=== PATIENT | male | born 1955 | race Caucasian/White ===

== ENCOUNTER 2017-04-12 14:59 | Emergency (ER) | payer OTHER ==
[~2017-04-12] VITALS: Ht 177.8 cm; Wt 54.4 kg
[2017-04-12 16:20] LABS: BASOPHILS % (AUTO) 1.2 % (0.0-2.0); MEAN CORPUSCULAR HEMOGLOBIN 29.1 PG (27.0-31.0); MEAN CORPUSCULAR HGB CONC 32.8 G/DL (32.0-36.0); MEAN CORPUSCULAR VOLUME 89 FL (80-99); MEAN PLATELET VOLUME 5.5 FL (6.5-10.1); MONOCYTES % (AUTO) 7.9 % (1.0-10.0); NEUTROPHILS % (AUTO) 63.8 % (45.0-75.0); PLATELET COUNT 273 K/UL (150-450); RED BLOOD COUNT 3.98 M/UL (4.70-6.10); RED CELL DISTRIBUTION WIDTH 11.2 % (11.6-14.8); WHITE BLOOD COUNT 12.5 K/UL (4.8-10.8)
[2017-04-12 16:54] LABS: ALANINE AMINOTRANSFERASE 9 U/L (3-41); ALBUMIN/GLOBULIN RATIO 1.3 (1.0-2.7); ANION GAP 11 (5-15); ASPARTATE AMINO TRANSFERASE 13 U/L (5-40); CALCIUM 9.5 mg/dL (8.6-10.2); CARBON DIOXIDE 27 mEQ/L (20-30); CHLORIDE 93 mEQ/L (98-107); CREATININE 0.8 mg/dL (0.7-1.2); GLOMERULAR FILTRATION RATE > 60 mL/min (>60); HEMOLYSIS 44; POTASSIUM 4.7 mEQ/L (3.4-4.9); SODIUM 131 mEQ/L (135-145); TOTAL PROTEIN 6.5 g/dL (6.6-8.7)
[2017-04-12 16:55] LABS: TROPONIN I 0.003 ng/mL (0.000-0.056)
[2017-04-12 17:05] LABS: CKMB 1.7 ng/mL (< 6.7)
[2017-04-12] MEDS ORDERED: Enoxaparin 60mg Inj SUBQ ONE (18:30)
--- NOTE | 2017-04-12 18:38 | Emergency Room Report ---
History of Present Illness General Chief Complaint: Generalized Weakness Source: Patient, EMS Present Illness HPI 61YOM came in with 1 month of 15lb unintentional weight loss, loss of appetite, ?doesnt like food at SNF. Not getting out of bed much lately. Bedsores on right hip, top of head History of DM Denies history of TB, HIV, CHF, CAD Allergies: Coded Allergies: No Known Allergies (Unverified , 04/12/17) Patient History Past Medical History: DM Past Surgical History: none Pertinent Family History: none Social History: Denies: smoking, alcohol use, drug use Immunizations: UTD Reviewed Nursing Documentation: PMH: Agreed, PSxH: Agreed Nursing Documentation-PMH Hx Hypertension: Yes Hx Diabetes: Yes History Of Psychiatric Problem: Yes - anxiety Review of Systems All Other Systems: negative except mentioned in HPI Physical Exam Vital Signs Date Time Temp Pulse Resp B/P (MAP) Pulse Ox O2 Delivery O2 Flow Rate FiO2 04/12/17 15:04 98.2 88 16 92/68 98 Room Air Sp02 EP Interpretation: reviewed, normal General Appearance: normal inspection, well appearing, no apparent distress, alert, GCS 15, non-toxic Head: normocephalic, atraumatic Eyes: bilateral eye PERRL, bilateral eye EOMI ENT: normal ENT inspection, hearing grossly normal, normal voice Neck: normal inspection, full range of motion, supple, no bony tend Respiratory: normal inspection, lungs clear, normal breath sounds, no respiratory distress, no retraction, no wheezing Cardiovascular #1: regular rate, rhythm, no edema Gastrointestinal: normal inspection, normal bowel sounds, non tender, soft, no guarding, no hernia Genitourinary: no CVA tenderness Musculoskeletal: normal inspection, back normal, normal range of motion, Francy' s Sign negative Neurologic: normal inspection, alert, oriented x3, responsive, living specialist III-XII nml as tested, motor strength/tone normal, speech normal Psychiatric: normal inspection, judgement/insight normal, mood/affect normal Skin: no rash, other - Stage 1 decub right hip. Also stage 1 decub to top of head Medical Decision Making Diagnostic Impression: Primary Impression: Unintentional weight loss Additional Impression: Troponin level elevated ER Course VSS. Afebrile. Patient ate 3 sandwiches in ED, 3 juices Mildly elevated troponin but denies chest pain, SOB, abd pain ECG is NSR, no ischemia Serial troponin increase from 0.003 to 0.006 after 3 hours Was given ASA, lovenox. Still asymptomatic at 812pm Walking around ED Endorsed to Dr Brandt at 712pm for transfer EKG Diagnostic Results Rate: normal Rhythm: NSR ST Segments: no acute changes ASA given to the pt in ED: No Rhythm Strip Diag. Results EP Interpretation: yes Rate: 63 Rhythm: NSR, no PVC's, no ectopy Chest X-Ray Diagnostic Results Chest X-Ray Diagnostic Results : Chest X-Ray Ordered: Yes # of Views/Limited/Complete: 1 View Indication: Other - Weakness EP Interpretation: Yes Interpretation: no consolidation, no effusion, no pneumothorax, no acute cardiopulmonary disease Impression: No acute disease Electronically Signed by: Dr Megha Logan MD Last Vital Signs Date Time Temp Pulse Resp B/P (MAP) Pulse Ox O2 Delivery O2 Flow Rate FiO2 04/12/17 15:04 98.2 88 16 92/68 98 Room Air Status: improved Disposition: ADMITTED INPATIENT Condition: Serious Referrals: ROMINA SIMMS (PCP) MEGHA LOGAN M.D. Apr 12, 2017 18:38
[2017-04-12 20:06] VITALS: BP 112/66
[2017-04-12 20:31] VITALS: BP 112/66
[2017-04-12 21:29] LABS: INR 1.1 (0.9-1.1); PROTHROMBIN TIME 11.5 SEC (9.30-11.50)
--- NOTE | 2017-04-13 11:08 | Diagnostic Imaging Report ---
Indication: Shortness of breath Technique: XRAY CHEST 1 V Comparison: None Findings: Cardiomediastinal silhouette is within normal limits. There is no gross consolidation, pneumothorax or pleural effusion. Atherosclerotic changes are present. Osseous structures demonstrate no acute abnormality. Lungs are mildly hyperinflated. Impression: No acute cardiopulmonary disease.
--- NOTE | 2017-04-18 23:11 | Cardiology Report ---
APPROVED REPORT EKG Measurement Heart [id number] Normal sinus rhythm Nonspecific ST abnormality Abnormal ECG
== END 2017-04-12 20:33 | disposition other institution (70) ==
LOC: EDBD 14:59 → EMR 15:40 → EDBEDREQSVC 18:03 → EDBEDREQ 18:04 → EMR 20:33
DX: R63.4 Abnormal weight loss (principal); R79.89 Other specified abnormal findings of blood chemistry; E11.9 Type 2 diabetes mellitus without complications; I10 Essential (primary) hypertension; F41.9 Anxiety disorder, unspecified
CPT/HCPCS: 36415; 71010; 80053; 82550; 82553; 84484; 85025; 85610; 85730; 93005; 99285; J1650

== ENCOUNTER 2017-12-15 19:07 | Emergency (ER) | payer OTHER ==
[~2017-12-15] VITALS: Ht 180.3 cm; Wt 59.0 kg
[2017-12-15] MEDS ORDERED: Bacitracin Oint UD TOPIC ONE (20:15)
--- NOTE | 2017-12-15 23:05 | Emergency Room Report ---
History of Present Illness General Chief Complaint: Multiple Trauma/Fall Source: Patient, EMS Present Illness HPI Patient was sent from [facility] for evaluation after a fall and head injury. Uncertain whether he passed out but he denies this. Scraped eyebrow area. Denies pain there to me. The patient's complaining about to mouth/gum pain after having recent gum surgery several days ago. On antibiotics for this. He states his tetanus is up-to-date. The patient is a diabetic on insulin and metformin. H/O muscle weakness/neuropathy No chest pain, palpitations, constipation, dysuria, new rashes, neck tenderness , cough, NVD Depressed - on psych meds. H/O DVT, no calf tenderness/swelling Allergies: Coded Allergies: No Known Allergies (Unverified , 04/12/17) Patient History Past Medical History: see triage record Social History Narrative SNF Reviewed Nursing Documentation: PMH: Agreed; PSxH: Agreed Nursing Documentation-PMH Past Medical History: No History, Except For Hx Cardiac Problems: No - neuropathy, hyperlipidemia Hx Hypertension: Yes Hx Diabetes: Yes - Type 2 Hx Dialysis: No - Deep Vein Thrombosis History Of Psychiatric Problem: Yes - Anxiety, Psychosis Hx Neurological Problems: Yes - Neuralgia, Neuritis Review of Systems All Other Systems: negative except mentioned in HPI Physical Exam Vital Signs Date Time Temp Pulse Resp B/P (MAP) Pulse Ox O2 Delivery O2 Flow Rate FiO2 12/15/17 18:58 98.1 82 16 84/61 98 Room Air 98.1 Sp02 EP Interpretation: reviewed, normal General Appearance: no apparent distress, alert, GCS 15, non-toxic, Chronically Ill Head: normocephalic Eyes: bilateral eye normal inspection, bilateral eye PERRL ENT: moist mucus membranes - gum pain and mouth pain Neck: supple, no bony tend Respiratory: chest non-tender, lungs clear, normal breath sounds Cardiovascular #1: regular rate, rhythm Cardiovascular #2: 2+ radial (R) Gastrointestinal: normal inspection, normal bowel sounds, non tender, no mass, non-distended Musculoskeletal: back normal, normal range of motion Neurologic: alert, DTRs symmetric, sensory intact, motor weakness - generalized weakness, oriented - X2 Psychiatric: depressed affect Skin: warm/dry, abrasions - L eyebrow Medical Decision Making Diagnostic Impression: Primary Impression: Head injury Qualified Codes: S09.90XA - Unspecified injury of head, initial encounter Additional Impression: Diabetes Qualified Codes: E11.42 - Type 2 diabetes mellitus with diabetic polyneuropathy; Z79.4 - [facility] (current) use of insulin ER Course Patient presents after fall and head injury. Differential includes bleed, contusion, abrasion. The patient remembers falling. He has no neck pain. CT is indicated. He's not on Coumadin at this time even though he has a history of DVTs in the past. The patient declines Tylenol. He's also refusing to have bacitracin applied. CT with chronic changes, no bleed. Accucheck 121. Patient stable for outpatient observation and treatment. CT/MRI/US Diagnostic Results CT/MRI/US Diagnostic Results : Imaging Test Ordered: head Impression no bleed Last Vital Signs Date Time Temp Pulse Resp B/P (MAP) Pulse Ox O2 Delivery O2 Flow Rate FiO2 12/16/17 01:13 98.1 69 16 108/69 97 Room Air 98.1 Status: improved Disposition: [facility] SN[facility] Condition: Improved Scripts Bacitracin (Bacitracin) 28.4 Gm Oint...g. 1 APPLIC TOPIC BID, #20 GM Prov: Davy Cowart M.D. 12/15/17 Referrals: [facility],REFERRING (PCP) Davy Cowart M.D. Dec 15, 2017 23:05
[2017-12-15] MEDS ORDERED: BACITRACIN15 GM TOPIC (23:08)
[2017-12-15] MEDS ORDERED: ACETAMINOP160 MG/55 ORAL (23:11)
[2017-12-15] MEDS ORDERED: AMOXICILLI400 MG/5 M ORAL (23:12)
[2017-12-15] MEDS ORDERED: LANTUS SOL100 UNIT/1 SUBQ ×2 (23:13→23:14)
[2017-12-15] MEDS ORDERED: GABAPENTIN100 MG ORAL (23:14)
[2017-12-15] MEDS ORDERED: BENADRYL25 MG ORAL (23:14)
[2017-12-15] MEDS ORDERED: GLUCAGEN1 M1 IJ (23:15)
[2017-12-15] MEDS ORDERED: IBUPROFEN600 MG ORAL (23:16)
[2017-12-15] MEDS ORDERED: MULTIVITAMINS1 EAC2 ORAL (23:17)
[2017-12-15] MEDS ORDERED: METFORMIN HCL500 M1 ORAL (23:17)
[2017-12-15] MEDS ORDERED: MILK OF MA400 MG/51 ORAL (23:17)
[2017-12-15] MEDS ORDERED: NORCO 5-325 TA1 EACH ORAL (23:18)
[2017-12-15] MEDS ORDERED: ZYPREXA5 MG ORAL (23:19)
[2017-12-15] MEDS ORDERED: MIRTAZAPINE15 MG ORAL (23:19)
[2017-12-15] MEDS ORDERED: TRAMADOL HCL50 MG ORAL (23:20)
[2017-12-15 23:34] VITALS: BP 113/73
[2017-12-16 01:11] VITALS: BP 108/69
[2017-12-16 01:13] VITALS: BP 108/69
--- NOTE | 2017-12-16 09:07 | Diagnostic Imaging Report ---
Indication: Trauma, pain, status post fall, fell and hit head with abrasion on forehead Technique: spiral acquisitions obtained through the brain. Angled axial and coronal 5 x 5 mm slices were reconstructed. No IV contrast utilized. Radiation dose was minimized using automated exposure control Total dose length product 1492.21 mGycm. CTDIvol(s) 70.38 mGy Comparison: none FINDINGS: No acute hemorrhage or edema. No mass effect or midline shift. There is age-related enlargement of the ventricles and extra axial CSF spaces. There is periventricular deep white matter ischemic change. Normal kilpatrick-white differentiation. Visualized orbits are unremarkable. Visualized sinuses are unremarkable. Intact calvarium. There is minimal supraorbital scalp soft tissue swelling IMPRESSION: Chronic and age-related changes. Negative for acute intracranial bleed or mass effect Evidence of minimal supraorbital scalp soft tissue trauma This agrees with the preliminary interpretation provided overnight by [facility] teleradiology service. The CT scanner at [facility] is accredited by the [employer] and the scans are performed using protocols designed to limit radiation exposure to as low as reasonably achievable to attain images of sufficient resolution adequate for diagnostic evaluation
== END 2017-12-16 01:13 ==
LOC: EDBD 19:07 → EMR 20:05
DX: S00.212A Abrasion of left eyelid and periocular area, initial encounter (principal); W19.XXXA Unspecified fall, initial encounter; Y92.199 Unspecified place in other specified residential institution as the place of occurrence of the external cause; E11.9 Type 2 diabetes mellitus without complications; Z79.4 Long term (current) use of insulin; I10 Essential (primary) hypertension
CPT/HCPCS: 70450; 82962; 99284

== ENCOUNTER 2018-01-28 16:26 | Inpatient (IN) | payer OTHER ==
[~2018-01-28] VITALS: Ht 177.8 cm; Wt 71.7 kg
[~2018-01-28 16:26] MED LIST: ACETAMINOP160 MG/55 ORAL; AMOXICILLI400 MG/5 M ORAL; BACITRACIN15 GM TOPIC; BENADRYL25 MG ORAL; GABAPENTIN100 MG ORAL; GLUCAGEN1 M1 IJ; IBUPROFEN600 MG ORAL; LANTUS SOL100 UNIT/1 SUBQ; METFORMIN HCL500 M1 ORAL; MILK OF MA400 MG/51 ORAL; MIRTAZAPINE15 MG ORAL; MULTIVITAMINS1 EAC2 ORAL; NORCO 5-325 TA1 EACH ORAL; TRAMADOL HCL50 MG ORAL; ZYPREXA5 MG ORAL
[2018-01-28 16:34] VITALS: BP 96/59
[2018-01-28 17:27] LABS: BASOPHILS % (AUTO) 1.3 % (0.0-2.0); EOSINOPHILS % (AUTO) 7.1 % (0.0-3.0); HEMATOCRIT 38.3 % (42.0-52.0); HEMOGLOBIN 13.1 G/DL (14.2-18.0); LYMPHOCYTES % (AUTO) 23.8 % (20.0-45.0); MEAN CORPUSCULAR VOLUME 87 FL (80-99); MONOCYTES % (AUTO) 6.1 % (1.0-10.0); NEUTROPHILS % (AUTO) 61.7 % (45.0-75.0); PLATELET COUNT 244 K/UL (150-450); RED BLOOD COUNT 4.42 M/UL (4.70-6.10); WHITE BLOOD COUNT 11.1 K/UL (4.8-10.8)
[2018-01-28 17:32] LABS: INR 1.1 (0.9-1.1)
[2018-01-28 17:39] LABS: ANION GAP 9 mmol/L (5-15); BLOOD UREA NITROGEN 13 mg/dL (7-18); CALCIUM 9.8 MG/DL (8.5-10.1); CARBON DIOXIDE 28 MMOL/L (21-32); CHLORIDE 100 MMOL/L (98-107); CREATININE 0.8 MG/DL (0.55-1.30); POTASSIUM 4.3 MMOL/L (3.5-5.1); SODIUM 137 MMOL/L (136-145)
[2018-01-28 18:00] LABS: ALANINE AMINOTRANSFERASE 42 U/L (12-78); ALBUMIN 3.8 G/DL (3.4-5.0); ALKALINE PHOSPHATASE 98 U/L (46-116); ASPARTATE AMINO TRANSFERASE 16 U/L (15-37); BILIRUBIN,TOTAL 0.4 MG/DL (0.2-1.0); CKMB 1.3 NG/ML (0.0-3.6); CREATINE KINASE 62 U/L (26-308)
[2018-01-28 18:15] VITALS: BP 98/81
[2018-01-28 19:56] VITALS: BP 102/59
[2018-01-28] MEDS ORDERED: MULTIVITAMINS1 EAC8 ORAL (20:12)
[2018-01-28] MEDS ORDERED: ZYPREXA2.5 MG ORAL (20:12)
[2018-01-28] MEDS ORDERED: ACETAMINOPHEN325 M1 ORAL (20:12)
[2018-01-28 21:15] VITALS: BP 132/82
--- NOTE | 2018-01-28 21:24 | Emergency Room Report ---
History of Present Illness General Chief Complaint: Syncope Present Illness Allergies: Coded Allergies: No Known Allergies (Unverified , 04/12/17) Nursing Documentation-PMH Hx Hypertension: Yes Hx Diabetes: Yes - DM II Hx Dialysis: No - Deep Vein Thrombosis Hx Neurological Problems: Yes - Neuralgia, Neuritis Physical Exam Vital Signs Date Time Temp Pulse Resp B/P (MAP) Pulse Ox O2 Delivery O2 Flow Rate FiO2 01/28/18 16:20 98.1 86 16 91/59 96 Room Air 98.1 Medical Decision Making Diagnostic Impression: Primary Impression: Syncope Additional Impression: Hyperglycemia ER Course This patient presents with multiple episodes of syncope. He also has uncontrolled diabetes with a blood sugar of 298. I'm unsure of the etiology of this patient's syncope. Otherwise, laboratory workup is unremarkable and noncontributory. EKG is within normal limits. The patient will be admitted for further workup for syncope to include a cardiac workup. He will also need better control of his diabetes. Possibly he could have the orthostatic from poorly controlled diabetes and dehydration. The patient is admitted for further evaluation and treatment. Laboratory Tests Test 01/28/18 16:35 White Blood Count 11.1 K/UL (4.8-10.8) H Red Blood Count 4.42 M/UL (4.70-6.10) L Hemoglobin 13.1 G/DL (14.2-18.0) L Hematocrit 38.3 % (42.0-52.0) L Mean Corpuscular Volume 87 FL (80-99) Mean Corpuscular Hemoglobin 29.7 PG (27.0-31.0) Mean Corpuscular Hemoglobin Concent 34.3 G/DL (32.0-36.0) Red Cell Distribution Width 12.0 % (11.6-14.8) Platelet Count 244 K/UL (150-450) Mean Platelet Volume 7.8 FL (6.5-10.1) Neutrophils (%) (Auto) 61.7 % (45.0-75.0) Lymphocytes (%) (Auto) 23.8 % (20.0-45.0) Monocytes (%) (Auto) 6.1 % (1.0-10.0) Eosinophils (%) (Auto) 7.1 % (0.0-3.0) H Basophils (%) (Auto) 1.3 % (0.0-2.0) Prothrombin Time 11.7 SEC (9.30-11.50) H Prothrombin Time INR 1.1 (0.9-1.1) PTT 27 SEC (23-33) Sodium Level 137 MMOL/L (136-145) Potassium Level 4.3 MMOL/L (3.5-5.1) Chloride Level 100 MMOL/L (98-107) Carbon Dioxide Level 28 MMOL/L (21-32) Anion Gap 9 mmol/L (5-15) Blood Urea Nitrogen 13 mg/dL (7-18) Creatinine 0.8 MG/DL (0.55-1.30) Estimate Glomerular Filtration Rate > 60 mL/min (>60) Glucose Level 298 MG/DL (74-106) H Calcium Level 9.8 MG/DL (8.5-10.1) Total Bilirubin 0.4 MG/DL (0.2-1.0) Aspartate Amino Transferase (AST) 16 U/L (15-37) Alanine Aminotransferase (ALT) 42 U/L (12-78) Alkaline Phosphatase 98 U/L (46-116) Total Creatine Kinase 62 U/L (26-308) Creatine Kinase MB 1.3 NG/ML (0.0-3.6) Creatine Kinase MB Relative Index 2.0 Troponin I 0.000 ng/mL (0.000-0.056) Total Protein 7.6 G/DL (6.4-8.2) Albumin 3.8 G/DL (3.4-5.0) Globulin 3.8 g/dL Albumin/Globulin Ratio 1.0 (1.0-2.7) EKG Diagnostic Results Rate: normal Rhythm: NSR ST Segments: no acute changes Rhythm Strip Diag. Results EP Interpretation: yes Rate: 70's Rhythm: NSR, no PVC's, no ectopy Chest X-Ray Diagnostic Results Chest X-Ray Diagnostic Results : Chest X-Ray Ordered: Yes # of Views/Limited/Complete: 1 View Indication: Other - syncope EP Interpretation: Yes Interpretation: no consolidation, no effusion, no pneumothorax, no acute cardiopulmonary disease Impression: No acute disease Electronically Signed by: Van CT/MRI/US Diagnostic Results CT/MRI/US Diagnostic Results : Imaging Test Ordered: CT head Impression No acute findings. See official report. Last Vital Signs Date Time Temp Pulse Resp B/P (MAP) Pulse Ox O2 Delivery O2 Flow Rate FiO2 01/28/18 19:56 98.1 73 16 102/59 93 Room Air 98.1 Disposition: ADMITTED INPATIENT Condition: Stable Referrals: Jose Michele MD (PCP) Delia Joe DO Jan 28, 2018 21:24
--- NOTE | 2018-01-28 21:30 | Emergency Room Report ---
History of Present Illness General Chief Complaint: Syncope Source: Patient Present Illness HPI [facility] episodes of syncope. Patient states that he will suddenly collapse. He denies associated symptoms. He denies recent illness. He denies chest pain or shortness of breath. He denies abdominal pain. He has no other complaints. Allergies: Coded Allergies: No Known Allergies (Unverified , 04/12/17) Patient History Past Medical History: see triage record, DM, HTN, other - DVT Social History: Denies: smoking, alcohol use, drug use Reviewed Nursing Documentation: PMH: Agreed; PSxH: Agreed Nursing Documentation-PMH Hx Hypertension: Yes Hx Diabetes: Yes - DM II Hx Dialysis: No - Deep Vein Thrombosis Hx Neurological Problems: Yes - Neuralgia, Neuritis Review of Systems All Other Systems: negative except mentioned in HPI Physical Exam Vital Signs Date Time Temp Pulse Resp B/P (MAP) Pulse Ox O2 Delivery O2 Flow Rate FiO2 01/28/18 16:20 98.1 86 16 91/59 96 Room Air 98.1 General Appearance: well appearing, no apparent distress Head: normocephalic, atraumatic ENT: hearing grossly normal, normal voice Neck: full range of motion, supple Respiratory: normal inspection, chest non-tender, lungs clear, normal breath sounds, no respiratory distress, no retraction, no accessory muscle use, speaking full sentences Cardiovascular #1: regular rate, rhythm, no edema Gastrointestinal: normal inspection, non tender, no mass, no guarding, no rebound Musculoskeletal: normal inspection, digits/nails normal, normal range of motion , non-tender Neurologic: alert, oriented x3, 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 EKG Diagnostic Results Rate: normal Rhythm: NSR ST Segments: no acute changes Rhythm Strip Diag. Results EP Interpretation: yes Rate: 70's Rhythm: NSR, no PVC's, no ectopy Last Vital Signs Date Time Temp Pulse Resp B/P (MAP) Pulse Ox O2 Delivery O2 Flow Rate FiO2 01/28/18 19:56 98.1 73 16 102/59 93 Room Air 98.1 Disposition: ADMITTED INPATIENT Condition: Stable Referrals: Jose Michele MD (PCP) Delia Joe DO Jan 28, 2018 21:30
[2018-01-28] MEDS ORDERED: Mylanta II UD 30ml ORAL PRN (22:15)
[2018-01-28] MEDS ORDERED: Nitroglycerin Subl 0.4mg tab SL PRN (22:15)
[2018-01-28] MEDS ORDERED: LORazepam Inj 2mg/ml 1ml IV PRN (22:15)
[2018-01-28] MEDS ORDERED: Morphine Sulfate 2mg/ml Inj(IV/IM USE ONLY) IVP PRN (22:15)
[2018-01-28] MEDS ORDERED: Miralax 17gm pkt ORAL PRN (22:15)
[2018-01-28] MEDS ORDERED: Albuterol/Ipratropium 3ml neb HHN PRN (22:15)
[2018-01-28] MEDS: OLANZapine 2.5mg tab ORAL SCH (22:45)
[2018-01-28] MEDS: Heparin 5000 units/ml inj SUBQ SCH (22:48)
[2018-01-29] VITALS: BP 128/81
[2018-01-29 04:00] VITALS: BP 135/86
[2018-01-29] MEDS: NovoLOG Insulin Flexpen SUBQ SCH ×5 (06:07→20:46)
[2018-01-29 07:36] LABS: BASOPHILS % (AUTO) 1.2 % (0.0-2.0); EOSINOPHILS % (AUTO) 9.8 % (0.0-3.0); HEMATOCRIT 37.1 % (42.0-52.0); HEMOGLOBIN 12.7 G/DL (14.2-18.0); LYMPHOCYTES % (AUTO) 29.6 % (20.0-45.0); MEAN CORPUSCULAR VOLUME 87 FL (80-99); MONOCYTES % (AUTO) 8.4 % (1.0-10.0); NEUTROPHILS % (AUTO) 50.9 % (45.0-75.0); PLATELET COUNT 200 K/UL (150-450); RED BLOOD COUNT 4.27 M/UL (4.70-6.10); RED CELL DISTRIBUTION WIDTH 11.6 % (11.6-14.8); WHITE BLOOD COUNT 9.1 K/UL (4.8-10.8)
[2018-01-29 08:00] VITALS: BP 94/59
[2018-01-29 08:11] LABS: INR 1.1 (0.9-1.1)
[2018-01-29 08:13] LABS: ALANINE AMINOTRANSFERASE 36 U/L (12-78); ALBUMIN 3.2 G/DL (3.4-5.0); ALBUMIN/GLOBULIN RATIO 0.9 (1.0-2.7); ALKALINE PHOSPHATASE 90 U/L (46-116); ANION GAP 9 mmol/L (5-15); ASPARTATE AMINO TRANSFERASE 15 U/L (15-37); BILIRUBIN,TOTAL 0.2 MG/DL (0.2-1.0); BLOOD UREA NITROGEN 14 mg/dL (7-18); CALCIUM 9.2 MG/DL (8.5-10.1); CARBON DIOXIDE 26 MMOL/L (21-32); CHLORIDE 103 MMOL/L (98-107); CHOLESTEROL 142 MG/DL (< 200); CREATININE 0.5 MG/DL (0.55-1.30); HDL CHOLESTEROL 33 MG/DL (40-60); POTASSIUM 4.1 MMOL/L (3.5-5.1); SODIUM 137 MMOL/L (136-145); TRIGLYCERIDES 101 MG/DL (30-150)
--- NOTE | 2018-01-29 08:26 | Diagnostic Imaging Report ---
Indications: Syncope Technique: Spiral acquisitions obtained through the brain. Angled axial and coronal 5 x 5 mm slices were reconstructed. Total dose length product 1552.03 mGycm. CTDI vol(s) 70.38 mGy. Dose reduction achieved using automated exposure control Comparison: 12/15/2017 Findings: Again demonstrated is mild age-related enlargement of the ventricles and extra axial CSF spaces. Mild periventricular deep white matter low-attenuation is again demonstrated. No acute intracranial hemorrhage or edema. No mass effect nor midline shift. Normal kilpatrick-white differentiation. The calvarium is intact. The orbits and sinuses are unremarkable. Previously demonstrated left supraorbital scalp soft tissue swelling is no longer evident. Findings are otherwise unchanged Impression: Mild age-related changes. Negative for acute intracranial bleed or mass effect This agrees with the preliminary interpretation provided overnight by [employer] [facility]erad[facility] service. The CT scanner at [facility] is accredited by the [employer] and the scans are performed using protocols designed to limit radiation exposure to as low as reasonably achievable to attain images of sufficient resolution adequate for diagnostic evaluation.
[2018-01-29] MEDS: Heparin 5000 units/ml inj SUBQ SCH ×2 (09:46→20:47)
--- NOTE | 2018-01-29 11:18 | Diagnostic Imaging Report ---
Indication: Syncope Technique: One view of the chest Comparison: 04/12/2017 Findings: Lungs and pleural spaces are clear. Heart size is normal. No significant change Impression: No acute process
--- NOTE | 2018-01-29 11:21 | History & Physical ---
History and Physical History & Physicial Dictated for Int Med-Dr Michele no. [id number]. Magdy Church MD Jan 29, 2018 11:21
[2018-01-29 12:00] VITALS: BP 97/61
--- NOTE | 2018-01-29 12:04 | Consultation ---
History of Present Illness General Date patient seen: Jan 29, 2018 Chief Complaint: Syncope Present Illness HPI 62 year male with hx of psychosis, DM, depression, DVT,residential facility resident brought in by paramedics with cc of multiple episodes of syncope. Patient states that he will suddenly collapse. He denies associated symptoms. He denies recent illness. He denies chest pain or shortness of breath. Pt is not very talkative and keep stating the he doesn't feel good. Allergies: Coded Allergies: No Known Allergies (Unverified , 04/12/17) Medication History Scheduled Gabapentin* (Gabapentin*), 100 MG ORAL THREE TIMES A DAY, (Reported) Insulin Glargine (Lantus), 20 SUBQ BEDTIME, (Reported) Insulin Glargine (Lantus), 30 SUBQ DAILY, (Reported) Metformin Hcl* (Metformin Hcl*), 500 MG ORAL TWICE A DAY, (Reported) Mirtazapine* (Remeron*), 7.5 MG ORAL BEDTIME, (Reported) Multivitamin With Minerals (Multivitamins With Minerals*), 1 TAB ORAL DAILY, ( Reported) Olanzapine* (Zyprexa*), 2.5 MG ORAL QHS, (Reported) Scheduled PRN Acetaminophen* (Acetaminophen 325MG Tablet*), 325 MG ORAL Q6H PRN for Fever/ Headache/Mild Pain, (Reported) Diphenhydramine Hcl* (Benadryl*), 25 MG ORAL Q4HR PRN for Itching, (Reported) Glucagon,Human Recombinant (Glucagen), 1 MG IJ DAILY PRN for Hypoglycemia, ( Reported) Hydrocodone Bit/Acetaminophen 5-325* ([place] 5-325*), 1 TAB ORAL Q12HR PRN for Severe Pain (Pain Scale 7-10), (Reported) Ibuprofen* (Motrin*), 400 MG ORAL Q6HR PRN for Mild Pain (Pain Scale 1-3), ( Reported) Magnesium Hydroxide* (Milk Of Magnesia*), 30 ML ORAL DAILY PRN for Constipation, (Reported) Tramadol Hcl* (Ultram*), 50 MG ORAL Q12 PRN for Moderate Pain (Pain Scale 4-6), (Reported) Discontinued Medications Acetaminophen* (Acetaminophen*), 325 MG ORAL Q6H PRN for Mild Pain/Temp > 100.5, (Reported) Discontinued Reason: Prescription changed Amoxicillin (Amoxicillin), 500 MG ORAL TID, (Reported) Discontinued Reason: Therapy completed Bacitracin (Bacitracin), 1 APPLIC TOPIC BID Discontinued Reason: Therapy completed Multivitamins* (Multivitamins*), 1 TAB ORAL DAILY, (Reported) Discontinued Reason: Prescription changed Olanzapine* (Zyprexa*), 5 MG ORAL DAILY, (Reported) Discontinued Reason: Prescription changed Patient History Healthcare decision maker Resuscitation status Full Code Advanced Directive on File Past Medical/Surgical History Past Medical/Surgical History: (1) Depression (2) Psychosis (3) Diabetes Review of Systems All Other Systems: negative except mentioned in HPI Physical Exam General Appearance: WD/WN Lines, tubes and drains: peripheral HEENT: normocephalic, atraumatic Neck: non-tender, normal alignment Respiratory/Chest: chest wall non-tender, lungs clear Breasts: no masses Cardiovascular/Chest: normal peripheral pulses Abdomen: normal bowel sounds, non tender Genitourinary/Rectal: normal genital exam Extremities: normal range of motion Skin Exam: normal pigmentation 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 Lymphatic: anterior cervical Last 24 Hour Vital Signs Date Time Temp Pulse Resp B/P (MAP) Pulse Ox O2 Delivery O2 Flow Rate FiO2 01/29/18 07:21 72 16 Room Air 21 01/29/18 04:00 69 01/29/18 04:00 98.4 71 20 135/86 (102) 100 98.4 01/29/18 00:00 72 01/29/18 00:00 97.3 72 20 128/81 (97) 97 97.3 01/28/18 21:15 Room Air 01/28/18 21:15 97.6 73 20 132/82 (99) 99 97.6 01/28/18 21:06 138/89 01/28/18 19:56 98.1 73 16 102/59 93 Room Air 98.1 01/28/18 18:15 73 16 98/81 93 Room Air 01/28/18 16:34 98.1 83 15 96/59 99 Room Air 98.1 01/28/18 16:20 98.1 86 16 91/59 96 Room Air 98.1 Intake and Output 01/28/18 01/29/18 19:00 07:00 Intake Total 1000 ml Balance 1000 ml Intake Oral 0 ml IV Total 1000 ml Laboratory Tests Test 01/28/18 16:35 01/29/18 06:29 White Blood Count 11.1 K/UL (4.8-10.8) H 9.1 K/UL (4.8-10.8) Red Blood Count 4.42 M/UL (4.70-6.10) L 4.27 M/UL (4.70-6.10) L Hemoglobin 13.1 G/DL (14.2-18.0) L 12.7 G/DL (14.2-18.0) L Hematocrit 38.3 % (42.0-52.0) L 37.1 % (42.0-52.0) L Mean Corpuscular Volume 87 FL (80-99) 87 FL (80-99) Mean Corpuscular Hemoglobin 29.7 PG (27.0-31.0) 29.8 PG (27.0-31.0) Mean Corpuscular Hemoglobin Concent 34.3 G/DL (32.0-36.0) 34.3 G/DL (32.0-36.0) Red Cell Distribution Width 12.0 % (11.6-14.8) 11.6 % (11.6-14.8) Platelet Count 244 K/UL (150-450) 200 K/UL (150-450) Mean Platelet Volume 7.8 FL (6.5-10.1) 7.9 FL (6.5-10.1) Neutrophils (%) (Auto) 61.7 % (45.0-75.0) 50.9 % (45.0-75.0) Lymphocytes (%) (Auto) 23.8 % (20.0-45.0) 29.6 % (20.0-45.0) Monocytes (%) (Auto) 6.1 % (1.0-10.0) 8.4 % (1.0-10.0) Eosinophils (%) (Auto) 7.1 % (0.0-3.0) H 9.8 % (0.0-3.0) H Basophils (%) (Auto) 1.3 % (0.0-2.0) 1.2 % (0.0-2.0) Prothrombin Time 11.7 SEC (9.30-11.50) H 11.4 SEC (9.30-11.50) Prothromb Time International Ratio 1.1 (0.9-1.1) 1.1 (0.9-1.1) Activated Partial Thromboplast Time 27 SEC (23-33) 26 SEC (23-33) Sodium Level 137 MMOL/L (136-145) 137 MMOL/L (136-145) Potassium Level 4.3 MMOL/L (3.5-5.1) 4.1 MMOL/L (3.5-5.1) Chloride Level 100 MMOL/L (98-107) 103 MMOL/L (98-107) Carbon Dioxide Level 28 MMOL/L (21-32) 26 MMOL/L (21-32) Anion Gap 9 mmol/L (5-15) 9 mmol/L (5-15) Blood Urea Nitrogen 13 mg/dL (7-18) 14 mg/dL (7-18) Creatinine 0.8 MG/DL (0.55-1.30) 0.5 MG/DL (0.55-1.30) L Estimat Glomerular Filtration Rate > 60 mL/min (>60) > 60 mL/min (>60) Glucose Level 298 MG/DL (74-106) H 231 MG/DL (74-106) H Calcium Level 9.8 MG/DL (8.5-10.1) 9.2 MG/DL (8.5-10.1) Total Bilirubin 0.4 MG/DL (0.2-1.0) 0.2 MG/DL (0.2-1.0) Aspartate Amino Transf (AST/SGOT) 16 U/L (15-37) 15 U/L (15-37) Alanine Aminotransferase (ALT/SGPT) 42 U/L (12-78) 36 U/L (12-78) Alkaline Phosphatase 98 U/L (46-116) 90 U/L (46-116) Total Creatine Kinase 62 U/L (26-308) Creatine Kinase MB 1.3 NG/ML (0.0-3.6) Creatine Kinase MB Relative Index 2.0 Troponin I 0.000 ng/mL (0.000-0.056) Total Protein 7.6 G/DL (6.4-8.2) 6.6 G/DL (6.4-8.2) Albumin 3.8 G/DL (3.4-5.0) 3.2 G/DL (3.4-5.0) L Globulin 3.8 g/dL 3.4 g/dL Albumin/Globulin Ratio 1.0 (1.0-2.7) 0.9 (1.0-2.7) L Triglycerides Level 101 MG/DL (30-150) Cholesterol Level 142 MG/DL (< 200) LDL Cholesterol 97 mg/dL (<100) HDL Cholesterol 33 MG/DL (40-60) L Cholesterol/HDL Ratio 4.3 (3.3-4.4) Thyroid Stimulating Hormone (TSH) 3.256 uiU/mL (0.358-3.740) Height (Feet): 5 Height (Inches): 10.00 Weight (Pounds): 138 Medications Current Medications Medications (Trade) Dose Ordered Sig/Elyssa Route PRN Reason Start Time Stop Time Status Last Admin Dose Admin Acetaminophen (Tylenol) 650 mg Q4H PRN ORAL fever 01/28/18 22:15 02/27/18 22:14 01/28/18 22:46 Al Hydroxide/Mg Hydroxide (Mylanta II) 30 ml Q6H PRN ORAL dyspepsia 01/28/18 22:15 02/27/18 22:14 Albuterol/ Ipratropium (Albuterol/ Ipratropium) 3 ml Q4H PRN HHN Shortness of Breath 01/28/18 22:15 02/02/18 22:14 Clonidine HCl (Catapres Tab) 0.1 mg Q4H PRN ORAL For High Blood Pressure 01/28/18 22:15 02/27/18 22:14 Dextrose (Dextrose 50%) STAT PRN IV Hypoglycemia 01/28/18 22:15 02/27/18 22:14 Dextrose (Dextrose 50%) 25 ml STAT PRN IV Hypoglycemia 01/28/18 22:15 02/27/18 22:14 Dextrose (Dextrose 50%) 50 ml STAT PRN IV Hypoglycemia 01/28/18 22:15 02/27/18 22:14 Gabapentin (Neurontin) 100 mg THREE TIMES A DAY ORAL 01/29/18 09:00 02/28/18 08:59 01/29/18 09:45 Heparin Sodium (Porcine) (Heparin 5000 units/ml) 5,000 units EVERY 12 HOURS SUBQ 01/28/18 22:30 02/27/18 22:29 01/29/18 09:46 Insulin Aspart (NovoLOG) BEFORE MEALS AND HS SUBQ 01/29/18 06:30 02/28/18 06:29 01/29/18 06:07 Lorazepam (Ativan 2mg/ml 1ml) 0.5 mg Q4H PRN IV For Anxiety 01/28/18 22:15 02/04/18 22:14 Mirtazapine (Remeron) 7.5 mg BEDTIME ORAL 01/28/18 22:30 02/27/18 22:29 01/28/18 22:46 Morphine Sulfate (Morphine Sulfate) 1 mg Q4H PRN IVP For Pain 01-1401/28/18 22:15 02/04/18 22:14 Nitroglycerin (Ntg) 0.4 mg Q5M X 3 DOSES PRN SL Prn Chest Pain 01/28/18 22:15 02/27/18 22:14 Olanzapine (ZyPREXA) 2.5 mg QHS ORAL 01/28/18 22:30 02/27/18 22:29 01/28/18 22:45 Ondansetron HCl (Zofran) 4 mg Q6H PRN IVP Nausea & Vomiting 01/28/18 22:15 02/27/18 22:14 Polyethylene Glycol (Miralax) 17 gm HSPRN PRN ORAL Constipation 01/28/18 22:15 02/27/18 22:14 Temazepam (Restoril) 15 mg HSPRN PRN ORAL Insomnia 01/28/18 22:15 02/04/18 22:14 Assessment/Plan Problem List: (1) Acute encephalopathy ICD Codes: G93.40 - Encephalopathy, unspecified SNOMED: 11714309, 370232699 (2) Depression ICD Codes: F32.9 - Major depressive disorder, single episode, unspecified SNOMED: 87983639 (3) Psychosis ICD Codes: F29 - Unspecified psychosis not due to a substance or known physiological condition SNOMED: 33002704 (4) Diabetes ICD Codes: E11.9 - Type 2 diabetes mellitus without complications SNOMED: 32785412 Assessment/Plan telemetry monitoring psych and neuro evaluation sliding scale venous doppler of legs Hematology to see. Dontae Joshua MD Jan 29, 2018 12:04
--- NOTE | 2018-01-29 14:18 | Consultation ---
History of Present Illness General Date patient seen: Jan 29, 2018 Chief Complaint: Syncope Present Illness HPI 62 year male with hx of psychosis, DM, depression, DVT,[facility] facility resident brought in by paramedics with cc of multiple episodes of syncope. the pt is stable on current meds. Allergies: Coded Allergies: No Known Allergies (Unverified , 04/12/17) Medication History Scheduled Gabapentin* (Gabapentin*), 100 MG ORAL THREE TIMES A DAY, (Reported) Insulin Glargine (Lantus), 20 SUBQ BEDTIME, (Reported) Insulin Glargine (Lantus), 30 SUBQ DAILY, (Reported) Metformin Hcl* (Metformin Hcl*), 500 MG ORAL TWICE A DAY, (Reported) Mirtazapine* (Remeron*), 7.5 MG ORAL BEDTIME, (Reported) Multivitamin With Minerals (Multivitamins With Minerals*), 1 TAB ORAL DAILY, ( Reported) Olanzapine* (Zyprexa*), 2.5 MG ORAL QHS, (Reported) Scheduled PRN Acetaminophen* (Acetaminophen 325MG Tablet*), 325 MG ORAL Q6H PRN for Fever/ Headache/Mild Pain, (Reported) Diphenhydramine Hcl* (Benadryl*), 25 MG ORAL Q4HR PRN for Itching, (Reported) Glucagon,Human Recombinant (Glucagen), 1 MG IJ DAILY PRN for Hypoglycemia, ( Reported) Hydrocodone Bit/Acetaminophen 5-325* ([place] 5-325*), 1 TAB ORAL Q12HR PRN for Severe Pain (Pain Scale 7-10), (Reported) Ibuprofen* (Motrin*), 400 MG ORAL Q6HR PRN for Mild Pain (Pain Scale 1-3), ( Reported) Magnesium Hydroxide* (Milk Of Magnesia*), 30 ML ORAL DAILY PRN for Constipation, (Reported) Tramadol Hcl* (Ultram*), 50 MG ORAL Q12 PRN for Moderate Pain (Pain Scale 4-6), (Reported) Discontinued Medications Acetaminophen* (Acetaminophen*), 325 MG ORAL Q6H PRN for Mild Pain/Temp > 100.5, (Reported) Discontinued Reason: Prescription changed Amoxicillin (Amoxicillin), 500 MG ORAL TID, (Reported) Discontinued Reason: Therapy completed Bacitracin (Bacitracin), 1 APPLIC TOPIC BID Discontinued Reason: Therapy completed Multivitamins* (Multivitamins*), 1 TAB ORAL DAILY, (Reported) Discontinued Reason: Prescription changed Olanzapine* (Zyprexa*), 5 MG ORAL DAILY, (Reported) Discontinued Reason: Prescription changed Patient History Limited by: medical condition History Provided By: Patient, Medical Record, PMD Healthcare decision maker Resuscitation status Full Code Advanced Directive on File Past Medical/Surgical History Past Medical/Surgical History: (1) Head injury (2) Hyperglycemia (3) Syncope (4) Depression (5) Psychosis (6) Diabetes (7) Acute encephalopathy Review of Systems Psychiatric: Reports: prior hx, anxiety, depressed feelings, emotional problems Physical Exam General Appearance: no apparent distress, alert Last 24 Hour Vital Signs Date Time Temp Pulse Resp B/P (MAP) Pulse Ox O2 Delivery O2 Flow Rate FiO2 01/29/18 12:00 69 01/29/18 12:00 97.8 73 16 97/61 (73) 97 97.8 01/29/18 09:00 Room Air 01/29/18 08:00 74 01/29/18 08:00 97.9 74 17 94/59 (71) 97 97.9 01/29/18 07:21 72 16 Room Air 21 01/29/18 04:00 69 01/29/18 04:00 98.4 71 20 135/86 (102) 100 98.4 01/29/18 00:00 72 01/29/18 00:00 97.3 72 20 128/81 (97) 97 97.3 01/28/18 21:15 Room Air 01/28/18 21:15 97.6 73 20 132/82 (99) 99 97.6 01/28/18 21:06 138/89 01/28/18 19:56 98.1 73 16 102/59 93 Room Air 98.1 01/28/18 18:15 73 16 98/81 93 Room Air 01/28/18 16:34 98.1 83 15 96/59 99 Room Air 98.1 01/28/18 16:20 98.1 86 16 91/59 96 Room Air 98.1 Intake and Output 01/28/18 01/29/18 19:00 07:00 Intake Total 1000 ml Balance 1000 ml Intake Oral 0 ml IV Total 1000 ml Laboratory Tests Test 01/28/18 16:35 01/29/18 06:29 White Blood Count 11.1 K/UL (4.8-10.8) H 9.1 K/UL (4.8-10.8) Red Blood Count 4.42 M/UL (4.70-6.10) L 4.27 M/UL (4.70-6.10) L Hemoglobin 13.1 G/DL (14.2-18.0) L 12.7 G/DL (14.2-18.0) L Hematocrit 38.3 % (42.0-52.0) L 37.1 % (42.0-52.0) L Mean Corpuscular Volume 87 FL (80-99) 87 FL (80-99) Mean Corpuscular Hemoglobin 29.7 PG (27.0-31.0) 29.8 PG (27.0-31.0) Mean Corpuscular Hemoglobin Concent 34.3 G/DL (32.0-36.0) 34.3 G/DL (32.0-36.0) Red Cell Distribution Width 12.0 % (11.6-14.8) 11.6 % (11.6-14.8) Platelet Count 244 K/UL (150-450) 200 K/UL (150-450) Mean Platelet Volume 7.8 FL (6.5-10.1) 7.9 FL (6.5-10.1) Neutrophils (%) (Auto) 61.7 % (45.0-75.0) 50.9 % (45.0-75.0) Lymphocytes (%) (Auto) 23.8 % (20.0-45.0) 29.6 % (20.0-45.0) Monocytes (%) (Auto) 6.1 % (1.0-10.0) 8.4 % (1.0-10.0) Eosinophils (%) (Auto) 7.1 % (0.0-3.0) H 9.8 % (0.0-3.0) H Basophils (%) (Auto) 1.3 % (0.0-2.0) 1.2 % (0.0-2.0) Prothrombin Time 11.7 SEC (9.30-11.50) H 11.4 SEC (9.30-11.50) Prothromb Time International Ratio 1.1 (0.9-1.1) 1.1 (0.9-1.1) Activated Partial Thromboplast Time 27 SEC (23-33) 26 SEC (23-33) Sodium Level 137 MMOL/L (136-145) 137 MMOL/L (136-145) Potassium Level 4.3 MMOL/L (3.5-5.1) 4.1 MMOL/L (3.5-5.1) Chloride Level 100 MMOL/L (98-107) 103 MMOL/L (98-107) Carbon Dioxide Level 28 MMOL/L (21-32) 26 MMOL/L (21-32) Anion Gap 9 mmol/L (5-15) 9 mmol/L (5-15) Blood Urea Nitrogen 13 mg/dL (7-18) 14 mg/dL (7-18) Creatinine 0.8 MG/DL (0.55-1.30) 0.5 MG/DL (0.55-1.30) L Estimat Glomerular Filtration Rate > 60 mL/min (>60) > 60 mL/min (>60) Glucose Level 298 MG/DL (74-106) H 231 MG/DL (74-106) H Calcium Level 9.8 MG/DL (8.5-10.1) 9.2 MG/DL (8.5-10.1) Total Bilirubin 0.4 MG/DL (0.2-1.0) 0.2 MG/DL (0.2-1.0) Aspartate Amino Transf (AST/SGOT) 16 U/L (15-37) 15 U/L (15-37) Alanine Aminotransferase (ALT/SGPT) 42 U/L (12-78) 36 U/L (12-78) Alkaline Phosphatase 98 U/L (46-116) 90 U/L (46-116) Total Creatine Kinase 62 U/L (26-308) Creatine Kinase MB 1.3 NG/ML (0.0-3.6) Creatine Kinase MB Relative Index 2.0 Troponin I 0.000 ng/mL (0.000-0.056) Total Protein 7.6 G/DL (6.4-8.2) 6.6 G/DL (6.4-8.2) Albumin 3.8 G/DL (3.4-5.0) 3.2 G/DL (3.4-5.0) L Globulin 3.8 g/dL 3.4 g/dL Albumin/Globulin Ratio 1.0 (1.0-2.7) 0.9 (1.0-2.7) L Triglycerides Level 101 MG/DL (30-150) Cholesterol Level 142 MG/DL (< 200) LDL Cholesterol 97 mg/dL (<100) HDL Cholesterol 33 MG/DL (40-60) L Cholesterol/HDL Ratio 4.3 (3.3-4.4) Thyroid Stimulating Hormone (TSH) 3.256 uiU/mL (0.358-3.740) Height (Feet): 5 Height (Inches): 10.00 Weight (Pounds): 138 Medications Current Medications Medications (Trade) Dose Ordered Sig/Elyssa Route PRN Reason Start Time Stop Time Status Last Admin Dose Admin Acetaminophen (Tylenol) 650 mg Q4H PRN ORAL fever 01/28/18 22:15 02/27/18 22:14 01/28/18 22:46 Al Hydroxide/Mg Hydroxide (Mylanta II) 30 ml Q6H PRN ORAL dyspepsia 01/28/18 22:15 02/27/18 22:14 Albuterol/ Ipratropium (Albuterol/ Ipratropium) 3 ml Q4H PRN HHN Shortness of Breath 01/28/18 22:15 02/02/18 22:14 Clonidine HCl (Catapres Tab) 0.1 mg Q4H PRN ORAL For High Blood Pressure 01/28/18 22:15 02/27/18 22:14 Dextrose (Dextrose 50%) STAT PRN IV Hypoglycemia 01/28/18 22:15 02/27/18 22:14 Dextrose (Dextrose 50%) 25 ml STAT PRN IV Hypoglycemia 01/28/18 22:15 02/27/18 22:14 Dextrose (Dextrose 50%) 50 ml STAT PRN IV Hypoglycemia 01/28/18 22:15 02/27/18 22:14 Gabapentin (Neurontin) 100 mg THREE TIMES A DAY ORAL 01/29/18 09:00 02/28/18 08:59 01/29/18 09:45 Heparin Sodium (Porcine) (Heparin 5000 units/ml) 5,000 units EVERY 12 HOURS SUBQ 01/28/18 22:30 02/27/18 22:29 01/29/18 09:46 Insulin Aspart (NovoLOG) BEFORE MEALS AND HS SUBQ 01/29/18 06:30 02/28/18 06:29 01/29/18 06:07 Lorazepam (Ativan 2mg/ml 1ml) 0.5 mg Q4H PRN IV For Anxiety 01/28/18 22:15 02/04/18 22:14 Mirtazapine (Remeron) 7.5 mg BEDTIME ORAL 01/28/18 22:30 02/27/18 22:29 01/28/18 22:46 Morphine Sulfate (Morphine Sulfate) 1 mg Q4H PRN IVP For Pain 7-01/28/18 22:15 02/04/18 22:14 Nitroglycerin (Ntg) 0.4 mg Q5M X 3 DOSES PRN SL Prn Chest Pain 01/28/18 22:15 02/27/18 22:14 Olanzapine (ZyPREXA) 2.5 mg QHS ORAL 01/28/18 22:30 02/27/18 22:29 01/28/18 22:45 Ondansetron HCl (Zofran) 4 mg Q6H PRN IVP Nausea & Vomiting 01/28/18 22:15 02/27/18 22:14 Polyethylene Glycol (Miralax) 17 gm HSPRN PRN ORAL Constipation 01/28/18 22:15 02/27/18 22:14 Temazepam (Restoril) 15 mg HSPRN PRN ORAL Insomnia 01/28/18 22:15 02/04/18 22:14 Assessment/Plan Assessment/Plan Schizophrenia zyprexa provided ro/Britney Broussard MD Jan 29, 2018 14:18
--- NOTE | 2018-01-29 14:41 | Cardiology Report ---
APPROVED REPORT EXAM: Two-dimensional and M-mode echocardiogram with Doppler and color Doppler. INDICATION LV function M-Mode DIMENSIONS IVSd1.5 (0.7-1.1cm)Left Atrium (MM)2.9 (1.6-4.0cm) LVDd4.2 (3.5-5.6cm)Aortic Root4.0 (2.0-3.7cm) PWd1.0 (0.7-1.1cm)Aortic Cusp Exc.1.5 (1.5-2.0cm) LVDs2.5 (2.5-4.0cm) PWs1.6 cm Other Information Technically limited study due to pts request to terminate test early. Normal left ventricular chamber size. Basal septal and anterior mild hypokinesis. All other remaining segments seem to have normal wall motion to extent visualized. Left ventricular ejection fraction estimated to be 45-50 %. Study quality precludes accurate assessment of regional wall motion. No evidence of left ventricular hypertrophy. No evidence of pericardial effusion. All other cardiac chamber sizes are within normal limits. Focal aortic valve sclerosis with adequate cusp excursion. Thickened mitral valve leaflets with normal excursion. Mitral annulus and aortic root calcification. Pulmonic valve not well visualized. Normal tricuspid valve structure. Subcostal views not obtained. A color flow and spectral Doppler study was performed and revealed: Trace aortic regurgitation. Trace mitral regurgitation. Trace tricuspid regurgitation. Tricuspid systolic velocities suggests peak right ventricular systolic pressure of 22 mmHg.
[2018-01-29] MEDS ORDERED: LORazepam Inj 2mg/ml 1ml IV SCH (15:00)
--- NOTE | 2018-01-29 15:36 | Cardiology Report ---
APPROVED REPORT EKG Measurement Heart [id number] ID [id number] Normal sinus rhythm Normal ECG
--- NOTE | 2018-01-29 15:41 | Consultation ---
History of Present Illness General Date patient seen: Jan 29, 2018 Time patient seen: 15:35 Chief Complaint: Syncope Present Illness HPI 62 year old male with DM, depression, DVT presents from rehab with syncope, and confusion and the patient with multiple syncopal episodes. He was found to have elevated sugar. Vitals stable, Ct head negative, CXR clear, Echo with mild systolic dysfunction. Allergies: Coded Allergies: No Known Allergies (Unverified , 04/12/17) Medication History Scheduled Gabapentin* (Gabapentin*), 100 MG ORAL THREE TIMES A DAY, (Reported) Insulin Glargine (Lantus), 20 SUBQ BEDTIME, (Reported) Insulin Glargine (Lantus), 30 SUBQ DAILY, (Reported) Metformin Hcl* (Metformin Hcl*), 500 MG ORAL TWICE A DAY, (Reported) Mirtazapine* (Remeron*), 7.5 MG ORAL BEDTIME, (Reported) Multivitamin With Minerals (Multivitamins With Minerals*), 1 TAB ORAL DAILY, ( Reported) Olanzapine* (Zyprexa*), 2.5 MG ORAL QHS, (Reported) Scheduled PRN Acetaminophen* (Acetaminophen 325MG Tablet*), 325 MG ORAL Q6H PRN for Fever/ Headache/Mild Pain, (Reported) Diphenhydramine Hcl* (Benadryl*), 25 MG ORAL Q4HR PRN for Itching, (Reported) Glucagon,Human Recombinant (Glucagen), 1 MG IJ DAILY PRN for Hypoglycemia, ( Reported) Hydrocodone Bit/Acetaminophen 5-325* ([place] 5-325*), 1 TAB ORAL Q12HR PRN for Severe Pain (Pain Scale 7-10), (Reported) Ibuprofen* (Motrin*), 400 MG ORAL Q6HR PRN for Mild Pain (Pain Scale 1-3), ( Reported) Magnesium Hydroxide* (Milk Of Magnesia*), 30 ML ORAL DAILY PRN for Constipation, (Reported) Tramadol Hcl* (Ultram*), 50 MG ORAL Q12 PRN for Moderate Pain (Pain Scale 4-6), (Reported) Discontinued Medications Acetaminophen* (Acetaminophen*), 325 MG ORAL Q6H PRN for Mild Pain/Temp > 100.5, (Reported) Discontinued Reason: Prescription changed Amoxicillin (Amoxicillin), 500 MG ORAL TID, (Reported) Discontinued Reason: Therapy completed Bacitracin (Bacitracin), 1 APPLIC TOPIC BID Discontinued Reason: Therapy completed Multivitamins* (Multivitamins*), 1 TAB ORAL DAILY, (Reported) Discontinued Reason: Prescription changed Olanzapine* (Zyprexa*), 5 MG ORAL DAILY, (Reported) Discontinued Reason: Prescription changed Patient History Healthcare decision maker Resuscitation status Full Code Advanced Directive on File Review of Systems Constitutional: Reports: no symptoms Eye: Reports: no symptoms ENT: Reports: no symptoms Respiratory: Reports: no symptoms Cardiovascular: Reports: no symptoms Gastrointestinal: Reports: no symptoms Genitourinary: Reports: no symptoms Musculoskeletal: Reports: no symptoms Skin: Reports: no symptoms Psychiatric: Reports: no symptoms Neurological: Reports: syncope Endocrine: Reports: no symptoms Hematologic/Lymphatic: Reports: no symptoms Physical Exam General Appearance: no apparent distress, alert Lines, tubes and drains: peripheral HEENT: normocephalic Neck: normal alignment Respiratory/Chest: chest wall non-tender Cardiovascular/Chest: normal peripheral pulses Abdomen: normal bowel sounds, non tender Extremities: normal range of motion Skin Exam: normal pigmentation 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 Last 24 Hour Vital Signs Date Time Temp Pulse Resp B/P (MAP) Pulse Ox O2 Delivery O2 Flow Rate FiO2 01/29/18 12:00 69 01/29/18 12:00 97.8 73 16 97/61 (73) 97 97.8 01/29/18 09:00 Room Air 01/29/18 08:00 74 01/29/18 08:00 97.9 74 17 94/59 (71) 97 97.9 01/29/18 07:21 72 16 Room Air 21 01/29/18 04:00 69 01/29/18 04:00 98.4 71 20 135/86 (102) 100 98.4 01/29/18 00:00 72 01/29/18 00:00 97.3 72 20 128/81 (97) 97 97.3 01/28/18 21:15 Room Air 01/28/18 21:15 97.6 73 20 132/82 (99) 99 97.6 01/28/18 21:06 138/89 01/28/18 19:56 98.1 73 16 102/59 93 Room Air 98.1 01/28/18 18:15 73 16 98/81 93 Room Air 01/28/18 16:34 98.1 83 15 96/59 99 Room Air 98.1 01/28/18 16:20 98.1 86 16 91/59 96 Room Air 98.1 Intake and Output 01/28/18 01/29/18 19:00 07:00 Intake Total 1000 ml Balance 1000 ml Intake Oral 0 ml IV Total 1000 ml Laboratory Tests Test 01/28/18 16:35 01/29/18 06:29 White Blood Count 11.1 K/UL (4.8-10.8) H 9.1 K/UL (4.8-10.8) Red Blood Count 4.42 M/UL (4.70-6.10) L 4.27 M/UL (4.70-6.10) L Hemoglobin 13.1 G/DL (14.2-18.0) L 12.7 G/DL (14.2-18.0) L Hematocrit 38.3 % (42.0-52.0) L 37.1 % (42.0-52.0) L Mean Corpuscular Volume 87 FL (80-99) 87 FL (80-99) Mean Corpuscular Hemoglobin 29.7 PG (27.0-31.0) 29.8 PG (27.0-31.0) Mean Corpuscular Hemoglobin Concent 34.3 G/DL (32.0-36.0) 34.3 G/DL (32.0-36.0) Red Cell Distribution Width 12.0 % (11.6-14.8) 11.6 % (11.6-14.8) Platelet Count 244 K/UL (150-450) 200 K/UL (150-450) Mean Platelet Volume 7.8 FL (6.5-10.1) 7.9 FL (6.5-10.1) Neutrophils (%) (Auto) 61.7 % (45.0-75.0) 50.9 % (45.0-75.0) Lymphocytes (%) (Auto) 23.8 % (20.0-45.0) 29.6 % (20.0-45.0) Monocytes (%) (Auto) 6.1 % (1.0-10.0) 8.4 % (1.0-10.0) Eosinophils (%) (Auto) 7.1 % (0.0-3.0) H 9.8 % (0.0-3.0) H Basophils (%) (Auto) 1.3 % (0.0-2.0) 1.2 % (0.0-2.0) Prothrombin Time 11.7 SEC (9.30-11.50) H 11.4 SEC (9.30-11.50) Prothromb Time International Ratio 1.1 (0.9-1.1) 1.1 (0.9-1.1) Activated Partial Thromboplast Time 27 SEC (23-33) 26 SEC (23-33) Sodium Level 137 MMOL/L (136-145) 137 MMOL/L (136-145) Potassium Level 4.3 MMOL/L (3.5-5.1) 4.1 MMOL/L (3.5-5.1) Chloride Level 100 MMOL/L (98-107) 103 MMOL/L (98-107) Carbon Dioxide Level 28 MMOL/L (21-32) 26 MMOL/L (21-32) Anion Gap 9 mmol/L (5-15) 9 mmol/L (5-15) Blood Urea Nitrogen 13 mg/dL (7-18) 14 mg/dL (7-18) Creatinine 0.8 MG/DL (0.55-1.30) 0.5 MG/DL (0.55-1.30) L Estimat Glomerular Filtration Rate > 60 mL/min (>60) > 60 mL/min (>60) Glucose Level 298 MG/DL (74-106) H 231 MG/DL (74-106) H Calcium Level 9.8 MG/DL (8.5-10.1) 9.2 MG/DL (8.5-10.1) Total Bilirubin 0.4 MG/DL (0.2-1.0) 0.2 MG/DL (0.2-1.0) Aspartate Amino Transf (AST/SGOT) 16 U/L (15-37) 15 U/L (15-37) Alanine Aminotransferase (ALT/SGPT) 42 U/L (12-78) 36 U/L (12-78) Alkaline Phosphatase 98 U/L (46-116) 90 U/L (46-116) Total Creatine Kinase 62 U/L (26-308) Creatine Kinase MB 1.3 NG/ML (0.0-3.6) Creatine Kinase MB Relative Index 2.0 Troponin I 0.000 ng/mL (0.000-0.056) Total Protein 7.6 G/DL (6.4-8.2) 6.6 G/DL (6.4-8.2) Albumin 3.8 G/DL (3.4-5.0) 3.2 G/DL (3.4-5.0) L Globulin 3.8 g/dL 3.4 g/dL Albumin/Globulin Ratio 1.0 (1.0-2.7) 0.9 (1.0-2.7) L Triglycerides Level 101 MG/DL (30-150) Cholesterol Level 142 MG/DL (< 200) LDL Cholesterol 97 mg/dL (<100) HDL Cholesterol 33 MG/DL (40-60) L Cholesterol/HDL Ratio 4.3 (3.3-4.4) Thyroid Stimulating Hormone (TSH) 3.256 uiU/mL (0.358-3.740) Height (Feet): 5 Height (Inches): 10.00 Weight (Pounds): 138 Medications Current Medications Medications (Trade) Dose Ordered Sig/Elyssa Route PRN Reason Start Time Stop Time Status Last Admin Dose Admin Acetaminophen (Tylenol) 650 mg Q4H PRN ORAL fever 01/28/18 22:15 02/27/18 22:14 01/28/18 22:46 Al Hydroxide/Mg Hydroxide (Mylanta II) 30 ml Q6H PRN ORAL dyspepsia 01/28/18 22:15 02/27/18 22:14 Albuterol/ Ipratropium (Albuterol/ Ipratropium) 3 ml Q4H PRN HHN Shortness of Breath 01/28/18 22:15 02/02/18 22:14 Clonidine HCl (Catapres Tab) 0.1 mg Q4H PRN ORAL For High Blood Pressure 01/28/18 22:15 02/27/18 22:14 Dextrose (Dextrose 50%) STAT PRN IV Hypoglycemia 01/28/18 22:15 02/27/18 22:14 Dextrose (Dextrose 50%) 25 ml STAT PRN IV Hypoglycemia 01/28/18 22:15 02/27/18 22:14 Dextrose (Dextrose 50%) 50 ml STAT PRN IV Hypoglycemia 01/28/18 22:15 02/27/18 22:14 Gabapentin (Neurontin) 100 mg THREE TIMES A DAY ORAL 01/29/18 09:00 02/28/18 08:59 01/29/18 09:45 Heparin Sodium (Porcine) (Heparin 5000 units/ml) 5,000 units EVERY 12 HOURS SUBQ 01/28/18 22:30 02/27/18 22:29 01/29/18 09:46 Insulin Aspart (NovoLOG) BEFORE MEALS AND HS SUBQ 01/29/18 06:30 02/28/18 06:29 01/29/18 06:07 Lorazepam (Ativan 2mg/ml 1ml) 0.5 mg Q4H PRN IV For Anxiety 01/28/18 22:15 02/04/18 22:14 Lorazepam (Ativan 2mg/ml 1ml) 2 mg ONCE IV 01/29/18 15:00 01/29/18 16:00 01/29/18 15:01 Mirtazapine (Remeron) 7.5 mg BEDTIME ORAL 01/28/18 22:30 02/27/18 22:29 01/28/18 22:46 Morphine Sulfate (Morphine Sulfate) 1 mg Q4H PRN IVP For Pain 701/28/18 22:15 02/04/18 22:14 Nitroglycerin (Ntg) 0.4 mg Q5M X 3 DOSES PRN SL Prn Chest Pain 01/28/18 22:15 02/27/18 22:14 Olanzapine (ZyPREXA) 2.5 mg QHS ORAL 01/28/18 22:30 02/27/18 22:29 01/28/18 22:45 Ondansetron HCl (Zofran) 4 mg Q6H PRN IVP Nausea & Vomiting 01/28/18 22:15 02/27/18 22:14 Polyethylene Glycol (Miralax) 17 gm HSPRN PRN ORAL Constipation 01/28/18 22:15 02/27/18 22:14 Temazepam (Restoril) 15 mg HSPRN PRN ORAL Insomnia 01/28/18 22:15 02/04/18 22:14 Assessment/Plan Status: stable Assessment/Plan Assessment Diabetes DVT Depression Hyperglycemia Syncope Confusion Plan Echo reviewed - no findings to suggest cardiac syncope -Check carotid US -Orthostatics -Cultures -IV fluids -Glucose control -Etiology may be from autonomic dysfunction from longstanding poorly controlled diabetes -May benefit from compression stockings and isometric exercises. -Syncope does not appear to be from an aural/balance etiology, CT head negative. -Telemetry to monitor for arrhythmias Davy Smyth M.D. Jan 29, 2018 15:40
[2018-01-29 16:00] VITALS: BP 93/60
--- NOTE | 2018-01-29 16:14 | Diagnostic Imaging Report ---
Indication: Syncope Technique: sagittal T1 fast spin echo, axial T1 FLAIR, axial T2 FLAIR, axial T2 FS PROPELLER, axial T2* GRE, axial diffusion weighted images. ADC and exponential ADC maps generated Comparison: CT brain 01/28/2018 Findings: Equivocal tiny focus of high diffusion signal is seen on the lateral aspect of the left thalamus. No associated T2 abnormality. No other foci of restricted diffusion to suggest acute infarct demonstrated. No acute hemorrhage or edema. No mass effect nor midline shift. There is age-related enlargement of the ventricles and extra-axial CSF spaces. Old lacunar infarct is seen in the right noble radiata, in retrospect also evident on the earlier CT scan. The vascular flow voids are preserved.. Visualized orbits and sinuses are unremarkable. Impression: Very questionable focus of increased diffusion signal in the left thalamus; suspect artifactual but could represent a tiny acute lacunar infarct. Dr. Church notified at the time of interpretation No other evidence of acute infarct. Negative for acute intracranial bleed or mass effect Age-related volume loss Tiny old right noble radiata lacunar infarct.
--- NOTE | 2018-01-29 17:00 | History and Physical Report ---
DATE OF ADMISSION: 01/28/2018 CHIEF COMPLAINT: The patient is a 62-year-old white male, who presents with a chief complaint of syncopal episode. HISTORY OF PRESENT ILLNESS: The patient is a resident of [facility]. According to staff at [facility], the patient experienced several episodes of syncope episode yesterday, 01/28/2018. The patient was transferred to [facility]. The patient is admitted for syncopal episode to rule out acute coronary syndrome versus acute cerebrovascular accident. PAST MEDICAL HISTORY: Significant for, 1. Type 2 diabetes. 2. Hypertension. 3. Major depression. 4. History of deep venous thrombosis of the lower extremity. PAST SURGICAL HISTORY: Unknown. CURRENT MEDICATIONS: From [facility] on [facility], 1. Tylenol 650 mg p.o. q.4 hours p.r.n. 2. Lispro sliding scale. 3. Glargine insulin 20 units subcutaneously at bedtime and 30 units subcutaneously every morning. 4. Gabapentin 100 mg p.o. 3 times daily. 5. Ibuprofen 400 mg p.o. q.6 hours. 6. Metformin 500 mg p.o. twice daily. 7. Multivitamin p.o. daily. 8. Zachary 5/325 mg one tablet p.o. q.12 hours p.r.n. 9. Remeron 7.5 mg p.o. at bedtime. 10. Tramadol 50 mg p.o. twice daily. 11. Zyprexa 2.5 mg p.o. at bedtime. ALLERGIES: No known drug allergies. SOCIAL HISTORY: The patient denies tobacco or alcohol use. REVIEW OF SYSTEMS: Unable to assess secondary to the patient's mental status. PHYSICAL EXAMINATION: VITAL SIGNS: Temperature 98.1, respirations 16, pulse 73, blood pressure 102/59. GENERAL: The patient is a well-developed and well-nourished white male, who is drowsy, however, arousable. HEENT: Eyes, pupils equal and responsive to light and accommodation. Extraocular movements are intact. NECK: Supple without lymphadenopathy. CHEST: Lungs are clear to auscultation bilaterally without wheezes or rales. CARDIOVASCULAR: Regular rhythm and rate. S1, S2 are normal without murmurs, rubs, or gallops. ABDOMEN: Soft, nontender, and nondistended. Positive bowel sounds. No hepatosplenomegaly. Currently, no rebound or guarding noted. EXTREMITIES: Negative for clubbing, cyanosis, or edema. RECTAL/GENITAL: Refused. NEUROLOGIC: Cranial nerves II through XII are grossly intact without focal deficits. Motor strength is 5/5 bilaterally. Deep tendon reflexes are 2+ plantar. LABORATORY STUDIES: WBC 11.1 hemoglobin 13.1, hematocrit 38.3, and platelets 244,000. Sodium 137, potassium 4.3, chloride 100, CO2 28, BUN 13, creatinine 0.8, and glucose 298. Troponin 0.0. A CT scan of the brain was reported as no acute intracranial bleed or mass effect. ASSESSMENT: This is a 62-year-old white male. 1. Syncopal episode. 2. Diabetes type 2. 3. Hypertension. 4. Major depression. TREATMENT: 1. Syncopal episode. A Cardiology consultation has been obtained with Dr. Leslie. Serial troponin levels will be performed. An echocardiogram is pending. A Neurology consultation has been obtained with Dr. Alen Wolf. An MRI of the brain is pending. Carotid duplex and Dopplers are pending. 2. Diabetes type 2. Continue Lantus insulin and NovoLog sliding scale as above. 3. Hypertension. the above medication. 4. Major depression. Continue Zyprexa and Remeron as above. Magdy Church M.D. DR: TIFFANY JOB#: [id number] CC:
[2018-01-29 20:00] VITALS: BP 126/76
[2018-01-29] MEDS: OLANZapine 2.5mg tab ORAL SCH (20:44)
[2018-01-30] VITALS: BP 117/73
[2018-01-30 04:00] VITALS: BP 130/72
[2018-01-30] MEDS: NovoLOG Insulin Flexpen SUBQ SCH ×4 (05:55→21:19)
[2018-01-30 06:37] LABS: EOSINOPHILS % (AUTO) 8.3 % (0.0-3.0); HEMATOCRIT 38.5 % (42.0-52.0); HEMOGLOBIN 13.1 G/DL (14.2-18.0); LYMPHOCYTES % (AUTO) 26.5 % (20.0-45.0); MEAN CORPUSCULAR VOLUME 86 FL (80-99); MONOCYTES % (AUTO) 6.2 % (1.0-10.0); PLATELET COUNT 208 K/UL (150-450); RED BLOOD COUNT 4.45 M/UL (4.70-6.10); RED CELL DISTRIBUTION WIDTH 11.3 % (11.6-14.8); WHITE BLOOD COUNT 10.2 K/UL (4.8-10.8)
[2018-01-30 06:54] LABS: ANION GAP 7 mmol/L (5-15); BLOOD UREA NITROGEN 14 mg/dL (7-18); CARBON DIOXIDE 28 MMOL/L (21-32); CHLORIDE 101 MMOL/L (98-107); CREATININE 0.6 MG/DL (0.55-1.30); SODIUM 136 MMOL/L (136-145)
[2018-01-30 08:00] VITALS: BP 98/64
[2018-01-30] MEDS: Heparin 5000 units/ml inj SUBQ SCH ×2 (08:58→21:00)
[2018-01-30] MEDS: Promethazine/Codeine 5ml UD ORAL PRN ×2 (11:51→19:31)
[2018-01-30 12:00] VITALS: BP 98/59
--- NOTE | 2018-01-30 12:41 | Diagnostic Imaging Report ---
APPROVED REPORT CPT Code: 33148 Vascular Symptoms CVA/TIA: Doppler Spectral Velocity Analysis RightLeft RIGHT SIDE: CCA - Imaging reveals no significant plaque in the common carotid artery. ICA The Doppler signal indicates the degree of stenosis is minimal (30%) in the internal carotid artery, and (20%) in the external carotid artery. VERTEBRAL - The vertebral artery is patent, without evidence of stenosis or steal. arteries. The Doppler spectral flow analysis indicates the degree of stenosis is minimal (10%) in the common carotid artery, mild (30%) in the internal carotid artery, and (30%) in the external carotid artery. VERTEBRAL- The vertebral artery is patent, without evidence of stenosis or steals.
--- NOTE | 2018-01-30 13:08 | General Progress Note ---
Assessment/Plan Assessment/Plan Schizophrenia zyprexa provided ro/st Subjective Date patient seen: Jan 30, 2018 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: Reports: anxiety, depressed, emotional problems Allergies: Coded Allergies: No Known Allergies (Unverified , 04/12/17) Objective Last 24 Hour Vital Signs Date Time Temp Pulse Resp B/P (MAP) Pulse Ox O2 Delivery O2 Flow Rate FiO2 01/30/18 12:00 72 01/30/18 12:00 97.0 78 18 98/59 (72) 95 97.0 01/30/18 09:00 Room Air 01/30/18 08:00 75 01/30/18 08:00 96.9 73 17 98/64 (75) 95 96.9 01/30/18 04:00 97.7 73 18 130/72 (91) 95 97.7 01/30/18 03:54 72 01/30/18 00:00 97.9 74 18 117/73 (88) 98 97.9 01/29/18 21:00 Room Air 01/29/18 20:01 80 01/29/18 20:00 97.0 79 18 126/76 (93) 98 97.0 01/29/18 18:45 77 16 Room Air 21 01/29/18 16:00 98.2 92 18 93/60 (71) 98 98.2 01/29/18 16:00 73 Intake and Output 01/29/18 01/30/18 19:00 07:00 Intake Total 350 ml 250 ml Output Total 602 ml 850 ml Balance -252 ml -600 ml Intake Oral 350 ml 250 ml Output Urine Total 602 ml 850 ml Stool Total 0 ml Laboratory Tests 01/30/18 05:30: White Blood Count 10.2, Red Blood Count 4.45L, Hemoglobin 13.1L, Hematocrit 38.5L, Mean Corpuscular Volume 86, Mean Corpuscular Hemoglobin 29.4, Mean Corpuscular Hemoglobin Concent 34.1, Red Cell Distribution Width 11.3L, Platelet Count 208, Mean Platelet Volume 7.9, Neutrophils (%) (Auto) 58.0, Lymphocytes (%) (Auto) 26.5, Monocytes (%) (Auto) 6.2, Eosinophils (%) (Auto) 8.3H, Basophils (%) (Auto) 1.0, Sodium Level 136, Potassium Level 4.0, Chloride Level 101, Carbon Dioxide Level 28, Anion Gap 7, Blood Urea Nitrogen 14, Creatinine 0.6, Estimat Glomerular Filtration Rate > 60, Glucose Level 238H, Hemoglobin A1c 8.8H, Calcium Level 9.0, Troponin I 0.013 Height (Feet): 5 Height (Inches): 10.00 Weight (Pounds): 138 General Appearance: no apparent distress, alert Neurologic: oriented x 3, depressed affect Britney Chaudhary MD Jan 30, 2018 13:08
--- NOTE | 2018-01-30 13:18 | Pulmonology Progress Note ---
Assessment/Plan Problems: (1) Acute encephalopathy (2) Depression (3) Psychosis (4) Diabetes Assessment/Plan all reviewed d/w psychiatry f/u neuro recommendation echo noted, EF of 45% sliding scale diabetic diet Subjective ROS Limited/Unobtainable: No Constitutional: Reports: no symptoms HEENT: Repors: no symptoms Respiratory: Reports: no symptoms Allergies: Coded Allergies: No Known Allergies (Unverified , 04/12/17) Objective Last 24 Hour Vital Signs Date Time Temp Pulse Resp B/P (MAP) Pulse Ox O2 Delivery O2 Flow Rate FiO2 01/30/18 12:00 72 01/30/18 12:00 97.0 78 18 98/59 (72) 95 97.0 01/30/18 09:00 Room Air 01/30/18 08:00 75 01/30/18 08:00 96.9 73 17 98/64 (75) 95 96.9 01/30/18 04:00 97.7 73 18 130/72 (91) 95 97.7 01/30/18 03:54 72 01/30/18 00:00 97.9 74 18 117/73 (88) 98 97.9 01/29/18 21:00 Room Air 01/29/18 20:01 80 01/29/18 20:00 97.0 79 18 126/76 (93) 98 97.0 01/29/18 18:45 77 16 Room Air 21 01/29/18 16:00 98.2 92 18 93/60 (71) 98 98.2 01/29/18 16:00 73 Intake and Output 01/29/18 01/30/18 19:00 07:00 Intake Total 350 ml 250 ml Output Total 602 ml 850 ml Balance -252 ml -600 ml Intake Oral 350 ml 250 ml Output Urine Total 602 ml 850 ml Stool Total 0 ml General Appearance: WD/WN HEENT: normocephalic, atraumatic, anicteric Respiratory/Chest: chest wall non-tender, lungs clear Abdomen: normal bowel sounds, soft, non tender Extremities: no cyanosis Skin: no rash 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 Lymphatic: no neck adenopathy Laboratory Tests 01/30/18 05:30: White Blood Count 10.2, Red Blood Count 4.45L, Hemoglobin 13.1L, Hematocrit 38.5L, Mean Corpuscular Volume 86, Mean Corpuscular Hemoglobin 29.4, Mean Corpuscular Hemoglobin Concent 34.1, Red Cell Distribution Width 11.3L, Platelet Count 208, Mean Platelet Volume 7.9, Neutrophils (%) (Auto) 58.0, Lymphocytes (%) (Auto) 26.5, Monocytes (%) (Auto) 6.2, Eosinophils (%) (Auto) 8.3H, Basophils (%) (Auto) 1.0, Sodium Level 136, Potassium Level 4.0, Chloride Level 101, Carbon Dioxide Level 28, Anion Gap 7, Blood Urea Nitrogen 14, Creatinine 0.6, Estimat Glomerular Filtration Rate > 60, Glucose Level 238H, Hemoglobin A1c 8.8H, Calcium Level 9.0, Troponin I 0.013 Current Medications Medications (Trade) Dose Ordered Sig/Elyssa Route PRN Reason Start Time Stop Time Status Last Admin Dose Admin Acetaminophen (Tylenol) 650 mg Q4H PRN ORAL fever 01/28/18 22:15 02/27/18 22:14 01/28/18 22:46 Al Hydroxide/Mg Hydroxide (Mylanta II) 30 ml Q6H PRN ORAL dyspepsia 01/28/18 22:15 02/27/18 22:14 Albuterol/ Ipratropium (Albuterol/ Ipratropium) 3 ml Q4H PRN HHN Shortness of Breath 01/28/18 22:15 02/02/18 22:14 Clonidine HCl (Catapres Tab) 0.1 mg Q4H PRN ORAL For High Blood Pressure 01/28/18 22:15 02/27/18 22:14 Dextrose (Dextrose 50%) STAT PRN IV Hypoglycemia 01/28/18 22:15 02/27/18 22:14 Dextrose (Dextrose 50%) 25 ml STAT PRN IV Hypoglycemia 01/28/18 22:15 02/27/18 22:14 Dextrose (Dextrose 50%) 50 ml STAT PRN IV Hypoglycemia 01/28/18 22:15 02/27/18 22:14 Gabapentin (Neurontin) 100 mg THREE TIMES A DAY ORAL 01/29/18 09:00 02/28/18 08:59 01/30/18 12:53 Heparin Sodium (Porcine) (Heparin 5000 units/ml) 5,000 units EVERY 12 HOURS SUBQ 01/28/18 22:30 02/27/18 22:29 01/30/18 08:58 Insulin Aspart (NovoLOG) BEFORE MEALS AND HS SUBQ 01/29/18 06:30 02/28/18 06:29 01/30/18 11:52 Lorazepam (Ativan 2mg/ml 1ml) 0.5 mg Q4H PRN IV For Anxiety 01/28/18 22:15 02/04/18 22:14 01/29/18 19:59 Mirtazapine (Remeron) 7.5 mg BEDTIME ORAL 01/28/18 22:30 02/27/18 22:29 01/29/18 20:44 Morphine Sulfate (Morphine Sulfate) 1 mg Q4H PRN IVP For Pain 01-1401/28/18 22:15 02/04/18 22:14 Nitroglycerin (Ntg) 0.4 mg Q5M X 3 DOSES PRN SL Prn Chest Pain 01/28/18 22:15 02/27/18 22:14 Olanzapine (ZyPREXA) 2.5 mg QHS ORAL 01/28/18 22:30 02/27/18 22:29 01/29/18 20:44 Ondansetron HCl (Zofran) 4 mg Q6H PRN IVP Nausea & Vomiting 01/28/18 22:15 02/27/18 22:14 Polyethylene Glycol (Miralax) 17 gm HSPRN PRN ORAL Constipation 01/28/18 22:15 02/27/18 22:14 Promethazine HCl/ Codeine (Phenergan with Codeine) 5 ml Q6H PRN ORAL For Cough 01/29/18 21:30 02/28/18 21:29 01/30/18 11:51 Temazepam (Restoril) 15 mg HSPRN PRN ORAL Insomnia 01/28/18 22:15 02/04/18 22:14 Dontae Joshua MD Jan 30, 2018 13:18
--- NOTE | 2018-01-30 15:59 | Internal Med Progress Note ---
Subjective Date of Service: Jan 30, 2018 Physician Name Magdy Church Attending Physician Jose Michele MD Current Medications Medications (Trade) Dose Ordered Sig/Elyssa Route PRN Reason Start Time Stop Time Status Last Admin Dose Admin Acetaminophen (Tylenol) 650 mg Q4H PRN ORAL fever 01/28/18 22:15 02/27/18 22:14 01/28/18 22:46 Al Hydroxide/Mg Hydroxide (Mylanta II) 30 ml Q6H PRN ORAL dyspepsia 01/28/18 22:15 02/27/18 22:14 Albuterol/ Ipratropium (Albuterol/ Ipratropium) 3 ml Q4H PRN HHN Shortness of Breath 01/28/18 22:15 02/02/18 22:14 Clonidine HCl (Catapres Tab) 0.1 mg Q4H PRN ORAL For High Blood Pressure 01/28/18 22:15 02/27/18 22:14 Dextrose (Dextrose 50%) STAT PRN IV Hypoglycemia 01/28/18 22:15 02/27/18 22:14 Dextrose (Dextrose 50%) 25 ml STAT PRN IV Hypoglycemia 01/28/18 22:15 02/27/18 22:14 Dextrose (Dextrose 50%) 50 ml STAT PRN IV Hypoglycemia 01/28/18 22:15 02/27/18 22:14 Gabapentin (Neurontin) 100 mg THREE TIMES A DAY ORAL 01/29/18 09:00 02/28/18 08:59 01/30/18 12:53 Heparin Sodium (Porcine) (Heparin 5000 units/ml) 5,000 units EVERY 12 HOURS SUBQ 01/28/18 22:30 02/27/18 22:29 01/30/18 08:58 Insulin Aspart (NovoLOG) BEFORE MEALS AND HS SUBQ 01/29/18 06:30 02/28/18 06:29 01/30/18 11:52 Lorazepam (Ativan 2mg/ml 1ml) 0.5 mg Q4H PRN IV For Anxiety 01/28/18 22:15 02/04/18 22:14 01/29/18 19:59 Mirtazapine (Remeron) 7.5 mg BEDTIME ORAL 01/28/18 22:30 02/27/18 22:29 01/29/18 20:44 Morphine Sulfate (Morphine Sulfate) 1 mg Q4H PRN IVP For Pain 7-10 01/28/18 22:15 02/04/18 22:14 Nitroglycerin (Ntg) 0.4 mg Q5M X 3 DOSES PRN SL Prn Chest Pain 01/28/18 22:15 02/27/18 22:14 Olanzapine (ZyPREXA) 2.5 mg QHS ORAL 01/28/18 22:30 02/27/18 22:29 01/29/18 20:44 Ondansetron HCl (Zofran) 4 mg Q6H PRN IVP Nausea & Vomiting 01/28/18 22:15 02/27/18 22:14 Polyethylene Glycol (Miralax) 17 gm HSPRN PRN ORAL Constipation 01/28/18 22:15 02/27/18 22:14 Promethazine HCl/ Codeine (Phenergan with Codeine) 5 ml Q6H PRN ORAL For Cough 01/29/18 21:30 02/28/18 21:29 01/30/18 11:51 Temazepam (Restoril) 15 mg HSPRN PRN ORAL Insomnia 01/28/18 22:15 02/04/18 22:14 Allergies: Coded Allergies: No Known Allergies (Unverified , 04/12/17) ROS Limited/Unobtainable: No Constitutional: Reports: no symptoms HEENT: Reports: no symptoms Cardiovascular: Reports: no symptoms Respiratory: Reports: no symptoms Gastrointestinal/Abdominal: Reports: no symptoms Genitourinary: Reports: no symptoms 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: Reports: no symptoms Subjective 62 YO M admitted with chief complaint of syncope. Now left acute CVA. Cover for Int Shaun-Dr Michele. Objective Last Vital Signs Date Time Temp Pulse Resp B/P (MAP) Pulse Ox O2 Delivery O2 Flow Rate FiO2 01/30/18 12:00 72 01/30/18 12:00 97.0 18 98/59 (72) 95 97.0 01/30/18 09:00 Room Air 01/29/18 18:45 21 General Appearance: WD/WN, no apparent distress, alert EENT: PERRL/EOMI, normal ENT inspection, TMs normal Neck: non-tender, normal alignment, supple, normal inspection Cardiovascular: normal peripheral pulses, normal rate, regular rhythm, no gallop/murmur, no JVD Respiratory/Chest: chest wall non-tender, lungs clear, normal breath sounds, no respiratory distress, no accessory muscle use Abdomen: normal bowel sounds, non tender, soft, no organomegaly, no mass Extremities: normal range of motion, non-tender Neurologic: lehr cutter II-XII grossly normal, no motor/sensory deficits Skin: normal pigmentation, warm/dry Laboratory Tests Test 01/30/18 05:30 White Blood Count 10.2 K/UL (4.8-10.8) Red Blood Count 4.45 M/UL (4.70-6.10) L Hemoglobin 13.1 G/DL (14.2-18.0) L Hematocrit 38.5 % (42.0-52.0) L Mean Corpuscular Volume 86 FL (80-99) Mean Corpuscular Hemoglobin 29.4 PG (27.0-31.0) Mean Corpuscular Hemoglobin Concent 34.1 G/DL (32.0-36.0) Red Cell Distribution Width 11.3 % (11.6-14.8) L Platelet Count 208 K/UL (150-450) Mean Platelet Volume 7.9 FL (6.5-10.1) Neutrophils (%) (Auto) 58.0 % (45.0-75.0) Lymphocytes (%) (Auto) 26.5 % (20.0-45.0) Monocytes (%) (Auto) 6.2 % (1.0-10.0) Eosinophils (%) (Auto) 8.3 % (0.0-3.0) H Basophils (%) (Auto) 1.0 % (0.0-2.0) Sodium Level 136 MMOL/L (136-145) Potassium Level 4.0 MMOL/L (3.5-5.1) Chloride Level 101 MMOL/L (98-107) Carbon Dioxide Level 28 MMOL/L (21-32) Anion Gap 7 mmol/L (5-15) Blood Urea Nitrogen 14 mg/dL (7-18) Creatinine 0.6 MG/DL (0.55-1.30) Estimat Glomerular Filtration Rate > 60 mL/min (>60) Glucose Level 238 MG/DL (74-106) H Hemoglobin A1c 8.8 % (4.3-6.0) H Calcium Level 9.0 MG/DL (8.5-10.1) Troponin I 0.013 ng/mL (0.000-0.056) Intake and Output 01/29/18 01/30/18 19:00 07:00 Intake Total 350 ml 250 ml Output Total 602 ml 850 ml Balance -252 ml -600 ml Intake Oral 350 ml 250 ml Output Urine Total 602 ml 850 ml Stool Total 0 ml Assessment/Plan Problem List: (1) Diabetes mellitus type II, uncontrolled Assessment & Plan: Continue novolog sliding scale. (2) HTN (hypertension) Assessment & Plan: Continue prn clonidine (3) Depression, major Assessment & Plan: Continue remeron and zyprexa (4) Syncope (5) Cerebral vascular accident Assessment & Plan: See MRI=acute left thalamic CVA. Await neurology consult. Status: not improved Magdy Church MD Jan 30, 2018 15:59
[2018-01-30 16:00] VITALS: BP 94/63
--- NOTE | 2018-01-30 17:45 | Cardiology Progress Note ---
Assessment/Plan Status: stable Assessment/Plan Assessment Diabetes DVT Depression Hyperglycemia Syncope Confusion Plan Echo reviewed - no findings to suggest cardiac syncope -Check carotid US -Orthostatics -Cultures -IV fluids -Glucose control HgA1c 8.8 -Etiology may be from autonomic dysfunction from longstanding poorly controlled diabetes -May benefit from compression stockings and isometric exercises. -Syncope does not appear to be from an aural/balance etiology, CT head negative. -Telemetry to monitor for arrhythmias -EEG, Neuro consult -MRI reviewed, possible small infarct -Add plavix Subjective Cardiovascular: Reports: no symptoms Respiratory: Reports: no symptoms Gastrointestinal/Abdominal: Reports: no symptoms Genitourinary: Reports: no symptoms Subjective No acute events, no distress, vitals stable. Objective Last 24 Hour Vital Signs Date Time Temp Pulse Resp B/P (MAP) Pulse Ox O2 Delivery O2 Flow Rate FiO2 01/30/18 16:00 98.1 74 18 94/63 (73) 97 98.1 01/30/18 16:00 72 01/30/18 12:00 72 01/30/18 12:00 97.0 78 18 98/59 (72) 95 97.0 01/30/18 09:00 Room Air 01/30/18 08:00 75 01/30/18 08:00 96.9 73 17 98/64 (75) 95 96.9 01/30/18 04:00 97.7 73 18 130/72 (91) 95 97.7 01/30/18 03:54 72 01/30/18 00:00 97.9 74 18 117/73 (88) 98 97.9 01/29/18 21:00 Room Air 01/29/18 20:01 80 01/29/18 20:00 97.0 79 18 126/76 (93) 98 97.0 01/29/18 18:45 77 16 Room Air 21 General Appearance: no apparent distress EENT: normal ENT inspection Neck: normal alignment Rhythm: SB Cardiovascular: normal peripheral pulses, normal rate, regular rhythm, regularly irregular Respiratory/Chest: lungs clear, no respiratory distress Abdomen: non tender, soft, no organomegaly, no mass Extremities: normal range of motion Neurologic: no motor/sensory deficits Intake and Output 01/29/18 01/30/18 19:00 07:00 Intake Total 350 ml 250 ml Output Total 602 ml 850 ml Balance -252 ml -600 ml Intake Oral 350 ml 250 ml Output Urine Total 602 ml 850 ml Stool Total 0 ml Laboratory Tests Test 01/30/18 05:30 White Blood Count 10.2 K/UL (4.8-10.8) Red Blood Count 4.45 M/UL (4.70-6.10) L Hemoglobin 13.1 G/DL (14.2-18.0) L Hematocrit 38.5 % (42.0-52.0) L Mean Corpuscular Volume 86 FL (80-99) Mean Corpuscular Hemoglobin 29.4 PG (27.0-31.0) Mean Corpuscular Hemoglobin Concent 34.1 G/DL (32.0-36.0) Red Cell Distribution Width 11.3 % (11.6-14.8) L Platelet Count 208 K/UL (150-450) Mean Platelet Volume 7.9 FL (6.5-10.1) Neutrophils (%) (Auto) 58.0 % (45.0-75.0) Lymphocytes (%) (Auto) 26.5 % (20.0-45.0) Monocytes (%) (Auto) 6.2 % (1.0-10.0) Eosinophils (%) (Auto) 8.3 % (0.0-3.0) H Basophils (%) (Auto) 1.0 % (0.0-2.0) Sodium Level 136 MMOL/L (136-145) Potassium Level 4.0 MMOL/L (3.5-5.1) Chloride Level 101 MMOL/L (98-107) Carbon Dioxide Level 28 MMOL/L (21-32) Anion Gap 7 mmol/L (5-15) Blood Urea Nitrogen 14 mg/dL (7-18) Creatinine 0.6 MG/DL (0.55-1.30) Estimat Glomerular Filtration Rate > 60 mL/min (>60) Glucose Level 238 MG/DL (74-106) H Hemoglobin A1c 8.8 % (4.3-6.0) H Calcium Level 9.0 MG/DL (8.5-10.1) Troponin I 0.013 ng/mL (0.000-0.056) Davy Smyth M.D. Jan 30, 2018 17:45
[2018-01-30 20:00] VITALS: BP 110/66
[2018-01-30] MEDS: OLANZapine 2.5mg tab ORAL SCH (20:59)
--- NOTE | 2018-01-30 23:30 | Consultation ---
DATE OF CONSULTATION: 01/30/2018 NOTE: POOR AUDIO HEMATOLOGY/ONCOLOGY CONSULTATION CONSULTING PHYSICIAN: Jonathan Morrow M.D. REASON FOR CONSULTATION: Evaluation of DVT of lower extremity duplex performed and compared to yesterday. IDENTIFICATION DATA: The patient is a pleasant 62-year-old male with past medical history significant for DVT, , depression, diabetes mellitus, noted to have an elevated blood sugar upon admission CAT scan of the brain was negative. Chest x-ray is clear. Echo shows mild dysfunction, admitted under the care of Dr. Michele. MRI of the brain reviewed and Hematology was consulted for further evaluation and treatment for underlying disorder with DVT. PAST MEDICAL HISTORY: DVT, hypertension, major depressive disorder, and type 2 diabetes mellitus. PAST SURGICAL HISTORY: None known. CURRENT MEDICATIONS: Tylenol, lispro insulin, Neurontin, ibuprofen, . ALLERGIES: No known drug allergies. SOCIAL HISTORY: No alcohol or tobacco use. No intravenous drug use. FAMILY HISTORY: Noncontributory. REVIEW OF SYSTEMS: Difficult to obtain. PHYSICAL EXAMINATION: VITAL SIGNS: Reviewed. GENERAL: No acute distress. LUNGS: Decreased breath sounds. Some crackles noted. CARDIOVASCULAR: Regular rate. No S3 or S4. ABDOMEN: Soft, nontender, and nondistended. EXTREMITIES: No cyanosis, swelling, or edema noted. DTR 2+. LABORATORY AND DIAGNOSTIC DATA: WBC 11.1, hemoglobin 13.1, hematocrit 38, and platelet count 355,000. Troponin 0. Imaging, CT scan of brain reviewed, no evidence of acute infarction noted. ASSESSMENT AND RECOMMENDATIONS: 1. Deep venous thrombosis. The patient with a history of deep venous thrombosis before. Imaging has been reviewed. No evidence of deep venous thrombosis at this time. anticoagulation. 2. Anemia due to underlying chronic disease. Continue to closely monitor. 3. Diabetes mellitus. A1c goal less than 7. Results of A1c are pending. 4. Hyperlipidemia, . 5. Protein-calorie malnutrition. 6. Leukocytosis, likely secondary to reactive process, seems to be resolved. 7. Syncopal episode. Cardiology and Neurology Service consulted. 8. Hypertension. Systolic blood pressure goal less than 140. I appreciate the consultation. Jonathan Morrow M.D. DR: BRIANNA JOB#: [id number] CC:
[2018-01-31] VITALS: BP 110/88
[2018-01-31 04:00] VITALS: BP 96/75
[2018-01-31] MEDS: NovoLOG Insulin Flexpen SUBQ SCH ×4 (06:08→22:29)
[2018-01-31 08:00] VITALS: BP 99/67
[2018-01-31 08:00] LABS: BASOPHILS % (AUTO) 1.1 % (0.0-2.0); EOSINOPHILS % (AUTO) 9.6 % (0.0-3.0); HEMOGLOBIN 13.4 G/DL (14.2-18.0); LYMPHOCYTES % (AUTO) 27.8 % (20.0-45.0); MEAN CORPUSCULAR VOLUME 87 FL (80-99); MONOCYTES % (AUTO) 8.1 % (1.0-10.0); NEUTROPHILS % (AUTO) 53.3 % (45.0-75.0); PLATELET COUNT 211 K/UL (150-450); RED BLOOD COUNT 4.51 M/UL (4.70-6.10); RED CELL DISTRIBUTION WIDTH 11.7 % (11.6-14.8); WHITE BLOOD COUNT 9.4 K/UL (4.8-10.8)
[2018-01-31 08:11] LABS: ANION GAP 6 mmol/L (5-15); BLOOD UREA NITROGEN 18 mg/dL (7-18); CALCIUM 9.1 MG/DL (8.5-10.1); CARBON DIOXIDE 28 MMOL/L (21-32); CHLORIDE 103 MMOL/L (98-107); CREATININE 0.6 MG/DL (0.55-1.30); POTASSIUM 4.1 MMOL/L (3.5-5.1); SODIUM 137 MMOL/L (136-145)
[2018-01-31] MEDS: Heparin 5000 units/ml inj SUBQ SCH ×2 (09:32→22:28)
[2018-01-31 12:00] VITALS: BP 101/69
--- NOTE | 2018-01-31 12:18 | General Progress Note ---
Assessment/Plan Status: unchanged Assessment/Plan Schizophrenia zyprexa provided ro/st prozac 20mg Subjective Date patient seen: Jan 31, 2018 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: Reports: anxiety, depressed Allergies: Coded Allergies: No Known Allergies (Unverified , 04/12/17) Subjective irritable somewhat uncooperative Objective Last 24 Hour Vital Signs Date Time Temp Pulse Resp B/P (MAP) Pulse Ox O2 Delivery O2 Flow Rate FiO2 01/31/18 08:10 Room Air 01/31/18 08:00 97.7 74 18 99/67 (78) 95 97.7 01/31/18 07:49 71 01/31/18 04:00 97.7 78 20 96/75 (82) 96 97.7 01/31/18 03:35 72 01/31/18 00:00 98.7 86 20 110/88 (95) 98 98.7 01/30/18 23:34 74 01/30/18 21:00 Room Air 01/30/18 20:10 72 16 99 Room Air 21 01/30/18 20:02 70 16 Room Air 21 01/30/18 20:02 70 16 95 Room Air 21 01/30/18 20:00 97.8 67 20 110/66 (81) 92 97.8 01/30/18 19:19 70 01/30/18 16:00 98.1 74 18 94/63 (73) 97 98.1 01/30/18 16:00 72 Intake and Output 01/30/18 01/31/18 19:00 07:00 Intake Total 100 ml Balance 100 ml Intake Oral 100 ml # Voids 1 3 Laboratory Tests 01/31/18 07:40: White Blood Count 9.4, Red Blood Count 4.51L, Hemoglobin 13.4L, Hematocrit 39.0L , Mean Corpuscular Volume 87, Mean Corpuscular Hemoglobin 29.8, Mean Corpuscular Hemoglobin Concent 34.4, Red Cell Distribution Width 11.7, Platelet Count 211, Mean Platelet Volume 7.2, Neutrophils (%) (Auto) 53.3, Lymphocytes (% ) (Auto) 27.8, Monocytes (%) (Auto) 8.1, Eosinophils (%) (Auto) 9.6H, Basophils (%) (Auto) 1.1, Sodium Level 137, Potassium Level 4.1, Chloride Level 103, Carbon Dioxide Level 28, Anion Gap 6, Blood Urea Nitrogen 18, Creatinine 0.6, Estimat Glomerular Filtration Rate > 60, Glucose Level 162H, Calcium Level 9.1 Height (Feet): 5 Height (Inches): 10.00 Weight (Pounds): 138 General Appearance: no apparent distress, alert Neurologic: oriented x 3, responsive, depressed affect Britney Chaudhary MD Jan 31, 2018 12:18
--- NOTE | 2018-01-31 12:30 | General Progress Note ---
Assessment/Plan Status: stable Assessment/Plan # Anemia due to underlying chronic disease. --> Currently stable, no w/u required. Hgb above 13 # Leukocytosis, likely secondary to reactive process, seems to be resolved. # Deep venous thrombosis. The patient with a history of deep venous thrombosis before. --> Imaging has been reviewed. No evidence of deep venous thrombosis at this time. # Diabetes mellitus. A1c goal less than 7. --> 01/30 A1C of 8.8 # Hyperlipidemia. # Protein-calorie malnutrition. # Syncopal episode. Cardiology and Neurology Service consulted. # Hypertension. Systolic blood pressure goal less than 140. The time the note was entered does not necessarily correspond to the time the patient was seen. Subjective Date patient seen: Jan 31, 2018 ROS Limited/Unobtainable: Yes Allergies: Coded Allergies: No Known Allergies (Unverified , 04/12/17) All Systems: reviewed and negative except above Subjective Pt awake, irritable and uncooperative. No acute events. H/H stable. Objective Last 24 Hour Vital Signs Date Time Temp Pulse Resp B/P (MAP) Pulse Ox O2 Delivery O2 Flow Rate FiO2 01/31/18 08:10 Room Air 01/31/18 08:00 97.7 74 18 99/67 (78) 95 97.7 01/31/18 07:49 71 01/31/18 04:00 97.7 78 20 96/75 (82) 96 97.7 01/31/18 03:35 72 01/31/18 00:00 98.7 86 20 110/88 (95) 98 98.7 01/30/18 23:34 74 01/30/18 21:00 Room Air 01/30/18 20:10 72 16 99 Room Air 21 01/30/18 20:02 70 16 Room Air 21 01/30/18 20:02 70 16 95 Room Air 21 01/30/18 20:00 97.8 67 20 110/66 (81) 92 97.8 01/30/18 19:19 70 01/30/18 16:00 98.1 74 18 94/63 (73) 97 98.1 01/30/18 16:00 72 Intake and Output 01/30/18 01/31/18 19:00 07:00 Intake Total 100 ml Balance 100 ml Intake Oral 100 ml # Voids 1 3 Laboratory Tests 01/31/18 07:40: White Blood Count 9.4, Red Blood Count 4.51L, Hemoglobin 13.4L, Hematocrit 39.0L , Mean Corpuscular Volume 87, Mean Corpuscular Hemoglobin 29.8, Mean Corpuscular Hemoglobin Concent 34.4, Red Cell Distribution Width 11.7, Platelet Count 211, Mean Platelet Volume 7.2, Neutrophils (%) (Auto) 53.3, Lymphocytes (% ) (Auto) 27.8, Monocytes (%) (Auto) 8.1, Eosinophils (%) (Auto) 9.6H, Basophils (%) (Auto) 1.1, Sodium Level 137, Potassium Level 4.1, Chloride Level 103, Carbon Dioxide Level 28, Anion Gap 6, Blood Urea Nitrogen 18, Creatinine 0.6, Estimat Glomerular Filtration Rate > 60, Glucose Level 162H, Calcium Level 9.1 Height (Feet): 5 Height (Inches): 10.00 Weight (Pounds): 138 General Appearance: no apparent distress, agitated EENT: PERRL/EOMI Neck: normal alignment Cardiovascular: normal peripheral pulses Respiratory/Chest: no respiratory distress Abdomen: soft Jonathan Morrow MD Jan 31, 2018 12:30
--- NOTE | 2018-01-31 14:31 | Pulmonology Progress Note ---
Assessment/Plan Problems: (1) Acute encephalopathy (2) Depression (3) Psychosis (4) Diabetes Assessment/Plan mri : acute cvaall reviewed d/w psychiatry f/u neuro recommendation echo noted, EF of 45% sliding scale diabetic diet Subjective ROS Limited/Unobtainable: No Allergies: Coded Allergies: No Known Allergies (Unverified , 04/12/17) Objective Last 24 Hour Vital Signs Date Time Temp Pulse Resp B/P (MAP) Pulse Ox O2 Delivery O2 Flow Rate FiO2 01/31/18 12:00 97.3 72 16 101/69 (80) 100 97.3 01/31/18 08:10 Room Air 01/31/18 08:00 97.7 74 18 99/67 (78) 95 97.7 01/31/18 07:49 71 01/31/18 04:00 97.7 78 20 96/75 (82) 96 97.7 01/31/18 03:35 72 01/31/18 00:00 98.7 86 20 110/88 (95) 98 98.7 01/30/18 23:34 74 01/30/18 21:00 Room Air 01/30/18 20:10 72 16 99 Room Air 21 01/30/18 20:02 70 16 Room Air 21 01/30/18 20:02 70 16 95 Room Air 21 01/30/18 20:00 97.8 67 20 110/66 (81) 92 97.8 01/30/18 19:19 70 01/30/18 16:00 98.1 74 18 94/63 (73) 97 98.1 01/30/18 16:00 72 Intake and Output 01/30/18 01/31/18 19:00 07:00 Intake Total 100 ml Balance 100 ml Intake Oral 100 ml # Voids 1 3 General Appearance: WD/WN, no acute distress HEENT: atraumatic Respiratory/Chest: lungs clear Cardiovascular: normal peripheral pulses, normal rate Abdomen: normal bowel sounds, non distended Extremities: no cyanosis Skin: no ulcers 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: 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 normal, abnormal gait Laboratory Tests 01/31/18 07:40: White Blood Count 9.4, Red Blood Count 4.51L, Hemoglobin 13.4L, Hematocrit 39.0L , Mean Corpuscular Volume 87, Mean Corpuscular Hemoglobin 29.8, Mean Corpuscular Hemoglobin Concent 34.4, Red Cell Distribution Width 11.7, Platelet Count 211, Mean Platelet Volume 7.2, Neutrophils (%) (Auto) 53.3, Lymphocytes (% ) (Auto) 27.8, Monocytes (%) (Auto) 8.1, Eosinophils (%) (Auto) 9.6H, Basophils (%) (Auto) 1.1, Sodium Level 137, Potassium Level 4.1, Chloride Level 103, Carbon Dioxide Level 28, Anion Gap 6, Blood Urea Nitrogen 18, Creatinine 0.6, Estimat Glomerular Filtration Rate > 60, Glucose Level 162H, Calcium Level 9.1 Current Medications Medications (Trade) Dose Ordered Sig/Elyssa Route PRN Reason Start Time Stop Time Status Last Admin Dose Admin Acetaminophen (Tylenol) 650 mg Q4H PRN ORAL fever 01/28/18 22:15 02/27/18 22:14 01/28/18 22:46 Al Hydroxide/Mg Hydroxide (Mylanta II) 30 ml Q6H PRN ORAL dyspepsia 01/28/18 22:15 02/27/18 22:14 Albuterol/ Ipratropium (Albuterol/ Ipratropium) 3 ml Q4H PRN HHN Shortness of Breath 01/28/18 22:15 02/02/18 22:14 01/30/18 20:02 Clonidine HCl (Catapres Tab) 0.1 mg Q4H PRN ORAL For High Blood Pressure 01/28/18 22:15 02/27/18 22:14 Clopidogrel Bisulfate (Plavix) 75 mg DAILY ORAL 01/31/18 09:00 03/02/18 08:59 01/31/18 09:31 Dextrose (Dextrose 50%) 25 ml STAT PRN IV Hypoglycemia 01/28/18 22:15 02/27/18 22:14 Dextrose (Dextrose 50%) 50 ml STAT PRN IV Hypoglycemia 01/28/18 22:15 02/27/18 22:14 Fluoxetine HCl (PROzac) 20 mg DAILY ORAL 01/31/18 12:30 03/02/18 12:29 01/31/18 12:50 Gabapentin (Neurontin) 100 mg THREE TIMES A DAY ORAL 01/29/18 09:00 02/28/18 08:59 01/31/18 12:51 Heparin Sodium (Porcine) (Heparin 5000 units/ml) 5,000 units EVERY 12 HOURS SUBQ 01/28/18 22:30 02/27/18 22:29 01/31/18 09:32 Insulin Aspart (NovoLOG) BEFORE MEALS AND HS SUBQ 01/29/18 06:30 02/28/18 06:29 01/31/18 11:35 Lorazepam (Ativan 2mg/ml 1ml) 0.5 mg Q4H PRN IV For Anxiety 01/28/18 22:15 02/04/18 22:14 01/29/18 19:59 Mirtazapine (Remeron) 7.5 mg BEDTIME ORAL 01/28/18 22:30 02/27/18 22:29 01/30/18 20:59 Morphine Sulfate (Morphine Sulfate) 1 mg Q4H PRN IVP For Pain 701/28/18 22:15 02/04/18 22:14 Nitroglycerin (Ntg) 0.4 mg Q5M X 3 DOSES PRN SL Prn Chest Pain 01/28/18 22:15 02/27/18 22:14 Olanzapine (ZyPREXA) 2.5 mg QHS ORAL 01/28/18 22:30 02/27/18 22:29 01/30/18 20:59 Ondansetron HCl (Zofran) 4 mg Q6H PRN IVP Nausea & Vomiting 01/28/18 22:15 02/27/18 22:14 Polyethylene Glycol (Miralax) 17 gm HSPRN PRN ORAL Constipation 01/28/18 22:15 02/27/18 22:14 Promethazine HCl/ Codeine (Phenergan with Codeine) 5 ml Q6H PRN ORAL For Cough 01/29/18 21:30 02/28/18 21:29 01/30/18 19:31 Temazepam (Restoril) 15 mg HSPRN PRN ORAL Insomnia 01/28/18 22:15 02/04/18 22:14 Dontae Joshua MD Jan 31, 2018 14:31
--- NOTE | 2018-01-31 15:57 | Internal Med Progress Note ---
Subjective Date of Service: Jan 31, 2018 Physician Name Magdy Church Attending Physician Jose Michele MD Current Medications Medications (Trade) Dose Ordered Sig/Elyssa Route PRN Reason Start Time Stop Time Status Last Admin Dose Admin Acetaminophen (Tylenol) 650 mg Q4H PRN ORAL fever 01/28/18 22:15 02/27/18 22:14 01/28/18 22:46 Al Hydroxide/Mg Hydroxide (Mylanta II) 30 ml Q6H PRN ORAL dyspepsia 01/28/18 22:15 02/27/18 22:14 Albuterol/ Ipratropium (Albuterol/ Ipratropium) 3 ml Q4H PRN HHN Shortness of Breath 01/28/18 22:15 02/02/18 22:14 01/30/18 20:02 Clonidine HCl (Catapres Tab) 0.1 mg Q4H PRN ORAL For High Blood Pressure 01/28/18 22:15 02/27/18 22:14 Clopidogrel Bisulfate (Plavix) 75 mg DAILY ORAL 01/31/18 09:00 03/02/18 08:59 01/31/18 09:31 Dextrose (Dextrose 50%) 25 ml STAT PRN IV Hypoglycemia 01/28/18 22:15 02/27/18 22:14 Dextrose (Dextrose 50%) 50 ml STAT PRN IV Hypoglycemia 01/28/18 22:15 02/27/18 22:14 Fluoxetine HCl (PROzac) 20 mg DAILY ORAL 01/31/18 12:30 03/02/18 12:29 01/31/18 12:50 Gabapentin (Neurontin) 100 mg THREE TIMES A DAY ORAL 01/29/18 09:00 02/28/18 08:59 01/31/18 12:51 Heparin Sodium (Porcine) (Heparin 5000 units/ml) 5,000 units EVERY 12 HOURS SUBQ 01/28/18 22:30 02/27/18 22:29 01/31/18 09:32 Insulin Aspart (NovoLOG) BEFORE MEALS AND HS SUBQ 01/29/18 06:30 02/28/18 06:29 01/31/18 11:35 Lorazepam (Ativan 2mg/ml 1ml) 0.5 mg Q4H PRN IV For Anxiety 01/28/18 22:15 02/04/18 22:14 01/29/18 19:59 Mirtazapine (Remeron) 7.5 mg BEDTIME ORAL 01/28/18 22:30 02/27/18 22:29 01/30/18 20:59 Morphine Sulfate (Morphine Sulfate) 1 mg Q4H PRN IVP For Pain 7-01/28/18 22:15 02/04/18 22:14 Nitroglycerin (Ntg) 0.4 mg Q5M X 3 DOSES PRN SL Prn Chest Pain 01/28/18 22:15 02/27/18 22:14 Olanzapine (ZyPREXA) 2.5 mg QHS ORAL 01/28/18 22:30 02/27/18 22:29 01/30/18 20:59 Ondansetron HCl (Zofran) 4 mg Q6H PRN IVP Nausea & Vomiting 01/28/18 22:15 02/27/18 22:14 Polyethylene Glycol (Miralax) 17 gm HSPRN PRN ORAL Constipation 01/28/18 22:15 02/27/18 22:14 Promethazine HCl/ Codeine (Phenergan with Codeine) 5 ml Q6H PRN ORAL For Cough 01/29/18 21:30 02/28/18 21:29 01/30/18 19:31 Temazepam (Restoril) 15 mg HSPRN PRN ORAL Insomnia 01/28/18 22:15 02/04/18 22:14 Allergies: Coded Allergies: No Known Allergies (Unverified , 04/12/17) ROS Limited/Unobtainable: No Constitutional: Reports: no symptoms HEENT: Reports: no symptoms Cardiovascular: Reports: no symptoms Respiratory: Reports: no symptoms Gastrointestinal/Abdominal: Reports: no symptoms Genitourinary: Reports: no symptoms 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: Reports: no symptoms Subjective 62 YO M admitted with chief complaint of syncope. Now left acute CVA. Cover for Int Shaun-Dr Michele. Objective Last Vital Signs Date Time Temp Pulse Resp B/P (MAP) Pulse Ox O2 Delivery O2 Flow Rate FiO2 01/31/18 12:00 97.3 72 16 101/69 (80) 100 97.3 01/31/18 08:10 Room Air 01/30/18 20:10 21 Laboratory Tests Test 01/31/18 07:40 White Blood Count 9.4 K/UL (4.8-10.8) Red Blood Count 4.51 M/UL (4.70-6.10) L Hemoglobin 13.4 G/DL (14.2-18.0) L Hematocrit 39.0 % (42.0-52.0) L Mean Corpuscular Volume 87 FL (80-99) Mean Corpuscular Hemoglobin 29.8 PG (27.0-31.0) Mean Corpuscular Hemoglobin Concent 34.4 G/DL (32.0-36.0) Red Cell Distribution Width 11.7 % (11.6-14.8) Platelet Count 211 K/UL (150-450) Mean Platelet Volume 7.2 FL (6.5-10.1) Neutrophils (%) (Auto) 53.3 % (45.0-75.0) Lymphocytes (%) (Auto) 27.8 % (20.0-45.0) Monocytes (%) (Auto) 8.1 % (1.0-10.0) Eosinophils (%) (Auto) 9.6 % (0.0-3.0) H Basophils (%) (Auto) 1.1 % (0.0-2.0) Sodium Level 137 MMOL/L (136-145) Potassium Level 4.1 MMOL/L (3.5-5.1) Chloride Level 103 MMOL/L (98-107) Carbon Dioxide Level 28 MMOL/L (21-32) Anion Gap 6 mmol/L (5-15) Blood Urea Nitrogen 18 mg/dL (7-18) Creatinine 0.6 MG/DL (0.55-1.30) Estimat Glomerular Filtration Rate > 60 mL/min (>60) Glucose Level 162 MG/DL (74-106) H Calcium Level 9.1 MG/DL (8.5-10.1) Intake and Output 01/30/18 01/31/18 19:00 07:00 Intake Total 100 ml Balance 100 ml Intake Oral 100 ml # Voids 1 3 Objective General Appearance: WD/WN, no apparent distress, alert EENT: PERRL/EOMI, normal ENT inspection, TMs normal Neck: non-tender, normal alignment, supple, normal inspection Cardiovascular: normal peripheral pulses, normal rate, regular rhythm, no gallop/murmur, no JVD Respiratory/Chest: chest wall non-tender, lungs clear, normal breath sounds, no respiratory distress, no accessory muscle use Abdomen: normal bowel sounds, non tender, soft, no organomegaly, no mass Extremities: normal range of motion, non-tender 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 (2) HTN (hypertension) Assessment & Plan: Continue prn clonidine (3) Depression, major Assessment & Plan: Continue remeron and zyprexa (4) Syncope (5) Cerebral vascular accident Assessment & Plan: See MRI=acute left thalamic CVA. Await neurology consult. Status: not improved Magdy Church MD Jan 31, 2018 15:57
[2018-01-31 16:00] VITALS: BP 101/71
--- NOTE | 2018-01-31 17:11 | Consultation ---
Consult Note Consult Note NEUROLOGY CONSULTATION: Full note dictated #[id number] 62 y/o, RH, CM with PH of HTN, DM, depression, and a syncopal episode ~ 1 month ago. He lives in a NH and on 01/28/2018 had a syncopal episode at his NH and was sent to [facility]. A brain CT done on 01/28/18 revealed mild age-related changes. Negative for acute intracranial bleed or mass. He then had an MRI of the brain done on 01/29/18 which revealed " A very questionable focus of increased diffusion signal in the left thalamus." Carotid duplex with 30% ICA stenosis. He denies any weakness, altered sensation, speech, language or visual problems. He is unable to give me any details regarding his syncopal episodes. ON EXAM: Cognitive dysfunction. Globally absent DTRs. Unsteady gait. IMPRESSION: Syncopal episodes. Questionable focus of increased diffusion signal in the left thalamus on MRI with no clinical signs of symptoms. REC: W/U for syncope. BP/BS control. Continue Plavix Jhoana Wolf M.D., M.S.P.Gus. JHOANA WOLF Jan 31, 2018 17:11
--- NOTE | 2018-01-31 18:15 | Consultation ---
DATE OF CONSULTATION: 01/31/2018 NEUROLOGY CONSULTATION CONSULTING PHYSICIAN: Alen Wolf M.D. REQUESTING PHYSICIAN: Magdy Church M.D. HISTORY: Mr. Davy Bateman is a 62-year-old, right-handed, gentleman, who does have a past history of hypertension, diabetes mellitus, depression, and a syncopal episode approximately 1 month ago. He apparently lives in a shelter and on 01/28/2018, he had another syncopal episode at his shelter. As a result of that, he was sent to the [facility] emergency room. He himself cannot give me any details of his episodes of loss of consciousness. He, however, denies any weakness, numbness, problems with speech, problems with language, problems with vision, problems with memory, or other neurological symptoms associated with these events. When he was brought into the [facility] emergency room, a CT scan of the brain was done on 01/28/2018, which revealed mild age-related changes, but no intracranial bleed, mass, or infarct. Then on 01/29/2018, an MRI scan of the brain was done, which revealed "a very questionable focus of increased diffusion signal in the left thalamus." This consultation was requested to evaluate the patient for an acute stroke. At this point in time, the patient feels unwell due to reasons unknown to him. He denies any weakness on one side or the other, numbness on one side or the other, problems with speech, problems with language, problems with vision, or other neurological symptoms. PAST MEDICAL HISTORY: Significant for hypertension, diabetes mellitus, depression, and an episode of fainting approximately 1 month ago. FAMILY HISTORY: Nothing significant. PERSONAL HISTORY: Home: [place] the [place] and was recently living in a shelter. 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 Habits: He smokes approximately 1 pack of cigarettes per day. He has a rare alcoholic drink. He denies the use of any illicit drugs. PRESENT MEDICATIONS: Include Prozac, Plavix, Phenergan with Codeine, Neurontin, NovoLog insulin, Remeron, Zyprexa, heparin for DVT prophylaxis, DuoNeb inhaler p.r.n., Tylenol p.r.n., morphine p.r.n., MiraLAX p.r.n., Zofran p.r.n., Restoril p.r.n., Mylanta p.r.n., nitroglycerin p.r.n., and clonidine p.r.n. PHYSICAL EXAMINATION: GENERAL: He is a well-developed, well-nourished, but lean gentleman, lying in bed, in no acute distress. VITAL SIGNS: Pulse 78/minute, blood pressure 101/71 mmHg, respirations 16/minute, and temperature 98.2 degrees Fahrenheit. HEAD: Normocephalic and atraumatic. EENT: Examination benign. NECK: No neck rigidity was observed. NEUROLOGICAL EXAMINATION: MENTAL STATUS EXAMINATION: He was awake and alert. He was oriented to person, place, and time except for the exact date. He was able to recall 3/3 words immediately and in 1 minute, but could only remember 2/3 words in 3 minutes. He was able to remember presidents, Trump and Obama, but could not remember presidents prior to that. His mathematical skills were impaired. His visuospatial function was also impaired. SPEECH: He had no dysarthria. LANGUAGE: He had no aphasia. CRANIAL NERVE EXAMINATION: II: The visual winter were intact to confrontation testing. III, IV & : The external ocular movements were full and the pupils 3 mm in diameter, equal, round, regular, and reactive to light. V: He had normal facial sensations, and the temporales, masseters, and pterygoids functioned normally. VII: He had normal facial expressions and no facial asymmetry. VIII: He was able to hear well bilaterally and he had no nystagmus. IX: The palate moved symmetrically on phonation. X: He had no hoarseness of voice. XI: The sternocleidomastoids and trapezii function normally. XII: The tongue was in the midline without any fasciculations or atrophy. MOTOR SYSTEM: The tone was normal in all four extremities. Examination of muscle mass revealed no focal wasting. Examination of power revealed grade 5/5 power in all muscle groups tested. SENSORY EXAMINATION: He had intact sensations to pinprick and light touch. Position sense was diminished in the toes bilaterally, but was normal in the fingers bilaterally. Graphesthesia was normal bilaterally. REFLEXES: 0 at the biceps, triceps, brachioradialis, knees, and ankles. The plantar responses were flexor bilaterally. STANCE: He had a minimally wide-based, but stable stance. GAIT: He walks with a minimally wide-based, but stable gait. DIAGNOSTIC IMPRESSION: 1. Mr. Davy Bateman is a 62-year-old, right-handed, gentleman, with a past history of hypertension, diabetes mellitus, depression, and a syncopal episode approximately 1 month ago, who for the last month or so has been living in a shelter where he had another syncopal episode as a result of which, he was sent to the [facility] emergency room. While he was being investigated for the syncopal episode, an MRI scan of the brain was done on 01/29/2018, which revealed a very questionable focus of increased diffusion signal in the left thalamus. This consultation was requested to evaluate the patient for a possible stroke. 2. On neurological examination at this time, he does have problems with orientation, recent and remote memory, visuospatial function, and higher cognitive function. He also has absent deep tendon reflexes and some unsteadiness on his feet when he walks. He, however, does not demonstrate any signs of focal or lateralizing neurological dysfunction. 3. A CT scan of the brain performed on 01/28/2018 was reviewed and revealed mild age-related changes, but no intracranial mass, hemorrhage, or infarct. 4. The MRI scan of the brain done on 01/29/2018 was also reviewed and revealed a tiny area of increased diffusion signal in the left thalamus most probably of an artifactual nature. 5. His carotid duplex performed on 01/30/2018 revealed 30% stenosis of both internal carotid arteries. 6. Laboratory data obtained thus far have revealed that his WBC count was elevated to 11,100 on admission and has now come down to 9400. He is mildly anemic with a hemoglobin of 13.1. His chemistry panel on admission revealed a blood glucose elevated to 29.8 his TSH was normal at 3.25. His hemoglobin A1c was elevated to 8.8% and his LDL was at 97. 7. The patient's history and neurological examination are most compatible with syncopal episodes. The description of which is unavailable to us. 8. The questionable focus of increased diffusion signal in the left thalamus on the MRI scan is not associated with any signs or symptoms and is thus most probably of an artifactual nature. RECOMMENDATIONS: 1. Agree with management thus far. 2. The patient should be worked up thoroughly for other treatable causes of syncope. 3. The patient's blood pressures and blood sugars should be controlled and brought down into physiological range. 4. The patient is on Plavix, which should be continued. 5. The patient will be observed closely and depending on how he fares over the next day or so, further recommendations will be given. Thank you for entrusting me with the care of Mr. Bateman. I shall follow him with you. Alen Wolf M.D., M.S.P.H. DR: CARINA JOB#: [id number] MTDD
[2018-01-31 20:00] VITALS: BP 98/72
--- NOTE | 2018-01-31 20:01 | Cardiology Progress Note ---
Assessment/Plan Status: stable Assessment/Plan Assessment Diabetes DVT Depression Hyperglycemia Syncope Confusion Plan Echo reviewed - no findings to suggest cardiac syncope -Check carotid US -Orthostatics -Cultures -IV fluids -Glucose control HgA1c 8.8 -Etiology may be from autonomic dysfunction from longstanding poorly controlled diabetes -May benefit from compression stockings and isometric exercises. -Syncope does not appear to be from an aural/balance etiology, CT head negative. -Telemetry to monitor for arrhythmias -EEG, Neuro consult appreciated -MRI reviewed, possible small infarct -Continue plavix -Physical therapy -Aspiration precautions Subjective Cardiovascular: Reports: no symptoms Respiratory: Reports: no symptoms Gastrointestinal/Abdominal: Reports: no symptoms Genitourinary: Reports: no symptoms Subjective No acute events, no distress, vitals stable. Asleep, irritable Objective Last 24 Hour Vital Signs Date Time Temp Pulse Resp B/P (MAP) Pulse Ox O2 Delivery O2 Flow Rate FiO2 01/31/18 16:00 98.2 78 16 101/71 (81) 100 98.2 01/31/18 15:27 77 01/31/18 14:01 72 16 Room Air 21 01/31/18 12:00 97.3 72 16 101/69 (80) 100 97.3 01/31/18 11:35 72 01/31/18 08:10 Room Air 01/31/18 08:00 97.7 74 18 99/67 (78) 95 97.7 01/31/18 07:49 71 01/31/18 04:00 97.7 78 20 96/75 (82) 96 97.7 01/31/18 03:35 72 01/31/18 00:00 98.7 86 20 110/88 (95) 98 98.7 01/30/18 23:34 74 01/30/18 21:00 Room Air 01/30/18 20:10 72 16 99 Room Air 21 01/30/18 20:02 70 16 Room Air 21 01/30/18 20:02 70 16 95 Room Air 21 01/30/18 20:00 97.8 67 20 110/66 (81) 92 97.8 General Appearance: no apparent distress EENT: PERRL/EOMI Neck: non-tender, normal alignment, supple, no JVD Rhythm: NSR Cardiovascular: normal peripheral pulses, normal rate, regular rhythm Respiratory/Chest: chest wall non-tender, lungs clear, normal breath sounds Abdomen: normal bowel sounds, non tender Extremities: normal range of motion 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0) Lymphocytes (%) (Auto) 27.8 % (20.0-45.0) Monocytes (%) (Auto) 8.1 % (1.0-10.0) Eosinophils (%) (Auto) 9.6 % (0.0-3.0) H Basophils (%) (Auto) 1.1 % (0.0-2.0) Sodium Level 137 MMOL/L (136-145) Potassium Level 4.1 MMOL/L (3.5-5.1) Chloride Level 103 MMOL/L (98-107) Carbon Dioxide Level 28 MMOL/L (21-32) Anion Gap 6 mmol/L (5-15) Blood Urea Nitrogen 18 mg/dL (7-18) Creatinine 0.6 MG/DL (0.55-1.30) Estimat Glomerular Filtration Rate > 60 mL/min (>60) Glucose Level 162 MG/DL (74-106) H Calcium Level 9.1 MG/DL (8.5-10.1) Vitamin B12 Level Pending Vitamin D 25-Hydroxy Pending 25-Hydroxy Vitamin D2 Pending 25-Hydroxy Vitamin D3 Pending Folate Pending Davy Smyth M.D. Jan 31, 2018 20:01
[2018-01-31] MEDS: OLANZapine 2.5mg tab ORAL SCH (22:24)
[2018-02-01] VITALS: BP 92/65
[2018-02-01 04:00] VITALS: BP 98/66
[2018-02-01] MEDS: NovoLOG Insulin Flexpen SUBQ SCH ×4 (06:10→20:44)
[2018-02-01 07:10] LABS: BASOPHILS % (AUTO) 0.9 % (0.0-2.0); EOSINOPHILS % (AUTO) 8.4 % (0.0-3.0); HEMATOCRIT 38.4 % (42.0-52.0); HEMOGLOBIN 13.8 G/DL (14.2-18.0); LYMPHOCYTES % (AUTO) 21.1 % (20.0-45.0); MEAN CORPUSCULAR VOLUME 87 FL (80-99); MONOCYTES % (AUTO) 8.3 % (1.0-10.0); NEUTROPHILS % (AUTO) 61.3 % (45.0-75.0); PLATELET COUNT 199 K/UL (150-450); RED BLOOD COUNT 4.44 M/UL (4.70-6.10); RED CELL DISTRIBUTION WIDTH 11.5 % (11.6-14.8); WHITE BLOOD COUNT 10.8 K/UL (4.8-10.8)
[2018-02-01 07:14] LABS: ANION GAP 9 mmol/L (5-15); BLOOD UREA NITROGEN 22 mg/dL (7-18); CALCIUM 8.9 MG/DL (8.5-10.1); CARBON DIOXIDE 27 MMOL/L (21-32); CHLORIDE 103 MMOL/L (98-107); CREATININE 0.6 MG/DL (0.55-1.30); POTASSIUM 3.9 MMOL/L (3.5-5.1); SODIUM 138 MMOL/L (136-145)
[2018-02-01 08:00] VITALS: BP 97/56
[2018-02-01] MEDS: Heparin 5000 units/ml inj SUBQ SCH ×2 (08:29→20:45)
--- NOTE | 2018-02-01 10:38 | General Progress Note ---
Assessment/Plan Status: stable Assessment/Plan # Anemia due to underlying chronic disease. --> Currently stable, no w/u required. Hgb above 13 # Leukocytosis, likely secondary to reactive process, seems to be resolved. # Deep venous thrombosis. The patient with a history of deep venous thrombosis before. --> Imaging has been reviewed. No evidence of deep venous thrombosis at this time. # Diabetes mellitus. A1c goal less than 7. --> 01/30 A1C of 8.8 # Hyperlipidemia. # Protein-calorie malnutrition. # Syncopal episode. Cardiology and Neurology Service consulted. # Hypertension. Systolic blood pressure goal less than 140. The time the note was entered does not necessarily correspond to the time the patient was seen. Subjective Date patient seen: Feb 01, 2018 ROS Limited/Unobtainable: Yes Hematologic/Lymphatic: Reports: anemia Allergies: Coded Allergies: No Known Allergies (Unverified , 04/12/17) All Systems: reviewed and negative except above Subjective Pt awake and alert. No acute events. H/H stable. Objective Last 24 Hour Vital Signs Date Time Temp Pulse Resp B/P (MAP) Pulse Ox O2 Delivery O2 Flow Rate FiO2 02/01/18 09:00 Room Air 02/01/18 08:00 98.0 73 20 97/56 (70) 97 98.0 02/01/18 04:00 72 02/01/18 04:00 98.2 90 19 98/66 (77) 95 98.2 02/01/18 00:00 98.2 72 17 92/65 (74) 96 98.2 02/01/18 00:00 72 01/31/18 21:00 Room Air 01/31/18 20:05 77 18 Room Air 21 01/31/18 20:00 98.2 72 18 98/72 (81) 97 98.2 01/31/18 20:00 75 01/31/18 16:00 98.2 78 16 101/71 (81) 100 98.2 01/31/18 15:27 77 01/31/18 14:01 72 16 Room Air 21 01/31/18 12:00 97.3 72 16 101/69 (80) 100 97.3 01/31/18 11:35 72 Intake and Output 01/31/18 02/01/18 19:00 07:00 Intake Total 590 ml Output Total 0 ml Balance 590 ml 0 ml Intake Oral 590 ml Output Urine Total 0 ml # Voids 2 Laboratory Tests 02/01/18 06:30: White Blood Count 10.8, Red Blood Count 4.44L, Hemoglobin 13.8L, Hematocrit 38.4L, Mean Corpuscular Volume 87, Mean Corpuscular Hemoglobin 31.0, Mean Corpuscular Hemoglobin Concent 35.9, Red Cell Distribution Width 11.5L, Platelet Count 199, Mean Platelet Volume 7.5, Neutrophils (%) (Auto) 61.3, Lymphocytes (%) (Auto) 21.1, Monocytes (%) (Auto) 8.3, Eosinophils (%) (Auto) 8.4H, Basophils (%) (Auto) 0.9, Sodium Level 138, Potassium Level 3.9, Chloride Level 103, Carbon Dioxide Level 27, Anion Gap 9, Blood Urea Nitrogen 22H, Creatinine 0.6, Estimat Glomerular Filtration Rate > 60, Glucose Level 210H, Calcium Level 8.9 Height (Feet): 5 Height (Inches): 10.00 Weight (Pounds): 138 General Appearance: no apparent distress, alert EENT: PERRL/EOMI Neck: normal alignment Cardiovascular: normal peripheral pulses Respiratory/Chest: no respiratory distress Abdomen: soft Jonathan Morrow MD Feb 01, 2018 10:38
--- NOTE | 2018-02-01 10:39 | Cardiology Progress Note ---
Assessment/Plan Status: stable Assessment/Plan Assessment Diabetes DVT Depression Hyperglycemia Syncope Confusion Plan Echo reviewed - no findings to suggest cardiac syncope -Check carotid US -Orthostatics -Cultures -IV fluids -Glucose control HgA1c 8.8 -Etiology may be from autonomic dysfunction from longstanding poorly controlled diabetes -May benefit from compression stockings and isometric exercises. -Syncope does not appear to be from an aural/balance etiology, CT head negative. -Telemetry to monitor for arrhythmias -EEG, Neuro consult appreciated -MRI reviewed, possible small infarct -Continue plavix -Physical therapy -Aspiration precautions Subjective Cardiovascular: Reports: no symptoms Respiratory: Reports: no symptoms Gastrointestinal/Abdominal: Reports: no symptoms Genitourinary: Reports: no symptoms Subjective No acute events, no distress, vitals stable. Asleep, irritable Objective Last 24 Hour Vital Signs Date Time Temp Pulse Resp B/P (MAP) Pulse Ox O2 Delivery O2 Flow Rate FiO2 02/01/18 09:00 Room Air 02/01/18 08:00 98.0 73 20 97/56 (70) 97 98.0 02/01/18 04:00 72 02/01/18 04:00 98.2 90 19 98/66 (77) 95 98.2 02/01/18 00:00 98.2 72 17 92/65 (74) 96 98.2 02/01/18 00:00 72 01/31/18 21:00 Room Air 01/31/18 20:05 77 18 Room Air 21 01/31/18 20:00 98.2 72 18 98/72 (81) 97 98.2 01/31/18 20:00 75 01/31/18 16:00 98.2 78 16 101/71 (81) 100 98.2 01/31/18 15:27 77 01/31/18 14:01 72 16 Room Air 21 01/31/18 12:00 97.3 72 16 101/69 (80) 100 97.3 01/31/18 11:35 72 General Appearance: no apparent distress, alert EENT: PERRL/EOMI, normal ENT inspection Rhythm: NSR Cardiovascular: normal peripheral pulses, normal rate, regular rhythm Respiratory/Chest: chest wall non-tender, lungs clear Abdomen: normal bowel sounds, non tender Extremities: normal range of motion, non-tender 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, no motor/sensory deficits Intake and Output 01/31/18 02/01/18 19:00 07:00 Intake Total 590 ml Output Total 0 ml Balance 590 ml 0 ml Intake Oral 590 ml Output Urine Total 0 ml # Voids 2 Laboratory Tests Test 02/01/18 06:30 White Blood Count 10.8 K/UL (4.8-10.8) Red Blood Count 4.44 M/UL (4.70-6.10) L Hemoglobin 13.8 G/DL (14.2-18.0) L Hematocrit 38.4 % (42.0-52.0) L Mean Corpuscular Volume 87 FL (80-99) Mean Corpuscular Hemoglobin 31.0 PG (27.0-31.0) Mean Corpuscular Hemoglobin Concent 35.9 G/DL (32.0-36.0) Red Cell Distribution Width 11.5 % (11.6-14.8) L Platelet Count 199 K/UL (150-450) Mean Platelet Volume 7.5 FL (6.5-10.1) Neutrophils (%) (Auto) 61.3 % (45.0-75.0) Lymphocytes (%) (Auto) 21.1 % (20.0-45.0) Monocytes (%) (Auto) 8.3 % (1.0-10.0) Eosinophils (%) (Auto) 8.4 % (0.0-3.0) H Basophils (%) (Auto) 0.9 % (0.0-2.0) Sodium Level 138 MMOL/L (136-145) Potassium Level 3.9 MMOL/L (3.5-5.1) Chloride Level 103 MMOL/L (98-107) Carbon Dioxide Level 27 MMOL/L (21-32) Anion Gap 9 mmol/L (5-15) Blood Urea Nitrogen 22 mg/dL (7-18) H Creatinine 0.6 MG/DL (0.55-1.30) Estimat Glomerular Filtration Rate > 60 mL/min (>60) Glucose Level 210 MG/DL (74-106) H Calcium Level 8.9 MG/DL (8.5-10.1) Davy Smyth M.D. Feb 01, 2018 10:39
[2018-02-01 12:00] VITALS: BP 91/59
--- NOTE | 2018-02-01 13:33 | Internal Med Progress Note ---
Subjective Date of Service: Feb 01, 2018 Physician Name Magdy Church Attending Physician Jose Michele MD Current Medications Medications (Trade) Dose Ordered Sig/Eylssa Route PRN Reason Start Time Stop Time Status Last Admin Dose Admin Acetaminophen (Tylenol) 650 mg Q4H PRN ORAL fever 01/28/18 22:15 02/27/18 22:14 01/28/18 22:46 Al Hydroxide/Mg Hydroxide (Mylanta II) 30 ml Q6H PRN ORAL dyspepsia 01/28/18 22:15 02/27/18 22:14 Albuterol/ Ipratropium (Albuterol/ Ipratropium) 3 ml Q4H PRN HHN Shortness of Breath 01/28/18 22:15 02/02/18 22:14 01/30/18 20:02 Clonidine HCl (Catapres Tab) 0.1 mg Q4H PRN ORAL For High Blood Pressure 01/28/18 22:15 02/27/18 22:14 Clopidogrel Bisulfate (Plavix) 75 mg DAILY ORAL 01/31/18 09:00 03/02/18 08:59 02/01/18 08:30 Dextrose (Dextrose 50%) 25 ml STAT PRN IV Hypoglycemia 01/28/18 22:15 02/27/18 22:14 Dextrose (Dextrose 50%) 50 ml STAT PRN IV Hypoglycemia 01/28/18 22:15 02/27/18 22:14 Fluoxetine HCl (PROzac) 20 mg DAILY ORAL 01/31/18 12:30 03/02/18 12:29 02/01/18 08:30 Gabapentin (Neurontin) 100 mg THREE TIMES A DAY ORAL 01/29/18 09:00 02/28/18 08:59 02/01/18 12:43 Heparin Sodium (Porcine) (Heparin 5000 units/ml) 5,000 units EVERY 12 HOURS SUBQ 01/28/18 22:30 02/27/18 22:29 02/01/18 08:29 Insulin Aspart (NovoLOG) BEFORE MEALS AND HS SUBQ 01/29/18 06:30 02/28/18 06:29 02/01/18 11:15 Lorazepam (Ativan 2mg/ml 1ml) 0.5 mg Q4H PRN IV For Anxiety 01/28/18 22:15 02/04/18 22:14 01/29/18 19:59 Mirtazapine (Remeron) 7.5 mg BEDTIME ORAL 01/28/18 22:30 02/27/18 22:29 01/31/18 22:24 Morphine Sulfate (Morphine Sulfate) 1 mg Q4H PRN IVP For Pain 7-01/28/18 22:15 02/04/18 22:14 Nitroglycerin (Ntg) 0.4 mg Q5M X 3 DOSES PRN SL Prn Chest Pain 01/28/18 22:15 02/27/18 22:14 Olanzapine (ZyPREXA) 2.5 mg QHS ORAL 01/28/18 22:30 02/27/18 22:29 01/31/18 22:24 Ondansetron HCl (Zofran) 4 mg Q6H PRN IVP Nausea & Vomiting 01/28/18 22:15 02/27/18 22:14 Polyethylene Glycol (Miralax) 17 gm HSPRN PRN ORAL Constipation 01/28/18 22:15 02/27/18 22:14 Promethazine HCl/ Codeine (Phenergan with Codeine) 5 ml Q6H PRN ORAL For Cough 01/29/18 21:30 02/28/18 21:29 01/30/18 19:31 Temazepam (Restoril) 15 mg HSPRN PRN ORAL Insomnia 01/28/18 22:15 02/04/18 22:14 Allergies: Coded Allergies: No Known Allergies (Unverified , 04/12/17) ROS Limited/Unobtainable: No Constitutional: Reports: no symptoms HEENT: Reports: no symptoms Cardiovascular: Reports: no symptoms Respiratory: Reports: shortness of breath Gastrointestinal/Abdominal: Reports: no symptoms Genitourinary: Reports: no symptoms 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: Reports: no symptoms Subjective 62 YO M admitted with chief complaint of syncope. Now left acute CVA. Cover for Int Shuan-Dr Michele. Objective Last Vital Signs Date Time Temp Pulse Resp B/P (MAP) Pulse Ox O2 Delivery O2 Flow Rate FiO2 02/01/18 12:08 96 Room Air 02/01/18 12:00 97.4 74 18 91/59 (70) 97.4 01/31/18 20:05 21 Laboratory Tests Test 02/01/18 06:30 White Blood Count 10.8 K/UL (4.8-10.8) Red Blood Count 4.44 M/UL (4.70-6.10) L Hemoglobin 13.8 G/DL (14.2-18.0) L Hematocrit 38.4 % (42.0-52.0) L Mean Corpuscular Volume 87 FL (80-99) Mean Corpuscular Hemoglobin 31.0 PG (27.0-31.0) Mean Corpuscular Hemoglobin Concent 35.9 G/DL (32.0-36.0) Red Cell Distribution Width 11.5 % (11.6-14.8) L Platelet Count 199 K/UL (150-450) Mean Platelet Volume 7.5 FL (6.5-10.1) Neutrophils (%) (Auto) 61.3 % (45.0-75.0) Lymphocytes (%) (Auto) 21.1 % (20.0-45.0) Monocytes (%) (Auto) 8.3 % (1.0-10.0) Eosinophils (%) (Auto) 8.4 % (0.0-3.0) H Basophils (%) (Auto) 0.9 % (0.0-2.0) Sodium Level 138 MMOL/L (136-145) Potassium Level 3.9 MMOL/L (3.5-5.1) Chloride Level 103 MMOL/L (98-107) Carbon Dioxide Level 27 MMOL/L (21-32) Anion Gap 9 mmol/L (5-15) Blood Urea Nitrogen 22 mg/dL (7-18) H Creatinine 0.6 MG/DL (0.55-1.30) Estimat Glomerular Filtration Rate > 60 mL/min (>60) Glucose Level 210 MG/DL (74-106) H Calcium Level 8.9 MG/DL (8.5-10.1) Intake and Output 01/31/18 02/01/18 19:00 07:00 Intake Total 590 ml Output Total 0 ml Balance 590 ml 0 ml Intake Oral 590 ml Output Urine Total 0 ml # Voids 2 Objective General Appearance: WD/WN, no apparent distress, alert EENT: PERRL/EOMI, normal ENT inspection, TMs normal Neck: non-tender, normal alignment, supple, normal inspection Cardiovascular: normal peripheral pulses, normal rate, regular rhythm, no gallop/murmur, no JVD Respiratory/Chest: chest wall non-tender, lungs clear, normal breath sounds, no respiratory distress, no accessory muscle use Abdomen: normal bowel sounds, non tender, soft, no organomegaly, no mass Extremities: normal range of motion, non-tender Neurologic: drop worker II-XII grossly normal, no motor/sensory deficits Skin: normal pigmentation, warm/dry Assessment/Plan Problem List: (1) Diabetes mellitus type II, uncontrolled Assessment & Plan: Continue novolog sliding scale. (2) HTN (hypertension) Assessment & Plan: Continue prn clonidine (3) Depression, major Assessment & Plan: Continue remeron and zyprexa (4) Syncope (5) Cerebral vascular accident Assessment & Plan: See MRI=no acute CVA-see neurology consult. Status: progressing Assessment/Plan Transfer to Med/Surg Magdy Church MD Feb 01, 2018 13:33
[2018-02-01] MEDS ORDERED: LORazepam Inj 2mg/ml 1ml IV PRN (14:30)
--- NOTE | 2018-02-01 15:22 | Neurology Progress Note ---
Interim History Interim History Interim History Mr. Bateman is in a foul mood. He wants to be left alone. He denies any new neurologic symptoms. He specifically denies any weakness, numbness, visual problems or speech problems. Review of Systems Neuro Review of Systems Benign. Objective Physical Exam Last Vital Signs Date Time Temp Pulse Resp B/P (MAP) Pulse Ox O2 Delivery O2 Flow Rate FiO2 02/01/18 12:08 96 Room Air 02/01/18 12:00 75 02/01/18 12:00 97.4 18 91/59 (70) 97.4 01/31/18 20:05 21 Laboratory Tests Test 02/01/18 06:30 White Blood Count 10.8 K/UL (4.8-10.8) Red Blood Count 4.44 M/UL (4.70-6.10) L Hemoglobin 13.8 G/DL (14.2-18.0) L Hematocrit 38.4 % (42.0-52.0) L Mean Corpuscular Volume 87 FL (80-99) Mean Corpuscular Hemoglobin 31.0 PG (27.0-31.0) Mean Corpuscular Hemoglobin Concent 35.9 G/DL (32.0-36.0) Red Cell Distribution Width 11.5 % (11.6-14.8) L Platelet Count 199 K/UL (150-450) Mean Platelet Volume 7.5 FL (6.5-10.1) Neutrophils (%) (Auto) 61.3 % (45.0-75.0) Lymphocytes (%) (Auto) 21.1 % (20.0-45.0) Monocytes (%) (Auto) 8.3 % (1.0-10.0) Eosinophils (%) (Auto) 8.4 % (0.0-3.0) H Basophils (%) (Auto) 0.9 % (0.0-2.0) Sodium Level 138 MMOL/L (136-145) Potassium Level 3.9 MMOL/L (3.5-5.1) Chloride Level 103 MMOL/L (98-107) Carbon Dioxide Level 27 MMOL/L (21-32) Anion Gap 9 mmol/L (5-15) Blood Urea Nitrogen 22 mg/dL (7-18) H Creatinine 0.6 MG/DL (0.55-1.30) Estimat Glomerular Filtration Rate > 60 mL/min (>60) Glucose Level 210 MG/DL (74-106) H Calcium Level 8.9 MG/DL (8.5-10.1) Neurologic Exam Objective PHYSICAL EXAMINATION: GENERAL: He is a well-developed, well-nourished, but lean gentleman, lying in bed, in no acute distress. HEAD: Normocephalic and atraumatic. EENT: Examination benign. NECK: No neck rigidity was observed. NEUROLOGICAL EXAMINATION: MENTAL STATUS EXAMINATION: He was awake and alert. He was oriented to person, place, and time except for the exact date. He was able to recall 3/3 words immediately and in 1 minute, but could only remember 2/3 words in 3 minutes. He was able to remember presidents, Trump and Obama, but could not remember presidents prior to that. His mathematical skills were impaired. His visuospatial function was also impaired. SPEECH: He had no dysarthria. LANGUAGE: He had no aphasia. CRANIAL NERVE EXAMINATION: II: The visual winter were intact to confrontation testing. III, IV & : The external ocular movements were full and the pupils 3 mm in diameter, equal, round, regular, and reactive to light. V: He had normal facial sensations, and the temporales, masseters, and pterygoids functioned normally. VII: He had normal facial expressions and no facial asymmetry. VIII: He was able to hear well bilaterally and he had no nystagmus. IX: The palate moved symmetrically on phonation. X: He had no hoarseness of voice. XI: The sternocleidomastoids and trapezii function normally. XII: The tongue was in the midline without any fasciculations or atrophy. MOTOR SYSTEM: The tone was normal in all four extremities. Examination of muscle mass revealed no focal wasting. Examination of power revealed grade 5/5 power in all muscle groups tested. SENSORY EXAMINATION: He had intact sensations to pinprick and light touch. Position sense was diminished in the toes bilaterally, but was normal in the fingers bilaterally. Graphesthesia was normal bilaterally. REFLEXES: 0 at the biceps, triceps, brachioradialis, knees, and ankles. The plantar responses were flexor bilaterally. STANCE: He had a minimally wide-based, but stable stance. GAIT: He walks with a minimally wide-based, but stable gait. Impression/Recommendations Diagnostic Impression 1. Mr. Davy Bateman is a 62-year-old, right-handed, gentleman, with a past history of hypertension, diabetes mellitus, depression, and a syncopal episode approximately 1 month ago, who for the last month or so has been living [facility] a [facility] where he had another syncopal episode as a result of which, he was sent to the [facility] emergency room. While he was being investigated for the syncopal episode, an MRI scan of the brain was done on , which revealed a very questionable focus of increased diffusion signal in the left thalamus. This consultation was requested to evaluate the patient for a possible stroke. 2. He is in a foul mood. He wants to be left alone. He denies any new neurologic symptoms. He specifically denies any weakness, numbness, visual problems or speech problems. 3. On neurological examination at this time, he does have problems with orientation, recent and remote memory, visuospatial function, and higher cognitive function. He also has absent deep tendon reflexes and some unsteadiness on his feet when he walks. He, however, does not demonstrate any signs of focal or lateralizing neurological dysfunction. 4. A CT scan of the brain performed on 01/28/2018 was reviewed and revealed mild age-related changes, but no intracranial mass, hemorrhage, or infarct. 5. The MRI scan of the brain done on 01/29/2018 was also reviewed and revealed a tiny area of increased diffusion signal in the left thalamus most probably of an artifactual nature. 6. His carotid duplex performed on 01/30/2018 revealed 30% stenosis of both internal carotid arteries. 7. Laboratory data obtained thus far have revealed that his WBC count was elevated to 11,100 on admission and has now come down to 9400. He is mildly anemic with a hemoglobin of 13.1. His chemistry panel on admission revealed a blood glucose elevated to 29.8 his TSH was normal at 3.25. His hemoglobin A1c was elevated to 8.8% and his LDL was at 97. 8. The patient's history and neurological examination are most compatible with syncopal episodes. The description of which is unavailable to us. 9. The questionable focus of increased diffusion signal in the left thalamus on the MRI scan is not associated with any signs or symptoms, and is thus most probably of an artifactual nature. Recommendations 1. Continue present management. 2. The patient's blood pressures and blood sugars should be controlled and brought down into physiological range. 3. Continue Plavix. 4. No further neurologic intervention needed. Jhoana Wolf M.D., M.S.P.H. JHOANA WOLF Feb 01, 2018 15:22
[2018-02-01] MEDS ORDERED: Nitroglycerin Subl 0.4mg tab SL PRN (15:45)
[2018-02-01 16:00] VITALS: BP 121/74
[2018-02-01] MEDS ORDERED: Mylanta II UD 30ml ORAL PRN (16:15)
[2018-02-01] MEDS ORDERED: Promethazine/Codeine 5ml UD ORAL PRN (16:30)
[2018-02-01] MEDS ORDERED: Morphine Sulfate 2mg/ml Inj(IV/IM USE ONLY) IVP PRN (16:30)
[2018-02-01] MEDS ORDERED: Albuterol/Ipratropium 3ml neb HHN PRN (16:30)
[2018-02-01] MEDS ORDERED: Miralax 17gm pkt ORAL PRN (16:30)
[2018-02-01 20:00] VITALS: BP 115/75
[2018-02-01] MEDS ORDERED: OLANZapine 2.5mg tab ORAL SCH (21:00)
[2018-02-02] VITALS (8 sets, daily range): BP systolic 92–125; BP diastolic 54–71
[2018-02-02] MEDS: NovoLOG Insulin Flexpen SUBQ SCH ×4 (06:45→21:31)
[2018-02-02 07:59] LABS: HEMATOCRIT 41.3 % (42.0-52.0); HEMOGLOBIN 13.7 G/DL (14.2-18.0); MEAN CORPUSCULAR VOLUME 86 FL (80-99); PLATELET COUNT 176 K/UL (150-450); RED BLOOD COUNT 4.78 M/UL (4.70-6.10); RED CELL DISTRIBUTION WIDTH 11.6 % (11.6-14.8); WHITE BLOOD COUNT 11.3 K/UL (4.8-10.8)
--- NOTE | 2018-02-02 08:13 | Diagnostic Imaging Report ---
EXAM: CT Head Without Intravenous Contrast CLINICAL HISTORY: FALL TECHNIQUE: Axial computed tomography images of the head/brain without intravenous contrast. CTDI is 70 mGy and DLP is 1730 mGy-cm. One or more of the following dose reduction techniques were used: automated exposure control, adjustment of the mA and/or kV according to patient size, use of iterative reconstruction technique. COMPARISON: January 28, 2018. FINDINGS: Brain: Unremarkable. No hemorrhage. Age-appropriate white matter appearance. No CT evidence of acute infarct. Ventricles: Unremarkable. No ventriculomegaly. Bones/joints: Unremarkable. No acute fracture. Soft tissues: Unremarkable. Sinuses: Unremarkable as visualized. No acute sinusitis. Mastoid air cells: Unremarkable as visualized. No mastoid effusion. IMPRESSION: No acute intracranial or skull fractures. Age-related changes..
[2018-02-02 08:16] LABS: ANION GAP 11 mmol/L (5-15); BLOOD UREA NITROGEN 20 mg/dL (7-18); CALCIUM 9.1 MG/DL (8.5-10.1); CARBON DIOXIDE 23 MMOL/L (21-32); CHLORIDE 102 MMOL/L (98-107); CREATININE 0.9 MG/DL (0.55-1.30); POTASSIUM 3.8 MMOL/L (3.5-5.1); SODIUM 136 MMOL/L (136-145)
[2018-02-02] MEDS: Heparin 5000 units/ml inj SUBQ SCH (08:46)
[2018-02-02] MEDS ORDERED: Sodium Chloride 500ML 500 ML IV ONE (12:00)
[2018-02-02] MEDS ORDERED: Metoprolol Succinate XL 50mg tab ORAL SCH (13:00)
--- NOTE | 2018-02-02 13:20 | Neurology Progress Note ---
Interim History Interim History Interim History Mr. Bateman is subdued today. He says he feels he has no energy. Earlier today he was found to be hypotensive in the 70s systolic. He was given a fluid bolus. He also had an irregularly irregular pulse with rapid rates. An ECG was done and he was in atrial fibrillation. He has been given metoprolol and plans are to move him to a monitored bed. He denies any new neurologic symptoms. He specifically denies any weakness, numbness, visual problems or speech problems. Review of Systems Neuro Review of Systems Benign. Objective Physical Exam Last Vital Signs Date Time Temp Pulse Resp B/P (MAP) Pulse Ox O2 Delivery O2 Flow Rate FiO2 02/02/18 13:04 124 92/62 02/02/18 12:00 97.7 20 96 97.7 02/02/18 09:38 Room Air 21 Laboratory Tests Test 02/02/18 07:35 White Blood Count 11.3 K/UL (4.8-10.8) H Red Blood Count 4.78 M/UL (4.70-6.10) Hemoglobin 13.7 G/DL (14.2-18.0) L Hematocrit 41.3 % (42.0-52.0) L Mean Corpuscular Volume 86 FL (80-99) Mean Corpuscular Hemoglobin 28.6 PG (27.0-31.0) Mean Corpuscular Hemoglobin Concent 33.0 G/DL (32.0-36.0) Red Cell Distribution Width 11.6 % (11.6-14.8) Platelet Count 176 K/UL (150-450) Mean Platelet Volume 8.2 FL (6.5-10.1) Neutrophils (%) (Auto) % (45.0-75.0) Lymphocytes (%) (Auto) % (20.0-45.0) Monocytes (%) (Auto) % (1.0-10.0) Eosinophils (%) (Auto) % (0.0-3.0) Basophils (%) (Auto) % (0.0-2.0) Differential Total Cells Counted 100 Neutrophils % (Manual) 88 % (45-75) H Lymphocytes % (Manual) 9 % (20-45) L Monocytes % (Manual) 2 % (1-10) Eosinophils % (Manual) 1 % (0-3) Basophils % (Manual) 0 % (0-2) Band Neutrophils 0 % (0-8) Platelet Estimate Adequate Platelet Morphology Normal Red Blood Cell Morphology Normal Sodium Level 136 MMOL/L (136-145) Potassium Level 3.8 MMOL/L (3.5-5.1) Chloride Level 102 MMOL/L (98-107) Carbon Dioxide Level 23 MMOL/L (21-32) Anion Gap 11 mmol/L (5-15) Blood Urea Nitrogen 20 mg/dL (7-18) H Creatinine 0.9 MG/DL (0.55-1.30) Estimat Glomerular Filtration Rate > 60 mL/min (>60) Glucose Level 286 MG/DL (74-106) H Calcium Level 9.1 MG/DL (8.5-10.1) Neurologic Exam Objective PHYSICAL EXAMINATION: GENERAL: He is a well-developed, well-nourished, but lean gentleman, lying in bed, in no acute distress. HEAD: Normocephalic and atraumatic. EENT: Examination benign. NECK: No neck rigidity was observed. NEUROLOGICAL EXAMINATION: MENTAL STATUS EXAMINATION: He was awake and alert. He was oriented to person, place, and time except for the exact date. He was able to recall 3/3 words immediately and in 1 minute, but could only remember 2/3 words in 3 minutes. He was able to remember presidents, Trump and Obama, but could not remember presidents prior to that. His mathematical skills were impaired. His visuospatial function was also impaired. SPEECH: He had no dysarthria. LANGUAGE: He had no aphasia. CRANIAL NERVE EXAMINATION: II: The visual winter were intact to confrontation testing. III, IV & : The external ocular movements were full and the pupils 3 mm in diameter, equal, round, regular, and reactive to light. V: He had normal facial sensations, and the temporales, masseters, and pterygoids functioned normally. VII: He had normal facial expressions and no facial asymmetry. VIII: He was able to hear well bilaterally and he had no nystagmus. IX: The palate moved symmetrically on phonation. X: He had no hoarseness of voice. XI: The sternocleidomastoids and trapezii function normally. XII: The tongue was in the midline without any fasciculations or atrophy. MOTOR SYSTEM: The tone was normal in all four extremities. Examination of muscle mass revealed no focal wasting. Examination of power revealed grade 5/5 power in all muscle groups tested. SENSORY EXAMINATION: He had intact sensations to pinprick and light touch. Position sense was diminished in the toes bilaterally, but was normal in the fingers bilaterally. Graphesthesia was normal bilaterally. REFLEXES: 0 at the biceps, triceps, brachioradialis, knees, and ankles. The plantar responses were flexor bilaterally. STANCE & GAIT: Were deferred. Impression/Recommendations Diagnostic Impression 1. Mr. Davy Bateman is a 62-year-old, right-handed, gentleman, with a past history of hypertension, diabetes mellitus, depression, and a syncopal episode approximately 1 month ago, who for the last month or so has been living in a [facility] where he had another syncopal episode as a result of which, he was sent to the [facility] emergency room. While he was being investigated for the syncopal episode, an MRI scan of the brain was done on , which revealed a very questionable focus of increased diffusion signal in the left thalamus. This consultation was requested to evaluate the patient for a possible stroke. 2. He is subdued today. He says he feels he has no energy. Earlier today he was found to be hypotensive in the 70s systolic. He was given a fluid bolus. He also had an irregularly irregular pulse with rapid rates. An ECG was done and he was in atrial fibrillation. He has been given metoprolol and plans are to move him to a monitored bed. He denies any new neurologic symptoms. He specifically denies any weakness, numbness, visual problems or speech problems. 3. On neurological examination at this time, he does have problems with orientation, recent and remote memory, visuospatial function, and higher cognitive function. He also has absent deep tendon reflexes. He, however, does not demonstrate any signs of focal or lateralizing neurological dysfunction. His pulse is irregularly irregular at 124/minute. 4. A CT scan of the brain performed on 01/28/2018 was reviewed and revealed mild age-related changes, but no intracranial mass, hemorrhage, or infarct. 5. The MRI scan of the brain done on 01/29/2018 was also reviewed and revealed a tiny area of increased diffusion signal in the left thalamus most probably of an artifactual nature. 6. His carotid duplex performed on 01/30/2018 revealed 30% stenosis of both internal carotid arteries. 7. Laboratory data obtained thus far have revealed that his WBC count was elevated to 11,100 on admission and has now come down to 9400. He is mildly anemic with a hemoglobin of 13.1. His chemistry panel on admission revealed a blood glucose elevated to 29.8 his TSH was normal at 3.25. His hemoglobin A1c was elevated to 8.8% and his LDL was at 97. 8. The patient's history and neurological examination are most compatible with syncopal episodes. The description of which is unavailable to us. There is a high likelihood that his syncopal episodes are due to a cardiac arrhythmia. 9. The questionable focus of increased diffusion signal in the left thalamus on the MRI scan is not associated with any signs or symptoms, and is thus most probably of an artifactual nature. Recommendations 1. Continue present management. 2. The patient's blood pressures and blood sugars should be controlled and brought down into physiological range. 3. Now that he has been found to have paroxysmal atrial fibrillation - anticoagulation should be considered. 4. Continue Plavix. 5. Treatment of cardiac arrhythmia as per Dr. Smyth. Jhoana Wong M.D., M.S.P.H. JHOANA WONG Feb 02, 2018 13:20
[2018-02-02] MEDS ORDERED: Nitroglycerin Subl 0.4mg tab SL PRN (14:15)
[2018-02-02] MEDS ORDERED: Mylanta II UD 30ml ORAL PRN (14:24)
[2018-02-02] MEDS ORDERED: Albuterol/Ipratropium 3ml neb HHN PRN (14:25)
[2018-02-02] MEDS ORDERED: LORazepam Inj 2mg/ml 1ml IV PRN (14:30)
--- NOTE | 2018-02-02 15:40 | Internal Med Progress Note ---
Subjective Date of Service: Feb 02, 2018 Physician Name Magdy Church Attending Physician Jose Michele MD Current Medications Medications (Trade) Dose Ordered Sig/Elyssa Route PRN Reason Start Time Stop Time Status Last Admin Dose Admin Acetaminophen (Tylenol) 650 mg Q4H PRN ORAL fever 02/02/18 14:24 02/27/18 14:23 Al Hydroxide/Mg Hydroxide (Mylanta II) 30 ml Q6H PRN ORAL dyspepsia 02/02/18 14:24 02/27/18 14:23 Clonidine HCl (Catapres Tab) 0.1 mg Q4H PRN ORAL For SBP>160 02/02/18 14:24 02/27/18 14:23 Clopidogrel Bisulfate (Plavix) 75 mg DAILY ORAL 02/03/18 09:00 03/02/18 08:59 Dextrose (Dextrose 50%) 25 ml STAT PRN IV Hypoglycemia 02/02/18 14:25 02/27/18 14:24 Dextrose (Dextrose 50%) 50 ml STAT PRN IV Hypoglycemia 02/02/18 14:25 02/27/18 14:24 Fluoxetine HCl (PROzac) 20 mg DAILY ORAL 02/03/18 09:00 03/02/18 12:29 Gabapentin (Neurontin) 100 mg THREE TIMES A DAY ORAL 02/02/18 18:00 02/28/18 08:59 Heparin Sodium (Porcine) (Heparin 5000 units/ml) 5,000 units EVERY 12 HOURS SUBQ 02/02/18 21:00 02/27/18 22:29 Insulin Aspart (NovoLOG) BEFORE MEALS AND HS SUBQ 02/02/18 16:30 02/28/18 06:29 Lorazepam (Ativan 2mg/ml 1ml) 0.5 mg Q4H PRN IV For Anxiety 02/02/18 14:30 02/04/18 14:29 Metoprolol Succinate (Toprol XL) 50 mg DAILY ORAL 02/03/18 09:00 03/05/18 08:59 Mirtazapine (Remeron) 7.5 mg BEDTIME ORAL 02/02/18 21:00 02/27/18 22:29 Morphine Sulfate (Morphine Sulfate) 1 mg Q4H PRN IVP For Pain 7-02/02/18 16:30 02/04/18 16:29 Nitroglycerin (Ntg) 0.4 mg Q5M X 3 DOSES PRN SL Prn Chest Pain 02/02/18 14:15 02/27/18 22:14 Olanzapine (ZyPREXA) 2.5 mg QHS ORAL 02/02/18 21:00 02/27/18 22:29 Ondansetron HCl (Zofran) 4 mg Q6H PRN IVP Nausea & Vomiting 02/02/18 16:15 02/27/18 22:14 Polyethylene Glycol (Miralax) 17 gm HSPRN PRN ORAL Constipation 02/02/18 16:30 02/27/18 16:29 Promethazine HCl/ Codeine (Phenergan with Codeine) 5 ml Q6H PRN ORAL For Cough 02/02/18 16:30 02/28/18 16:29 Temazepam (Restoril) 15 mg HSPRN PRN ORAL Insomnia 02/02/18 18:00 02/04/18 17:59 Allergies: Coded Allergies: No Known Allergies (Unverified , 04/12/17) Subjective 62 YO M admitted with chief complaint of syncope. Now atrial fibrillation. Cover for Int Med-Dr Michele. Patient fell last night. ROBERTA Objective Last Vital Signs Date Time Temp Pulse Resp B/P (MAP) Pulse Ox O2 Delivery O2 Flow Rate FiO2 02/02/18 13:04 124 92/62 02/02/18 12:00 97.7 20 96 97.7 02/02/18 09:38 Room Air 21 Laboratory Tests Test 02/02/18 07:35 White Blood Count 11.3 K/UL (4.8-10.8) H Red Blood Count 4.78 M/UL (4.70-6.10) Hemoglobin 13.7 G/DL (14.2-18.0) L Hematocrit 41.3 % (42.0-52.0) L Mean Corpuscular Volume 86 FL (80-99) Mean Corpuscular Hemoglobin 28.6 PG (27.0-31.0) Mean Corpuscular Hemoglobin Concent 33.0 G/DL (32.0-36.0) Red Cell Distribution Width 11.6 % (11.6-14.8) Platelet Count 176 K/UL (150-450) Mean Platelet Volume 8.2 FL (6.5-10.1) Neutrophils (%) (Auto) % (45.0-75.0) Lymphocytes (%) (Auto) % (20.0-45.0) Monocytes (%) (Auto) % (1.0-10.0) Eosinophils (%) (Auto) % (0.0-3.0) Basophils (%) (Auto) % (0.0-2.0) Differential Total Cells Counted 100 Neutrophils % (Manual) 88 % (45-75) H Lymphocytes % (Manual) 9 % (20-45) L Monocytes % (Manual) 2 % (1-10) Eosinophils % (Manual) 1 % (0-3) Basophils % (Manual) 0 % (0-2) Band Neutrophils 0 % (0-8) Platelet Estimate Adequate Platelet Morphology Normal Red Blood Cell Morphology Normal Sodium Level 136 MMOL/L (136-145) Potassium Level 3.8 MMOL/L (3.5-5.1) Chloride Level 102 MMOL/L (98-107) Carbon Dioxide Level 23 MMOL/L (21-32) Anion Gap 11 mmol/L (5-15) Blood Urea Nitrogen 20 mg/dL (7-18) H Creatinine 0.9 MG/DL (0.55-1.30) Estimat Glomerular Filtration Rate > 60 mL/min (>60) Glucose Level 286 MG/DL (74-106) H Calcium Level 9.1 MG/DL (8.5-10.1) Intake and Output 02/01/18 02/02/18 19:00 07:00 Intake Total 440 ml 150 ml Output Total 200 ml Balance 440 ml -50 ml Intake Oral 440 ml 150 ml Output Urine Total 200 ml # Voids 2 3 Objective General Appearance: WD/WN, no apparent distress, alert EENT: PERRL/EOMI, normal ENT inspection, TMs normal Neck: non-tender, normal alignment, supple, normal inspection Cardiovascular: normal peripheral pulses, normal rate, regular rhythm, no gallop/murmur, no JVD Respiratory/Chest: chest wall non-tender, lungs clear, normal breath sounds, no respiratory distress, no accessory muscle use Abdomen: normal bowel sounds, non tender, soft, no organomegaly, no mass Extremities: normal range of motion, non-tender 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 (2) HTN (hypertension) Assessment & Plan: Continue prn clonidine (3) Depression, major Assessment & Plan: Continue remeron and zyprexa (4) Syncope (5) Cerebral vascular accident Assessment & Plan: See MRI=no acute CVA-see neurology consult. (6) Elevated WBCs Assessment & Plan: Start ceftriaxone. Await ID consult. Urine culture pending. CXR stat (7) Fever Status: not improved Assessment/Plan Transfer to Med/Surg Magdy Church MD Feb 02, 2018 15:40
[2018-02-02] MEDS ORDERED: Miralax 17gm pkt ORAL PRN (16:30)
[2018-02-02] MEDS ORDERED: Morphine Sulfate 2mg/ml Inj(IV/IM USE ONLY) IVP PRN (16:30)
[2018-02-02] MEDS ORDERED: Promethazine/Codeine 5ml UD ORAL PRN (16:30)
--- NOTE | 2018-02-02 16:48 | General Progress Note ---
Assessment/Plan Status: stable Assessment/Plan # Anemia due to underlying chronic disease. --> Currently stable, no w/u required. Hgb above 13 # Leukocytosis, likely secondary to reactive process, seems to be resolved. # Deep venous thrombosis. The patient with a history of deep venous thrombosis before. --> Imaging has been reviewed. No evidence of deep venous thrombosis at this time. # Thrombocytopenia likely related to reactive process --> monitor closely for improvement --> hold off any further anticoagulants # Diabetes mellitus. A1c goal less than 7. --> 01/30 A1C of 8.8 # Hyperlipidemia. # Protein-calorie malnutrition. # Syncopal episode. Cardiology and Neurology Service consulted. # Hypertension. Systolic blood pressure goal less than 140. The time the note was entered does not necessarily correspond to the time the patient was seen. Subjective Date patient seen: Feb 02, 2018 ROS Limited/Unobtainable: Yes Hematologic/Lymphatic: Reports: anemia Allergies: Coded Allergies: No Known Allergies (Unverified , 04/12/17) All Systems: reviewed and negative except above Subjective Pt awake and alert. S/P fall this morning. CT head today shows no acute intracranial or skull fractures. Objective Last 24 Hour Vital Signs Date Time Temp Pulse Resp B/P (MAP) Pulse Ox O2 Delivery O2 Flow Rate FiO2 02/02/18 13:04 124 92/62 02/02/18 12:00 97.7 124 20 92/62 (72) 96 97.7 02/02/18 09:38 98 18 Room Air 21 02/02/18 09:00 Room Air 02/02/18 08:00 97.7 59 20 96/62 (73) 100 97.7 02/02/18 06:00 100.9 110 20 102/56 (71) 98 100.9 02/02/18 00:00 98.4 82 20 111/71 (84) 97 98.4 02/01/18 21:39 97.4 02/01/18 21:00 Room Air 02/01/18 20:40 97.4 02/01/18 20:16 96 Room Air 21 02/01/18 20:00 99.1 83 20 115/75 (88) 96 99.1 02/01/18 20:00 80 18 Room Air 21 Intake and Output 02/01/18 02/02/18 19:00 07:00 Intake Total 440 ml 150 ml Output Total 200 ml Balance 440 ml -50 ml Intake Oral 440 ml 150 ml Output Urine Total 200 ml # Voids 2 3 Laboratory Tests 02/02/18 07:35: White Blood Count 11.3H, Red Blood Count 4.78, Hemoglobin 13.7L, Hematocrit 41.3L, Mean Corpuscular Volume 86, Mean Corpuscular Hemoglobin 28.6, Mean Corpuscular Hemoglobin Concent 33.0, Red Cell Distribution Width 11.6, Platelet Count 176, Mean Platelet Volume 8.2, Neutrophils (%) (Auto) , Lymphocytes (%) ( Auto) , Monocytes (%) (Auto) , Eosinophils (%) (Auto) , Basophils (%) (Auto) , Differential Total Cells Counted 100, Neutrophils % (Manual) 88H, Lymphocytes % (Manual) 9L, Monocytes % (Manual) 2, Eosinophils % (Manual) 1, Basophils % ( Manual) 0, Band Neutrophils 0, Platelet Estimate Adequate, Platelet Morphology Normal, Red Blood Cell Morphology Normal, Sodium Level 136, Potassium Level 3.8 , Chloride Level 102, Carbon Dioxide Level 23, Anion Gap 11, Blood Urea Nitrogen 20H, Creatinine 0.9, Estimat Glomerular Filtration Rate > 60, Glucose Level 286H, Calcium Level 9.1 Height (Feet): 5 Height (Inches): 10.00 Weight (Pounds): 138 General Appearance: no apparent distress, alert EENT: PERRL/EOMI Cardiovascular: tachycardia, irregularly irregular Respiratory/Chest: no respiratory distress Abdomen: normal bowel sounds Jonathan Morrow MD Feb 02, 2018 16:48
--- NOTE | 2018-02-02 17:50 | Cardiology Progress Note ---
Assessment/Plan Assessment/Plan Assessment Diabetes DVT Depression Hyperglycemia Syncope Confusion AFIB Plan Echo reviewed - no findings to suggest cardiac syncope -Glucose control HgA1c 8.8 -Etiology may be from autonomic dysfunction from longstanding poorly controlled diabetes -May benefit from compression stockings and isometric exercises. -Syncope does not appear to be from an aural/balance etiology, CT head negative. -Telemetry to monitor for arrhythmias - AFIB confirmed -EEG, Neuro consult appreciated -MRI reviewed, possible small infarct -Continue plavix -Physical therapy -Aspiration precautions -Start metoprolol 50 BID for rate control -Xarelto for anticoagulation -If unstable will need to SRINIVAS/cardiovert -Amiodarone IV push -Goal heart rate <110 - Subjective Subjective No acute events, no distress, vitals stable. Asleep, irritable Objective Last 24 Hour Vital Signs Date Time Temp Pulse Resp B/P (MAP) Pulse Ox O2 Delivery O2 Flow Rate FiO2 02/02/18 13:04 124 92/62 02/02/18 12:00 97.7 124 20 92/62 (72) 96 97.7 02/02/18 09:38 98 18 Room Air 21 02/02/18 09:00 Room Air 02/02/18 08:00 97.7 59 20 96/62 (73) 100 97.7 02/02/18 06:00 100.9 110 20 102/56 (71) 98 100.9 02/02/18 00:00 98.4 82 20 111/71 (84) 97 98.4 02/01/18 21:39 97.4 02/01/18 21:00 Room Air 02/01/18 20:40 97.4 02/01/18 20:16 96 Room Air 21 02/01/18 20:00 99.1 83 20 115/75 (88) 96 99.1 02/01/18 20:00 80 18 Room Air 21 General Appearance: no apparent distress, mild distress, moderate distress EENT: PERRL/EOMI, normal ENT inspection Rhythm: Afib Cardiovascular: normal peripheral pulses, regularly irregular Respiratory/Chest: chest wall non-tender, lungs clear, normal breath sounds Abdomen: normal bowel sounds, non tender Extremities: normal range of motion, non-tender 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, no motor/sensory deficits Intake and Output 02/01/18 02/02/18 19:00 07:00 Intake Total 440 ml 150 ml Output Total 200 ml Balance 440 ml -50 ml Intake Oral 440 ml 150 ml Output Urine Total 200 ml # Voids 2 3 Laboratory Tests Test 02/02/18 07:35 White Blood Count 11.3 K/UL (4.8-10.8) H Red Blood Count 4.78 M/UL (4.70-6.10) Hemoglobin 13.7 G/DL (14.2-18.0) L Hematocrit 41.3 % (42.0-52.0) L Mean Corpuscular Volume 86 FL (80-99) Mean Corpuscular Hemoglobin 28.6 PG (27.0-31.0) Mean Corpuscular Hemoglobin Concent 33.0 G/DL (32.0-36.0) Red Cell Distribution Width 11.6 % (11.6-14.8) Platelet Count 176 K/UL (150-450) Mean Platelet Volume 8.2 FL (6.5-10.1) Neutrophils (%) (Auto) % (45.0-75.0) Lymphocytes (%) (Auto) % (20.0-45.0) Monocytes (%) (Auto) % (1.0-10.0) Eosinophils (%) (Auto) % (0.0-3.0) Basophils (%) (Auto) % (0.0-2.0) Differential Total Cells Counted 100 Neutrophils % (Manual) 88 % (45-75) H Lymphocytes % (Manual) 9 % (20-45) L Monocytes % (Manual) 2 % (1-10) Eosinophils % (Manual) 1 % (0-3) Basophils % (Manual) 0 % (0-2) Band Neutrophils 0 % (0-8) Platelet Estimate Adequate Platelet Morphology Normal Red Blood Cell Morphology Normal Sodium Level 136 MMOL/L (136-145) Potassium Level 3.8 MMOL/L (3.5-5.1) Chloride Level 102 MMOL/L (98-107) Carbon Dioxide Level 23 MMOL/L (21-32) Anion Gap 11 mmol/L (5-15) Blood Urea Nitrogen 20 mg/dL (7-18) H Creatinine 0.9 MG/DL (0.55-1.30) Estimat Glomerular Filtration Rate > 60 mL/min (>60) Glucose Level 286 MG/DL (74-106) H Calcium Level 9.1 MG/DL (8.5-10.1) Davy Smyth M.D. Feb 02, 2018 17:50
[2018-02-02] MEDS ORDERED: Xarelto 10mg tab ORAL SCH (18:30)
[2018-02-02] MEDS: NS w/KCl 20mEq 1,000 ML IV SCH (18:49)
[2018-02-02] MEDS ORDERED: NovoLOG Insulin Flexpen SUBQ ONE (19:00)
[2018-02-02] MEDS ORDERED: Heparin 5000 units/ml inj SUBQ SCH (21:00)
[2018-02-02] MEDS: cefTRIAXone 1 GM in D5W 55 ML IVPB SCH (21:29)
[2018-02-02] MEDS: OLANZapine 2.5mg tab ORAL SCH (21:29)
[2018-02-03] VITALS: BP 96/57
[2018-02-03 04:00] VITALS: BP 102/63
[2018-02-03 04:59] LABS: BASOPHILS % (AUTO) 0.8 % (0.0-2.0); EOSINOPHILS % (AUTO) 3.8 % (0.0-3.0); HEMATOCRIT 37.7 % (42.0-52.0); HEMOGLOBIN 12.9 G/DL (14.2-18.0); LYMPHOCYTES % (AUTO) 15.2 % (20.0-45.0); MEAN CORPUSCULAR VOLUME 86 FL (80-99); MONOCYTES % (AUTO) 5.4 % (1.0-10.0); NEUTROPHILS % (AUTO) 74.8 % (45.0-75.0); PLATELET COUNT 145 K/UL (150-450); RED BLOOD COUNT 4.38 M/UL (4.70-6.10); RED CELL DISTRIBUTION WIDTH 11.3 % (11.6-14.8); WHITE BLOOD COUNT 5.7 K/UL (4.8-10.8)
[2018-02-03 05:14] LABS: ANION GAP 8 mmol/L (5-15); BLOOD UREA NITROGEN 16 mg/dL (7-18); CALCIUM 8.7 MG/DL (8.5-10.1); CARBON DIOXIDE 25 MMOL/L (21-32); CHLORIDE 103 MMOL/L (98-107); CREATININE 0.6 MG/DL (0.55-1.30); POTASSIUM 3.9 MMOL/L (3.5-5.1); SODIUM 136 MMOL/L (136-145)
[2018-02-03] MEDS: NovoLOG Insulin Flexpen SUBQ SCH ×4 (06:01→21:40)
[2018-02-03] MEDS ORDERED: NovoLOG Insulin Flexpen SUBQ SCH (06:30)
[2018-02-03] MEDS: NS w/KCl 20mEq 1,000 ML IV SCH (07:45)
[2018-02-03 08:04] VITALS: BP 119/71
[2018-02-03] MEDS ORDERED: Metoprolol Succinate XL 50mg tab ORAL SCH (09:00)
--- NOTE | 2018-02-03 09:03 | Diagnostic Imaging Report ---
. Indication: Cough Technique: One view of the chest Comparison: 01/28/2018 Findings: Lungs and pleural spaces are clear. Heart size is normal . No significant change Impression: No acute process This agrees with the preliminary interpretation provided overnight by [facility] teleradiology service.
[2018-02-03] MEDS: Metoprolol Succinate XL 50mg tab ORAL SCH (09:15)
--- NOTE | 2018-02-03 09:51 | Consultation ---
History of Present Illness General Date patient seen: Feb 03, 2018 Chief Complaint: Syncope Referring physician: Ryne Ngo Reason for Consultation: Fever and Leukocytosis Present Illness HPI Mr. Bateman is a 62 yo male with PMHx of DM2, HTN, Depression and DVT who presenting from a rehab center on 01/28/18 with syncope. He has been in the hospital getting syncope work up. He developed a fever of 100.9 on 02/02/18 and his WBC count increased to 11. 3. He was started on Ceftriaxone for possible UTI. UCx/UA has not been obtained as patent has been uncooperative with cultures. I spoke with him and he reports that he does not really know what happened. He left his facility AMA and had a fainting spell and was found in the street. He reports that he has had UTIs in the past. He reports having some headache but no dysuria or hematuria. Denies cough, CP, SOB, Fever, N/V/D and abdominal pain. He does reports some chill for the last few days. He said he would give a urine sample for UA. SocHx: No E/T/D FamHx: Noncontributory. Allergies: Coded Allergies: No Known Allergies (Unverified , 04/12/17) Medication History Scheduled Gabapentin* (Gabapentin*), 100 MG ORAL THREE TIMES A DAY, (Reported) Insulin Glargine (Lantus), 20 SUBQ BEDTIME, (Reported) Insulin Glargine (Lantus), 30 SUBQ DAILY, (Reported) Metformin Hcl* (Metformin Hcl*), 500 MG ORAL TWICE A DAY, (Reported) Mirtazapine* (Remeron*), 7.5 MG ORAL BEDTIME, (Reported) Multivitamin With Minerals (Multivitamins With Minerals*), 1 TAB ORAL DAILY, ( Reported) Olanzapine* (Zyprexa*), 2.5 MG ORAL QHS, (Reported) Scheduled PRN Acetaminophen* (Acetaminophen 325MG Tablet*), 325 MG ORAL Q6H PRN for Fever/ Headache/Mild Pain, (Reported) Diphenhydramine Hcl* (Benadryl*), 25 MG ORAL Q4HR PRN for Itching, (Reported) Glucagon,Human Recombinant (Glucagen), 1 MG IJ DAILY PRN for Hypoglycemia, ( Reported) Hydrocodone Bit/Acetaminophen 5-325* ([place] 5-325*), 1 TAB ORAL Q12HR PRN for Severe Pain (Pain Scale 7-10), (Reported) Ibuprofen* (Motrin*), 400 MG ORAL Q6HR PRN for Mild Pain (Pain Scale 1-3), ( Reported) Magnesium Hydroxide* (Milk Of Magnesia*), 30 ML ORAL DAILY PRN for Constipation, (Reported) Tramadol Hcl* (Ultram*), 50 MG ORAL Q12 PRN for Moderate Pain (Pain Scale 4-6), (Reported) Discontinued Medications Acetaminophen* (Acetaminophen*), 325 MG ORAL Q6H PRN for Mild Pain/Temp > 100.5, (Reported) Discontinued Reason: Prescription changed Amoxicillin (Amoxicillin), 500 MG ORAL TID, (Reported) Discontinued Reason: Therapy completed Bacitracin (Bacitracin), 1 APPLIC TOPIC BID Discontinued Reason: Therapy completed Multivitamins* (Multivitamins*), 1 TAB ORAL DAILY, (Reported) Discontinued Reason: Prescription changed Olanzapine* (Zyprexa*), 5 MG ORAL DAILY, (Reported) Discontinued Reason: Prescription changed Patient History Healthcare decision maker Resuscitation status Full Code Advanced Directive on File Family History Family History: (1) Head injury (2) Troponin level elevated (3) Unintentional weight loss Review of Systems All Other Systems: negative except mentioned in HPI Physical Exam Last 24 Hour Vital Signs Date Time Temp Pulse Resp B/P (MAP) Pulse Ox O2 Delivery O2 Flow Rate FiO2 02/03/18 09:15 72 119/71 02/03/18 08:04 97.7 72 21 119/71 (87) 97 97.7 02/03/18 08:00 Room Air 02/03/18 07:54 72 02/03/18 06:25 70 02/03/18 04:00 Room Air 02/03/18 04:00 98.7 70 20 102/63 (76) 95 98.7 02/03/18 00:00 99.0 72 20 96/57 (70) 96 99.0 02/03/18 00:00 Room Air 02/02/18 22:31 99.0 02/02/18 21:32 100.2 02/02/18 20:00 Room Air 02/02/18 20:00 74 18 Room Air 21 7/29/18 20:00 75 02/02/18 20:00 100.2 75 20 93/57 (69) 96 100.2 02/02/18 16:30 98.2 82 20 101/64 (76) 97 98.2 02/02/18 16:00 Room Air 02/02/18 15:25 81 02/02/18 15:17 96 02/02/18 14:38 164 02/02/18 14:00 Room Air 02/02/18 13:30 150 02/02/18 13:25 98.2 130 18 97/54 (68) 94 98.2 02/02/18 13:04 124 92/62 02/02/18 12:00 97.7 124 20 92/62 (72) 96 97.7 Intake and Output 02/02/18 02/03/18 19:00 07:00 Intake Total 575 ml 842.5 ml Output Total 131 ml 0 ml Balance 444 ml 842.5 ml Intake Oral 500 ml 0 ml IV Total 75 ml 842.5 ml Output Urine Total 0 ml 0 ml Other 131 ml Laboratory Tests Test 02/03/18 03:40 White Blood Count 5.7 K/UL (4.8-10.8) Red Blood Count 4.38 M/UL (4.70-6.10) L Hemoglobin 12.9 G/DL (14.2-18.0) L Hematocrit 37.7 % (42.0-52.0) L Mean Corpuscular Volume 86 FL (80-99) Mean Corpuscular Hemoglobin 29.4 PG (27.0-31.0) Mean Corpuscular Hemoglobin Concent 34.3 G/DL (32.0-36.0) Red Cell Distribution Width 11.3 % (11.6-14.8) L Platelet Count 145 K/UL (150-450) L Mean Platelet Volume 8.1 FL (6.5-10.1) Neutrophils (%) (Auto) 74.8 % (45.0-75.0) Lymphocytes (%) (Auto) 15.2 % (20.0-45.0) L Monocytes (%) (Auto) 5.4 % (1.0-10.0) Eosinophils (%) (Auto) 3.8 % (0.0-3.0) H Basophils (%) (Auto) 0.8 % (0.0-2.0) Sodium Level 136 MMOL/L (136-145) Potassium Level 3.9 MMOL/L (3.5-5.1) Chloride Level 103 MMOL/L (98-107) Carbon Dioxide Level 25 MMOL/L (21-32) Anion Gap 8 mmol/L (5-15) Blood Urea Nitrogen 16 mg/dL (7-18) Creatinine 0.6 MG/DL (0.55-1.30) Estimat Glomerular Filtration Rate > 60 mL/min (>60) Glucose Level 180 MG/DL (74-106) #H Calcium Level 8.7 MG/DL (8.5-10.1) Height (Feet): 5 Height (Inches): 10.00 Weight (Pounds): 138 Medications Current Medications Medications (Trade) Dose Ordered Sig/Elyssa Route PRN Reason Start Time Stop Time Status Last Admin Dose Admin Acetaminophen (Tylenol) 650 mg Q4H PRN ORAL fever 02/02/18 14:24 02/27/18 14:23 02/02/18 21:32 Al Hydroxide/Mg Hydroxide (Mylanta II) 30 ml Q6H PRN ORAL dyspepsia 02/02/18 14:24 02/27/18 14:23 Ceftriaxone Sodium 1 gm/ Dextrose 55 ml @ 110 mls/hr Q24H IVPB 02/02/18 16:00 02/09/18 15:59 02/02/18 21:29 Clonidine HCl (Catapres Tab) 0.1 mg Q4H PRN ORAL For SBP>160 02/02/18 14:24 02/27/18 14:23 Clopidogrel Bisulfate (Plavix) 75 mg DAILY ORAL 02/03/18 09:00 03/02/18 08:59 02/03/18 09:15 Dextrose (Dextrose 50%) 25 ml STAT PRN IV Hypoglycemia 02/02/18 14:25 02/27/18 14:24 Dextrose (Dextrose 50%) 50 ml STAT PRN IV Hypoglycemia 02/02/18 14:25 02/27/18 14:24 Fluoxetine HCl (PROzac) 20 mg DAILY ORAL 02/03/18 09:00 03/02/18 12:29 02/03/18 09:15 Gabapentin (Neurontin) 100 mg THREE TIMES A DAY ORAL 7/29/18 18:00 02/28/18 08:59 02/03/18 09:15 Insulin Aspart (NovoLOG) BEFORE MEALS AND HS SUBQ 02/02/18 16:30 02/28/18 06:29 02/03/18 06:01 Lorazepam (Ativan 2mg/ml 1ml) 0.5 mg Q4H PRN IV For Anxiety 02/02/18 14:30 02/04/18 14:29 Metoprolol Succinate (Toprol XL) 50 mg DAILY ORAL 02/03/18 09:00 03/05/18 08:59 02/03/18 09:15 Mirtazapine (Remeron) 7.5 mg BEDTIME ORAL 02/02/18 21:00 02/27/18 22:29 02/02/18 21:29 Morphine Sulfate (Morphine Sulfate) 1 mg Q4H PRN IVP For Pain 702/02/18 16:30 02/04/18 16:29 Nitroglycerin (Ntg) 0.4 mg Q5M X 3 DOSES PRN SL Prn Chest Pain 02/02/18 14:15 02/27/18 22:14 Olanzapine (ZyPREXA) 2.5 mg QHS ORAL 02/02/18 21:00 02/27/18 22:29 02/02/18 21:29 Ondansetron HCl (Zofran) 4 mg Q6H PRN IVP Nausea & Vomiting 02/02/18 16:15 02/27/18 22:14 Polyethylene Glycol (Miralax) 17 gm HSPRN PRN ORAL Constipation 02/02/18 16:30 02/27/18 16:29 Promethazine HCl/ Codeine (Phenergan with Codeine) 5 ml Q6H PRN ORAL For Cough 02/02/18 16:30 02/28/18 16:29 Sodium Chloride 1,000 ml @ 75 mls/hr [id number] IV 02/02/18 16:00 03/04/18 15:59 02/03/18 07:45 Temazepam (Restoril) 15 mg HSPRN PRN ORAL Insomnia 02/02/18 18:00 02/04/18 17:59 Objective Narrative Gen: NAD, Think almost cachectic male, alert HEENT: NCAT, MMM, EOMI, PERRL, No Oral lesion, no scleral iterus NECK: full range of motion, supple, no meningismus, No LAD, No JVD LUNGS: CTAB, No W/C, No Accessory muscle use CARDS: RRR, S1, S2, No M/R/G, ABD: Soft, NT, ND, No R/G, + BS, No HSM, No Masses Ext: C/C/E, Pulses 2+ B/L (DP, Rad): NEURO: A/O x 4, Strength and Sensation Grossly intact PSYCH: mood/affect normal SKIN: warm/dry, No rashes, Abrasion on left knee Assessment/Plan Assessment/Plan Imaging CXR 02/02/18 - No acute process CT and MRI - No finding suggesting infection. Mr. Bateman is a 62 yo male with PMHx of DM2, HTN, Depression and DVT who presenting from a rehab center on 01/28/18 with syncope. On 02/02/18 he deveeloepd fever and mild leukocytosis Cultures UCx - Pending Antibiotics Ceftraixone 02/02/18 --> # Fever and leukocytosis - Now resolved with Ceftriaxone - Unclear source. No signs of PNA, UTI possible no skin lesions. Plan - Continue Ceftriaxone #2 - f/u UA/Cx - Monitor clinically Constjanelle,Davy Tripp Feb 03, 2018 09:51
--- NOTE | 2018-02-03 11:37 | Pulmonology Progress Note ---
Assessment/Plan Problems: (1) Atrial fibrillation (2) Acute encephalopathy (3) Depression (4) Psychosis (5) Diabetes Assessment/Plan sinus rhythm now mri : acute cva all reviewed d/w psychiatry f/u neuro recommendation echo noted, EF of 45% sliding scale diabetic diet Subjective Interval Events: agitated at times Constitutional: Reports: no symptoms Allergies: Coded Allergies: No Known Allergies (Unverified , 04/12/17) Objective Last 24 Hour Vital Signs Date Time Temp Pulse Resp B/P (MAP) Pulse Ox O2 Delivery O2 Flow Rate FiO2 02/03/18 09:28 71 18 Room Air 21 02/03/18 09:15 72 119/71 02/03/18 08:04 97.7 72 21 119/71 (87) 97 97.7 02/03/18 08:00 Room Air 02/03/18 07:54 72 02/03/18 06:25 70 02/03/18 04:00 Room Air 02/03/18 04:00 98.7 70 20 102/63 (76) 95 98.7 02/03/18 00:00 99.0 72 20 96/57 (70) 96 99.0 02/03/18 00:00 Room Air 02/02/18 22:31 99.0 02/02/18 21:32 100.2 02/02/18 20:00 Room Air 02/02/18 20:00 74 18 Room Air 21 02/02/18 20:00 75 02/02/18 20:00 100.2 75 20 93/57 (69) 96 100.2 02/02/18 16:30 98.2 82 20 101/64 (76) 97 98.2 02/02/18 16:00 Room Air 02/02/18 15:25 81 02/02/18 15:17 96 02/02/18 14:38 164 02/02/18 14:00 Room Air 02/02/18 13:30 150 02/02/18 13:25 98.2 130 18 97/54 (68) 94 98.2 02/02/18 13:04 124 92/62 02/02/18 12:00 97.7 124 20 92/62 (72) 96 97.7 Intake and Output 02/02/18 02/03/18 19:00 07:00 Intake Total 575 ml 842.5 ml Output Total 131 ml 0 ml Balance 444 ml 842.5 ml Intake Oral 500 ml 0 ml IV Total 75 ml 842.5 ml Output Urine Total 0 ml 0 ml Other 131 ml General Appearance: cachetic HEENT: normocephalic, atraumatic Respiratory/Chest: chest wall non-tender, lungs clear Cardiovascular: normal peripheral pulses, normal rate Abdomen: normal bowel sounds, soft, non tender Genitourinary: normal external genitalia Extremities: no cyanosis Skin: no rash 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 Laboratory Tests 02/03/18 03:40: White Blood Count 5.7, Red Blood Count 4.38L, Hemoglobin 12.9L, Hematocrit 37.7L , Mean Corpuscular Volume 86, Mean Corpuscular Hemoglobin 29.4, Mean Corpuscular Hemoglobin Concent 34.3, Red Cell Distribution Width 11.3L, Platelet Count 145L, Mean Platelet Volume 8.1, Neutrophils (%) (Auto) 74.8, Lymphocytes (%) (Auto) 15.2L, Monocytes (%) (Auto) 5.4, Eosinophils (%) (Auto) 3.8H, Basophils (%) (Auto) 0.8, Sodium Level 136, Potassium Level 3.9, Chloride Level 103, Carbon Dioxide Level 25, Anion Gap 8, Blood Urea Nitrogen 16, Creatinine 0.6, Estimat Glomerular Filtration Rate > 60, Glucose Level 180#H, Calcium Level 8.7 Current Medications Medications (Trade) Dose Ordered Sig/Elyssa Route PRN Reason Start Time Stop Time Status Last Admin Dose Admin Acetaminophen (Tylenol) 650 mg Q4H PRN ORAL fever 02/02/18 14:24 02/27/18 14:23 02/02/18 21:32 Al Hydroxide/Mg Hydroxide (Mylanta II) 30 ml Q6H PRN ORAL dyspepsia 02/02/18 14:24 02/27/18 14:23 Ceftriaxone Sodium 1 gm/ Dextrose 55 ml @ 110 mls/hr Q24H IVPB 02/02/18 16:00 02/09/18 15:59 02/02/18 21:29 Clonidine HCl (Catapres Tab) 0.1 mg Q4H PRN ORAL For SBP>160 02/02/18 14:24 02/27/18 14:23 Clopidogrel Bisulfate (Plavix) 75 mg DAILY ORAL 02/03/18 09:00 03/02/18 08:59 02/03/18 09:15 Dextrose (Dextrose 50%) 25 ml STAT PRN IV Hypoglycemia 02/02/18 14:25 02/27/18 14:24 Dextrose (Dextrose 50%) 50 ml STAT PRN IV Hypoglycemia 02/02/18 14:25 02/27/18 14:24 Fluoxetine HCl (PROzac) 20 mg DAILY ORAL 02/03/18 09:00 03/02/18 12:29 02/03/18 09:15 Gabapentin (Neurontin) 100 mg THREE TIMES A DAY ORAL 02/02/18 18:00 02/28/18 08:59 02/03/18 09:15 Insulin Aspart (NovoLOG) BEFORE MEALS AND HS SUBQ 02/02/18 16:30 02/28/18 06:29 02/03/18 06:01 Lorazepam (Ativan 2mg/ml 1ml) 0.5 mg Q4H PRN IV For Anxiety 02/02/18 14:30 02/04/18 14:29 Metoprolol Succinate (Toprol XL) 50 mg DAILY ORAL 02/03/18 09:00 03/05/18 08:59 02/03/18 09:15 Mirtazapine (Remeron) 7.5 mg BEDTIME ORAL 02/02/18 21:00 02/27/18 22:29 02/02/18 21:29 Morphine Sulfate (Morphine Sulfate) 1 mg Q4H PRN IVP For Pain 7-02/02/18 16:30 02/04/18 16:29 Nitroglycerin (Ntg) 0.4 mg Q5M X 3 DOSES PRN SL Prn Chest Pain 02/02/18 14:15 02/27/18 22:14 Olanzapine (ZyPREXA) 2.5 mg QHS ORAL 02/02/18 21:00 02/27/18 22:29 02/02/18 21:29 Ondansetron HCl (Zofran) 4 mg Q6H PRN IVP Nausea & Vomiting 02/02/18 16:15 02/27/18 22:14 Polyethylene Glycol (Miralax) 17 gm HSPRN PRN ORAL Constipation 02/02/18 16:30 02/27/18 16:29 Promethazine HCl/ Codeine (Phenergan with Codeine) 5 ml Q6H PRN ORAL For Cough 02/02/18 16:30 02/28/18 16:29 Sodium Chloride 1,000 ml @ 75 mls/hr [id number] IV 02/02/18 16:00 03/04/18 15:59 02/03/18 07:45 Temazepam (Restoril) 15 mg HSPRN PRN ORAL Insomnia 02/02/18 18:00 02/04/18 17:59 Dontae Joshua MD Feb 03, 2018 11:37
[2018-02-03 11:57] VITALS: BP 117/73
--- NOTE | 2018-02-03 12:03 | General Progress Note ---
Assessment/Plan Status: stable Assessment/Plan Schizophrenia zyprexa provided ro/st prozac 20mg dc sitter Subjective Date patient seen: Feb 03, 2018 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: Reports: anxiety, depressed, emotional problems Allergies: Coded Allergies: No Known Allergies (Unverified , 04/12/17) All Systems: reviewed and negative except above Subjective irritable somewhat uncooperative. the pt fell yesterday. he is the same compliant with meds sitter at bedside Objective Last 24 Hour Vital Signs Date Time Temp Pulse Resp B/P (MAP) Pulse Ox O2 Delivery O2 Flow Rate FiO2 02/03/18 11:57 97.5 72 20 117/73 (88) 97 97.5 02/03/18 09:28 71 18 Room Air 21 02/03/18 09:15 72 119/71 02/03/18 08:04 97.7 72 21 119/71 (87) 97 97.7 02/03/18 08:00 Room Air 02/03/18 07:54 72 02/03/18 06:25 70 02/03/18 04:00 Room Air 02/03/18 04:00 98.7 70 20 102/63 (76) 95 98.7 02/03/18 00:00 99.0 72 20 96/57 (70) 96 99.0 02/03/18 00:00 Room Air 02/02/18 22:31 99.0 02/02/18 21:32 100.2 02/02/18 20:00 Room Air 02/02/18 20:00 74 18 Room Air 21 02/02/18 20:00 75 02/02/18 20:00 100.2 75 20 93/57 (69) 96 100.2 02/02/18 16:30 98.2 82 20 101/64 (76) 97 98.2 02/02/18 16:00 Room Air 02/02/18 15:25 81 02/02/18 15:17 96 02/02/18 14:38 164 02/02/18 14:00 Room Air 02/02/18 13:30 150 02/02/18 13:25 98.2 130 18 97/54 (68) 94 98.2 02/02/18 13:04 124 92/62 Intake and Output 02/02/18 02/03/18 19:00 07:00 Intake Total 575 ml 842.5 ml Output Total 131 ml 0 ml Balance 444 ml 842.5 ml Intake Oral 500 ml 0 ml IV Total 75 ml 842.5 ml Output Urine Total 0 ml 0 ml Other 131 ml Laboratory Tests 02/03/18 03:40: White Blood Count 5.7, Red Blood Count 4.38L, Hemoglobin 12.9L, Hematocrit 37.7L , Mean Corpuscular Volume 86, Mean Corpuscular Hemoglobin 29.4, Mean Corpuscular Hemoglobin Concent 34.3, Red Cell Distribution Width 11.3L, Platelet Count 145L, Mean Platelet Volume 8.1, Neutrophils (%) (Auto) 74.8, Lymphocytes (%) (Auto) 15.2L, Monocytes (%) (Auto) 5.4, Eosinophils (%) (Auto) 3.8H, Basophils (%) (Auto) 0.8, Sodium Level 136, Potassium Level 3.9, Chloride Level 103, Carbon Dioxide Level 25, Anion Gap 8, Blood Urea Nitrogen 16, Creatinine 0.6, Estimat Glomerular Filtration Rate > 60, Glucose Level 180#H, Calcium Level 8.7 Height (Feet): 5 Height (Inches): 10.00 Weight (Pounds): 138 General Appearance: no apparent distress, alert Neurologic: responsive, depressed affect Britney Chaudhary MD Feb 03, 2018 12:03
[2018-02-03] MEDS ORDERED: OLANZapine 2.5mg tab ORAL PRN (12:30)
--- NOTE | 2018-02-03 12:58 | Internal Med Progress Note ---
Subjective Date of Service: Feb 03, 2018 Physician Name Magdy Church Attending Physician Jose Michele MD Current Medications Medications (Trade) Dose Ordered Sig/Elyssa Route PRN Reason Start Time Stop Time Status Last Admin Dose Admin Acetaminophen (Tylenol) 650 mg Q4H PRN ORAL fever 02/02/18 14:24 02/27/18 14:23 02/02/18 21:32 Al Hydroxide/Mg Hydroxide (Mylanta II) 30 ml Q6H PRN ORAL dyspepsia 02/02/18 14:24 02/27/18 14:23 Ceftriaxone Sodium 1 gm/ Dextrose 55 ml @ 110 mls/hr Q24H IVPB 02/02/18 16:00 02/09/18 15:59 02/02/18 21:29 Clonidine HCl (Catapres Tab) 0.1 mg Q4H PRN ORAL For SBP>160 02/02/18 14:24 02/27/18 14:23 Clopidogrel Bisulfate (Plavix) 75 mg DAILY ORAL 02/03/18 09:00 03/02/18 08:59 02/03/18 09:15 Dextrose (Dextrose 50%) 25 ml STAT PRN IV Hypoglycemia 02/02/18 14:25 02/27/18 14:24 Dextrose (Dextrose 50%) 50 ml STAT PRN IV Hypoglycemia 02/02/18 14:25 02/27/18 14:24 Fluoxetine HCl (PROzac) 20 mg DAILY ORAL 02/03/18 09:00 03/02/18 12:29 02/03/18 09:15 Gabapentin (Neurontin) 100 mg THREE TIMES A DAY ORAL 02/02/18 18:00 02/28/18 08:59 02/03/18 12:29 Insulin Aspart (NovoLOG) BEFORE MEALS AND HS SUBQ 02/02/18 16:30 02/28/18 06:29 02/03/18 12:31 Lorazepam (Ativan 2mg/ml 1ml) 0.5 mg Q4H PRN IV For Anxiety 02/02/18 14:30 02/04/18 14:29 Metoprolol Succinate (Toprol XL) 50 mg DAILY ORAL 02/03/18 09:00 03/05/18 08:59 02/03/18 09:15 Mirtazapine (Remeron) 7.5 mg BEDTIME ORAL 02/02/18 21:00 02/27/18 22:29 02/02/18 21:29 Morphine Sulfate (Morphine Sulfate) 1 mg Q4H PRN IVP For Pain 7-02/02/18 16:30 02/04/18 16:29 Nitroglycerin (Ntg) 0.4 mg Q5M X 3 DOSES PRN SL Prn Chest Pain 02/02/18 14:15 02/27/18 22:14 Olanzapine (ZyPREXA) 2.5 mg Q6H PRN ORAL agitation 02/03/18 12:30 03/05/18 12:29 Olanzapine (ZyPREXA) 2.5 mg QHS ORAL 02/02/18 21:00 02/27/18 22:29 02/02/18 21:29 Ondansetron HCl (Zofran) 4 mg Q6H PRN IVP Nausea & Vomiting 02/02/18 16:15 02/27/18 22:14 Polyethylene Glycol (Miralax) 17 gm HSPRN PRN ORAL Constipation 02/02/18 16:30 02/27/18 16:29 Promethazine HCl/ Codeine (Phenergan with Codeine) 5 ml Q6H PRN ORAL For Cough 02/02/18 16:30 02/28/18 16:29 Sodium Chloride 1,000 ml @ 75 mls/hr [id number] IV 02/02/18 16:00 03/04/18 15:59 02/03/18 07:45 Allergies: Coded Allergies: No Known Allergies (Unverified , 04/12/17) ROS Limited/Unobtainable: No Constitutional: Reports: no symptoms HEENT: Reports: no symptoms Cardiovascular: Reports: no symptoms Respiratory: Reports: no symptoms Gastrointestinal/Abdominal: Reports: no symptoms Genitourinary: Reports: no symptoms 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: Reports: no symptoms Subjective 62 YO M admitted with chief complaint of syncope. Now atrial fibrillation. Cover for Int Shaun-Dr Michele. Refusing to give urine sample. ROBERTA Objective Last Vital Signs Date Time Temp Pulse Resp B/P (MAP) Pulse Ox O2 Delivery O2 Flow Rate FiO2 02/03/18 12:00 Room Air 02/03/18 11:57 97.5 72 20 117/73 (88) 97 97.5 02/03/18 09:28 21 Laboratory Tests Test 02/03/18 03:40 White Blood Count 5.7 K/UL (4.8-10.8) Red Blood Count 4.38 M/UL (4.70-6.10) L Hemoglobin 12.9 G/DL (14.2-18.0) L Hematocrit 37.7 % (42.0-52.0) L Mean Corpuscular Volume 86 FL (80-99) Mean Corpuscular Hemoglobin 29.4 PG (27.0-31.0) Mean Corpuscular Hemoglobin Concent 34.3 G/DL (32.0-36.0) Red Cell Distribution Width 11.3 % (11.6-14.8) L Platelet Count 145 K/UL (150-450) L Mean Platelet Volume 8.1 FL (6.5-10.1) Neutrophils (%) (Auto) 74.8 % (45.0-75.0) Lymphocytes (%) (Auto) 15.2 % (20.0-45.0) L Monocytes (%) (Auto) 5.4 % (1.0-10.0) Eosinophils (%) (Auto) 3.8 % (0.0-3.0) H Basophils (%) (Auto) 0.8 % (0.0-2.0) Sodium Level 136 MMOL/L (136-145) Potassium Level 3.9 MMOL/L (3.5-5.1) Chloride Level 103 MMOL/L (98-107) Carbon Dioxide Level 25 MMOL/L (21-32) Anion Gap 8 mmol/L (5-15) Blood Urea Nitrogen 16 mg/dL (7-18) Creatinine 0.6 MG/DL (0.55-1.30) Estimat Glomerular Filtration Rate > 60 mL/min (>60) Glucose Level 180 MG/DL (74-106) #H Calcium Level 8.7 MG/DL (8.5-10.1) Intake and Output 02/02/18 02/03/18 19:00 07:00 Intake Total 575 ml 842.5 ml Output Total 131 ml 0 ml Balance 444 ml 842.5 ml Intake Oral 500 ml 0 ml IV Total 75 ml 842.5 ml Output Urine Total 0 ml 0 ml Other 131 ml Objective General Appearance: WD/WN, no apparent distress, alert EENT: PERRL/EOMI, normal ENT inspection, TMs normal Neck: non-tender, normal alignment, supple, normal inspection Cardiovascular: normal peripheral pulses, normal rate, regular rhythm, no gallop/murmur, no JVD Respiratory/Chest: chest wall non-tender, lungs clear, normal breath sounds, no respiratory distress, no accessory muscle use Abdomen: normal bowel sounds, non tender, soft, no organomegaly, no mass Extremities: normal range of motion, non-tender Neurologic: swift tender II-XII grossly normal, no motor/sensory deficits Skin: normal pigmentation, warm/dry Assessment/Plan Problem List: (1) Diabetes mellitus type II, uncontrolled Assessment & Plan: Continue novolog sliding scale. (2) HTN (hypertension) Assessment & Plan: Continue prn clonidine (3) Depression, major Assessment & Plan: Continue remeron and zyprexa (4) Syncope (5) Cerebral vascular accident Assessment & Plan: See MRI=no acute CVA-see neurology consult. (6) Elevated WBCs Assessment & Plan: Start ceftriaxone. Await ID consult. Urine culture pending. CXR stat (7) Fever Assessment & Plan: Refused urine sample. Start empiric ceftriaxone. See ID note. (8) Atrial fibrillation Assessment & Plan: Converted to sinus Status: not improved Assessment/Plan Transfer to Med/Surg Magdy Church MD Feb 03, 2018 12:58
--- NOTE | 2018-02-03 13:52 | General Progress Note ---
Assessment/Plan Status: stable Assessment/Plan # Anemia due to underlying chronic disease. --> Currently stable, no w/u required. Hgb above 13 # Leukocytosis, likely secondary to reactive process, seems to be resolved. # Deep venous thrombosis. The patient with a history of deep venous thrombosis before. --> Imaging has been reviewed. No evidence of deep venous thrombosis at this time. # Thrombocytopenia likely related to reactive process --> monitor closely for improvement --> hold off any further anticoagulants --> 02/02 PLT count normalized. # Diabetes mellitus. A1c goal less than 7. --> 01/30 A1C of 8.8 # Hyperlipidemia. # Protein-calorie malnutrition. # Syncopal episode. Cardiology and Neurology Service consulted. # Hypertension. Systolic blood pressure goal less than 140. The time the note was entered does not necessarily correspond to the time the patient was seen. Subjective Date patient seen: Feb 03, 2018 ROS Limited/Unobtainable: Yes Hematologic/Lymphatic: Reports: anemia Allergies: Coded Allergies: No Known Allergies (Unverified , 04/12/17) All Systems: reviewed and negative except above Subjective Pt awake, irritable and uncooperative. No acute events. Urine cx pending. Objective Last 24 Hour Vital Signs Date Time Temp Pulse Resp B/P (MAP) Pulse Ox O2 Delivery O2 Flow Rate FiO2 02/03/18 12:00 Room Air 02/03/18 11:57 97.5 72 20 117/73 (88) 97 97.5 02/03/18 11:45 75 02/03/18 09:28 71 18 Room Air 21 02/03/18 09:15 72 119/71 02/03/18 08:04 97.7 72 21 119/71 (87) 97 97.7 02/03/18 08:00 Room Air 02/03/18 07:54 72 02/03/18 06:25 70 02/03/18 04:00 Room Air 02/03/18 04:00 98.7 70 20 102/63 (76) 95 98.7 02/03/18 00:00 99.0 72 20 96/57 (70) 96 99.0 02/03/18 00:00 Room Air 02/02/18 22:31 99.0 02/02/18 21:32 100.2 02/02/18 20:00 Room Air 02/02/18 20:00 74 18 Room Air 21 02/02/18 20:00 75 02/02/18 20:00 100.2 75 20 93/57 (69) 96 100.2 02/02/18 16:30 98.2 82 20 101/64 (76) 97 98.2 02/02/18 16:00 Room Air 02/02/18 15:25 81 02/02/18 15:17 96 02/02/18 14:38 164 02/02/18 14:00 Room Air Intake and Output 02/02/18 02/03/18 19:00 07:00 Intake Total 575 ml 842.5 ml Output Total 131 ml 0 ml Balance 444 ml 842.5 ml Intake Oral 500 ml 0 ml IV Total 75 ml 842.5 ml Output Urine Total 0 ml 0 ml Other 131 ml Laboratory Tests 02/03/18 03:40: White Blood Count 5.7, Red Blood Count 4.38L, Hemoglobin 12.9L, Hematocrit 37.7L , Mean Corpuscular Volume 86, Mean Corpuscular Hemoglobin 29.4, Mean Corpuscular Hemoglobin Concent 34.3, Red Cell Distribution Width 11.3L, Platelet Count 145L, Mean Platelet Volume 8.1, Neutrophils (%) (Auto) 74.8, Lymphocytes (%) (Auto) 15.2L, Monocytes (%) (Auto) 5.4, Eosinophils (%) (Auto) 3.8H, Basophils (%) (Auto) 0.8, Sodium Level 136, Potassium Level 3.9, Chloride Level 103, Carbon Dioxide Level 25, Anion Gap 8, Blood Urea Nitrogen 16, Creatinine 0.6, Estimat Glomerular Filtration Rate > 60, Glucose Level 180#H, Calcium Level 8.7 Height (Feet): 5 Height (Inches): 10.00 Weight (Pounds): 138 General Appearance: no apparent distress EENT: PERRL/EOMI Neck: normal alignment Cardiovascular: normal peripheral pulses Respiratory/Chest: no respiratory distress Abdomen: no organomegaly Jonathan Morrow MD Feb 03, 2018 13:52
[2018-02-03] MEDS: cefTRIAXone 1 GM in D5W 55 ML IVPB SCH (15:34)
[2018-02-03 16:00] VITALS: BP 105/69
[2018-02-03] MEDS ORDERED: Xarelto 10mg tab ORAL SCH (16:30)
[2018-02-03 16:38] LABS: ANION GAP 11 mmol/L (5-15); BLOOD UREA NITROGEN 15 mg/dL (7-18); CALCIUM 8.4 MG/DL (8.5-10.1); CARBON DIOXIDE 24 MMOL/L (21-32); CHLORIDE 103 MMOL/L (98-107); CREATININE 0.5 MG/DL (0.55-1.30); POTASSIUM 4.3 MMOL/L (3.5-5.1); SODIUM 138 MMOL/L (136-145)
[2018-02-03 20:00] VITALS: BP 118/70
--- NOTE | 2018-02-03 20:17 | Neurology Progress Note ---
Interim History Interim History Interim History Mr. Bateman continues to be subdued. He is not very cooperative today. His energy level is still low. His blood pressures have been better. He has been noted to go in and out of atrial fibrillation. He denies any new neurologic symptoms. He specifically denies any weakness, numbness, visual problems or speech problems. Review of Systems Neuro Review of Systems Benign. Objective Physical Exam Last Vital Signs Date Time Temp Pulse Resp B/P (MAP) Pulse Ox O2 Delivery O2 Flow Rate FiO2 02/03/18 16:00 97.8 72 19 105/69 (81) 97 97.8 02/03/18 16:00 Room Air 02/03/18 09:28 21 Laboratory Tests Test 02/03/18 03:40 02/03/18 16:15 White Blood Count 5.7 K/UL (4.8-10.8) Red Blood Count 4.38 M/UL (4.70-6.10) L Hemoglobin 12.9 G/DL (14.2-18.0) L Hematocrit 37.7 % (42.0-52.0) L Mean Corpuscular Volume 86 FL (80-99) Mean Corpuscular Hemoglobin 29.4 PG (27.0-31.0) Mean Corpuscular Hemoglobin Concent 34.3 G/DL (32.0-36.0) Red Cell Distribution Width 11.3 % (11.6-14.8) L Platelet Count 145 K/UL (150-450) L Mean Platelet Volume 8.1 FL (6.5-10.1) Neutrophils (%) (Auto) 74.8 % (45.0-75.0) Lymphocytes (%) (Auto) 15.2 % (20.0-45.0) L Monocytes (%) (Auto) 5.4 % (1.0-10.0) Eosinophils (%) (Auto) 3.8 % (0.0-3.0) H Basophils (%) (Auto) 0.8 % (0.0-2.0) Sodium Level 136 MMOL/L (136-145) 138 MMOL/L (136-145) Potassium Level 3.9 MMOL/L (3.5-5.1) 4.3 MMOL/L (3.5-5.1) Chloride Level 103 MMOL/L (98-107) 103 MMOL/L (98-107) Carbon Dioxide Level 25 MMOL/L (21-32) 24 MMOL/L (21-32) Anion Gap 8 mmol/L (5-15) 11 mmol/L (5-15) Blood Urea Nitrogen 16 mg/dL (7-18) 15 mg/dL (7-18) Creatinine 0.6 MG/DL (0.55-1.30) 0.5 MG/DL (0.55-1.30) L Estimat Glomerular Filtration Rate > 60 mL/min (>60) > 60 mL/min (>60) Glucose Level 180 MG/DL (74-106) #H 160 MG/DL (74-106) H Calcium Level 8.7 MG/DL (8.5-10.1) 8.4 MG/DL (8.5-10.1) L Neurologic Exam Objective PHYSICAL EXAMINATION: GENERAL: He is a well-developed, well-nourished, but lean gentleman, lying in bed, in no acute distress. HEAD: Normocephalic and atraumatic. EENT: Examination benign. NECK: No neck rigidity was observed. NEUROLOGICAL EXAMINATION: MENTAL STATUS EXAMINATION: He was awake and alert. He was oriented to person, place, and time except for the exact date. He was able to recall 3/3 words immediately and in 1 minute, but could only remember 2/3 words in 3 minutes. He was able to remember presidents, Trump and Obama, but could not remember presidents prior to that. His mathematical skills were impaired. His visuospatial function was also impaired. SPEECH: He had no dysarthria. LANGUAGE: He had no aphasia. CRANIAL NERVE EXAMINATION: II: The visual winter were intact to confrontation testing. III, IV & : The external ocular movements were full and the pupils 3 mm in diameter, equal, round, regular, and reactive to light. V: He had normal facial sensations, and the temporales, masseters, and pterygoids functioned normally. VII: He had normal facial expressions and no facial asymmetry. VIII: He was able to hear well bilaterally and he had no nystagmus. IX: The palate moved symmetrically on phonation. X: He had no hoarseness of voice. XI: The sternocleidomastoids and trapezii function normally. XII: The tongue was in the midline without any fasciculations or atrophy. MOTOR SYSTEM: The tone was normal in all four extremities. Examination of muscle mass revealed no focal wasting. Examination of power revealed grade 5/5 power in all muscle groups tested. SENSORY EXAMINATION: He had intact sensations to pinprick and light touch. Position sense was diminished in the toes bilaterally, but was normal in the fingers bilaterally. Graphesthesia was normal bilaterally. REFLEXES: 0 at the biceps, triceps, brachioradialis, knees, and ankles. The plantar responses were flexor bilaterally. STANCE & GAIT: He refused to get out of bed. Impression/Recommendations Diagnostic Impression 1. Mr. Davy Bateman is a 62-year-old, right-handed, gentleman, with a past history of hypertension, diabetes mellitus, depression, and a syncopal episode approximately 1 month ago, who for the last month or so has been living in a retirement where he had another syncopal episode as a result of which, he was sent to the [facility] emergency room. While he was being investigated for the syncopal episode, an MRI scan of the brain was done on , which revealed a very questionable focus of increased diffusion signal in the left thalamus. This consultation was requested to evaluate the patient for a possible stroke. 2. He continues to be subdued. He is not very cooperative today. His energy level is still low. His blood pressures have been better. He has been noted to go in and out of atrial fibrillation. He denies any new neurologic symptoms. He specifically denies any weakness, numbness, visual problems or speech problems. 3. On neurological examination at this time, he does have problems with orientation, recent and remote memory, visuospatial function, and higher cognitive function. He also has absent deep tendon reflexes. He, however, does not demonstrate any signs of focal or lateralizing neurological dysfunction. His pulse is irregularly irregular at 124/minute. 4. A CT scan of the brain performed on 01/28/2018 was reviewed and revealed mild age-related changes, but no intracranial mass, hemorrhage, or infarct. 5. The MRI scan of the brain done on 01/29/2018 was also reviewed and revealed a tiny area of increased diffusion signal in the left thalamus most probably of an artifactual nature. 6. His carotid duplex performed on 01/30/2018 revealed 30% stenosis of both internal carotid arteries. 7. Laboratory data obtained thus far have revealed that his WBC count was elevated to 11,100 on admission and has now come down to 9400. He is mildly anemic with a hemoglobin of 13.1. His chemistry panel on admission revealed a blood glucose elevated to 29.8 his TSH was normal at 3.25. His hemoglobin A1c was elevated to 8.8% and his LDL was at 97. 8. The patient's history and neurological examination are most compatible with syncopal episodes. The description of which is unavailable to us. There is a high likelihood that his syncopal episodes are due to a cardiac arrhythmia. 9. The questionable focus of increased diffusion signal in the left thalamus on the MRI scan is not associated with any signs or symptoms, and is thus most probably of an artifactual nature. Recommendations 1. Continue present management. 2. The patient's blood pressures and blood sugars should be controlled and brought down into physiological range. 3. Now that he has been found to have paroxysmal atrial fibrillation - anticoagulation should be considered. 4. Continue Plavix. 5. Treatment of cardiac arrhythmia as per Dr. Smyth. Jhoana Wolf M.D., M.S.P.JHOANA ZULUAGA Feb 03, 2018 20:17
[2018-02-03] MEDS: OLANZapine 2.5mg tab ORAL SCH (21:44)
--- NOTE | 2018-02-03 22:21 | Cardiology Progress Note ---
Assessment/Plan Status: stable, progressing Assessment/Plan Assessment Diabetes DVT Depression Hyperglycemia Syncope Confusion AFIB Plan Echo reviewed - no findings to suggest cardiac syncope -Glucose control HgA1c 8.8 -Etiology may be from autonomic dysfunction from longstanding poorly controlled diabetes -May benefit from compression stockings and isometric exercises. -Syncope does not appear to be from an aural/balance etiology, CT head negative. -Telemetry to monitor for arrhythmias - AFIB confirmed -EEG, Neuro consult appreciated -MRI reviewed, possible small infarct -Continue plavix -Physical therapy -Aspiration precautions -Start metoprolol 50 BID for rate control -Xarelto for anticoagulation - will need to determine fall risk and weigh R/B/A -If unstable will need to SRINIVAS/cardiovert -Amiodarone IV push prn RVR -Goal heart rate <110 - Subjective Cardiovascular: Reports: no symptoms Respiratory: Reports: no symptoms Gastrointestinal/Abdominal: Reports: no symptoms Genitourinary: Reports: no symptoms Subjective No acute events, no distress, vitals stable. Asleep, irritable Went into afib and spontaneously converted Patient is deemed a fall risk thus anticoagulation deferred Objective Last 24 Hour Vital Signs Date Time Temp Pulse Resp B/P (MAP) Pulse Ox O2 Delivery O2 Flow Rate FiO2 02/03/18 16:00 97.8 72 19 105/69 (81) 97 97.8 02/03/18 16:00 Room Air 02/03/18 15:22 69 02/03/18 12:00 Room Air 02/03/18 11:57 97.5 72 20 117/73 (88) 97 97.5 02/03/18 11:45 75 02/03/18 09:28 71 18 Room Air 21 02/03/18 09:15 72 119/71 02/03/18 08:04 97.7 72 21 119/71 (87) 97 97.7 02/03/18 08:00 Room Air 02/03/18 07:54 72 02/03/18 06:25 70 02/03/18 04:00 Room Air 02/03/18 04:00 98.7 70 20 102/63 (76) 95 98.7 02/03/18 00:00 99.0 72 20 96/57 (70) 96 99.0 02/03/18 00:00 Room Air 02/02/18 22:31 99.0 General Appearance: no apparent distress, alert EENT: PERRL/EOMI, normal ENT inspection Neck: non-tender, normal alignment Rhythm: NSR Cardiovascular: normal peripheral pulses, normal rate, regular rhythm Respiratory/Chest: chest wall non-tender, lungs clear Abdomen: normal bowel sounds, non tender Extremities: normal range of motion, non-tender 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, no motor/sensory deficits Intake and Output 02/02/18 02/03/18 19:00 07:00 Intake Total 575 ml 842.5 ml Output Total 131 ml 0 ml Balance 444 ml 842.5 ml Intake Oral 500 ml 0 ml IV Total 75 ml 842.5 ml Output Urine Total 0 ml 0 ml Other 131 ml Laboratory Tests Test 02/03/18 03:40 02/03/18 16:15 White Blood Count 5.7 K/UL (4.8-10.8) Red Blood Count 4.38 M/UL (4.70-6.10) L Hemoglobin 12.9 G/DL (14.2-18.0) L Hematocrit 37.7 % (42.0-52.0) L Mean Corpuscular Volume 86 FL (80-99) Mean Corpuscular Hemoglobin 29.4 PG (27.0-31.0) Mean Corpuscular Hemoglobin Concent 34.3 G/DL (32.0-36.0) Red Cell Distribution Width 11.3 % (11.6-14.8) L Platelet Count 145 K/UL (150-450) L Mean Platelet Volume 8.1 FL (6.5-10.1) Neutrophils (%) (Auto) 74.8 % (45.0-75.0) Lymphocytes (%) (Auto) 15.2 % (20.0-45.0) L Monocytes (%) (Auto) 5.4 % (1.0-10.0) Eosinophils (%) (Auto) 3.8 % (0.0-3.0) H Basophils (%) (Auto) 0.8 % (0.0-2.0) Sodium Level 136 MMOL/L (136-145) 138 MMOL/L (136-145) Potassium Level 3.9 MMOL/L (3.5-5.1) 4.3 MMOL/L (3.5-5.1) Chloride Level 103 MMOL/L (98-107) 103 MMOL/L (98-107) Carbon Dioxide Level 25 MMOL/L (21-32) 24 MMOL/L (21-32) Anion Gap 8 mmol/L (5-15) 11 mmol/L (5-15) Blood Urea Nitrogen 16 mg/dL (7-18) 15 mg/dL (7-18) Creatinine 0.6 MG/DL (0.55-1.30) 0.5 MG/DL (0.55-1.30) L Estimat Glomerular Filtration Rate > 60 mL/min (>60) > 60 mL/min (>60) Glucose Level 180 MG/DL (74-106) #H 160 MG/DL (74-106) H Calcium Level 8.7 MG/DL (8.5-10.1) 8.4 MG/DL (8.5-10.1) L Davy Smyth M.D. Feb 03, 2018 22:21
[2018-02-04] VITALS (7 sets, daily range): BP systolic 90–119; BP diastolic 58–83
[2018-02-04 04:58] LABS: BASOPHILS % (AUTO) 0.7 % (0.0-2.0); EOSINOPHILS % (AUTO) 9.7 % (0.0-3.0); HEMATOCRIT 38.8 % (42.0-52.0); HEMOGLOBIN 13.4 G/DL (14.2-18.0); LYMPHOCYTES % (AUTO) 23.8 % (20.0-45.0); MEAN CORPUSCULAR VOLUME 86 FL (80-99); NEUTROPHILS % (AUTO) 54.8 % (45.0-75.0); PLATELET COUNT 147 K/UL (150-450); RED CELL DISTRIBUTION WIDTH 11.8 % (11.6-14.8); WHITE BLOOD COUNT 7.4 K/UL (4.8-10.8)
[2018-02-04 05:14] LABS: ALANINE AMINOTRANSFERASE 29 U/L (12-78); ALBUMIN 2.9 G/DL (3.4-5.0); ALBUMIN/GLOBULIN RATIO 0.8 (1.0-2.7); ALKALINE PHOSPHATASE 74 U/L (46-116); ANION GAP 10 mmol/L (5-15); ASPARTATE AMINO TRANSFERASE 18 U/L (15-37); BILIRUBIN,TOTAL 0.3 MG/DL (0.2-1.0); BLOOD UREA NITROGEN 14 mg/dL (7-18); CALCIUM 8.6 MG/DL (8.5-10.1); CARBON DIOXIDE 24 MMOL/L (21-32); CHLORIDE 102 MMOL/L (98-107); CREATININE 0.7 MG/DL (0.55-1.30); PHOSPHORUS 2.2 MG/DL (2.5-4.9); POTASSIUM 4.1 MMOL/L (3.5-5.1); SODIUM 136 MMOL/L (136-145)
[2018-02-04] MEDS: NovoLOG Insulin Flexpen SUBQ SCH ×4 (06:26→20:45)
--- NOTE | 2018-02-04 07:38 | Infectious Diseases Prog Note ---
Assessment/Plan Assessment/Plan Imaging CXR 02/02/18 - No acute process CT and MRI - No finding suggesting infection. Mr. Bateman is a 62 yo male with PMHx of DM2, HTN, Depression and DVT who presenting from a rehab center on 01/28/18 with syncope. On 02/02/18 he deveeloepd fever and mild leukocytosis # Fever and leukocytosis - Now resolved with Ceftriaxone - Unclear source. No signs of PNA, UTI possible no skin lesions. - UCx - Pending #DM2 #HTN #Depression #DVT Plan - Continue Ceftriaxone #2 - f/u UA/Cx - Monitor clinically Subjective Allergies: Coded Allergies: No Known Allergies (Unverified , 04/12/17) Subjective Patient reports doing well other then a slight headache Denies N/V/D and fever Objective Vital Signs Last 24 Hour Vital Signs Date Time Temp Pulse Resp B/P (MAP) Pulse Ox O2 Delivery O2 Flow Rate FiO2 02/04/18 04:02 131 02/04/18 04:00 Room Air 02/04/18 04:00 98.4 76 20 118/83 (95) 95 98.4 02/04/18 00:00 98.4 73 20 116/66 (83) 95 98.4 02/04/18 00:00 Room Air 02/03/18 23:39 72 02/03/18 21:55 74 18 Room Air 02/03/18 20:00 98.9 73 20 118/70 (86) 96 98.9 02/03/18 20:00 Room Air 02/03/18 19:57 75 02/03/18 16:00 97.8 72 19 105/69 (81) 97 97.8 02/03/18 16:00 Room Air 02/03/18 15:22 69 02/03/18 12:00 Room Air 02/03/18 11:57 97.5 72 20 117/73 (88) 97 97.5 02/03/18 11:45 75 02/03/18 09:28 71 18 Room Air 21 02/03/18 09:15 72 119/71 02/03/18 08:04 97.7 72 21 119/71 (87) 97 97.7 02/03/18 08:00 Room Air 02/03/18 07:54 72 Height (Feet): 5 Height (Inches): 10.00 Weight (Pounds): 138 Objective Gen: NAD, Think almost cachectic male, alert HEENT: NCAT, MMM, EOMI,, No Oral lesion, no scleral icterus LUNGS: CTAB, No W/C, CARDS: RRR, S1, S2, No M/R/G, ABD: Soft, NT, ND, No R/G, + BS, Ext: C/C/E, Pulses 2+ B/L (DP, Rad): NEURO: A/O x 4, Strength and Sensation Grossly intact PSYCH: mood/affect normal SKIN: warm/dry, No rashes, Abrasion on left knee Laboratory Tests Test 02/03/18 16:15 02/04/18 03:30 Sodium Level 138 MMOL/L (136-145) 136 MMOL/L (136-145) Potassium Level 4.3 MMOL/L (3.5-5.1) 4.1 MMOL/L (3.5-5.1) Chloride Level 103 MMOL/L (98-107) 102 MMOL/L (98-107) Carbon Dioxide Level 24 MMOL/L (21-32) 24 MMOL/L (21-32) Anion Gap 11 mmol/L (5-15) 10 mmol/L (5-15) Blood Urea Nitrogen 15 mg/dL (7-18) 14 mg/dL (7-18) Creatinine 0.5 MG/DL (0.55-1.30) L 0.7 MG/DL (0.55-1.30) Estimat Glomerular Filtration Rate > 60 mL/min (>60) > 60 mL/min (>60) Glucose Level 160 MG/DL (74-106) H 233 MG/DL (74-106) H Calcium Level 8.4 MG/DL (8.5-10.1) L 8.6 MG/DL (8.5-10.1) White Blood Count 7.4 K/UL (4.8-10.8) Red Blood Count 4.50 M/UL (4.70-6.10) L Hemoglobin 13.4 G/DL (14.2-18.0) L Hematocrit 38.8 % (42.0-52.0) L Mean Corpuscular Volume 86 FL (80-99) Mean Corpuscular Hemoglobin 29.7 PG (27.0-31.0) Mean Corpuscular Hemoglobin Concent 34.4 G/DL (32.0-36.0) Red Cell Distribution Width 11.8 % (11.6-14.8) Platelet Count 147 K/UL (150-450) L Mean Platelet Volume 8.9 FL (6.5-10.1) Neutrophils (%) (Auto) 54.8 % (45.0-75.0) Lymphocytes (%) (Auto) 23.8 % (20.0-45.0) Monocytes (%) (Auto) 11.0 % (1.0-10.0) H Eosinophils (%) (Auto) 9.7 % (0.0-3.0) H Basophils (%) (Auto) 0.7 % (0.0-2.0) Phosphorus Level 2.2 MG/DL (2.5-4.9) L Magnesium Level 1.7 MG/DL (1.8-2.4) L Total Bilirubin 0.3 MG/DL (0.2-1.0) Aspartate Amino Transf (AST/SGOT) 18 U/L (15-37) Alanine Aminotransferase (ALT/SGPT) 29 U/L (12-78) Alkaline Phosphatase 74 U/L (46-116) Total Protein 6.7 G/DL (6.4-8.2) Albumin 2.9 G/DL (3.4-5.0) L Globulin 3.8 g/dL Albumin/Globulin Ratio 0.8 (1.0-2.7) L Current Medications Medications (Trade) Dose Ordered Sig/Elyssa Route PRN Reason Start Time Stop Time Status Last Admin Dose Admin Acetaminophen (Tylenol) 650 mg Q4H PRN ORAL fever 02/02/18 14:24 02/27/18 14:23 02/02/18 21:32 Al Hydroxide/Mg Hydroxide (Mylanta II) 30 ml Q6H PRN ORAL dyspepsia 02/02/18 14:24 02/27/18 14:23 Ceftriaxone Sodium 1 gm/ Dextrose 55 ml @ 110 mls/hr Q24H IVPB 02/02/18 16:00 02/09/18 15:59 02/03/18 15:34 Clonidine HCl (Catapres Tab) 0.1 mg Q4H PRN ORAL For SBP>160 02/02/18 14:24 02/27/18 14:23 Clopidogrel Bisulfate (Plavix) 75 mg DAILY ORAL 02/03/18 09:00 03/02/18 08:59 02/03/18 09:15 Dextrose (Dextrose 50%) 25 ml STAT PRN IV Hypoglycemia 02/02/18 14:25 02/27/18 14:24 Dextrose (Dextrose 50%) 50 ml STAT PRN IV Hypoglycemia 02/02/18 14:25 02/27/18 14:24 Fluoxetine HCl (PROzac) 20 mg DAILY ORAL 02/03/18 09:00 03/02/18 12:29 02/03/18 09:15 Gabapentin (Neurontin) 100 mg THREE TIMES A DAY ORAL 02/02/18 18:00 02/28/18 08:59 02/03/18 17:13 Insulin Aspart (NovoLOG) BEFORE MEALS AND HS SUBQ 02/02/18 16:30 02/28/18 06:29 02/03/18 12:31 Lorazepam (Ativan 2mg/ml 1ml) 0.5 mg Q4H PRN IV For Anxiety 02/02/18 14:30 02/04/18 14:29 Metoprolol Succinate (Toprol XL) 50 mg DAILY ORAL 02/03/18 09:00 03/05/18 08:59 02/03/18 09:15 Mirtazapine (Remeron) 7.5 mg BEDTIME ORAL 02/02/18 21:00 02/27/18 22:29 02/03/18 21:44 Morphine Sulfate (Morphine Sulfate) 1 mg Q4H PRN IVP For Pain 01-1402/02/18 16:30 02/04/18 16:29 Nitroglycerin (Ntg) 0.4 mg Q5M X 3 DOSES PRN SL Prn Chest Pain 02/02/18 14:15 02/27/18 22:14 Olanzapine (ZyPREXA) 2.5 mg Q6H PRN ORAL agitation 02/03/18 12:30 03/05/18 12:29 Olanzapine (ZyPREXA) 2.5 mg QHS ORAL 02/02/18 21:00 02/27/18 22:29 02/03/18 21:44 Ondansetron HCl (Zofran) 4 mg Q6H PRN IVP Nausea & Vomiting 02/02/18 16:15 02/27/18 22:14 Polyethylene Glycol (Miralax) 17 gm HSPRN PRN ORAL Constipation 02/02/18 16:30 02/27/18 16:29 Promethazine HCl/ Codeine (Phenergan with Codeine) 5 ml Q6H PRN ORAL For Cough 02/02/18 16:30 02/28/18 16:29 Sodium Chloride 1,000 ml @ 75 mls/hr [id number] IV 02/03/18 18:00 03/05/18 17:59 02/04/18 06:26 Davy Botello M.D. Feb 04, 2018 07:38
--- NOTE | 2018-02-04 10:11 | Pulmonology Progress Note ---
Assessment/Plan Problems: (1) Atrial fibrillation (2) Fever Assessment & Plan: on Ceftriaxone (3) Acute encephalopathy (4) Depression (5) Psychosis (6) Diabetes (7) Depression, major Assessment/Plan sinus rhythm now mri : acute cva all reviewed d/w psychiatry f/u neuro recommendation echo noted, EF of 45% sliding scale diabetic diet Subjective ROS Limited/Unobtainable: Yes Allergies: Coded Allergies: No Known Allergies (Unverified , 04/12/17) Objective Last 24 Hour Vital Signs Date Time Temp Pulse Resp B/P (MAP) Pulse Ox O2 Delivery O2 Flow Rate FiO2 02/04/18 08:10 70 18 Room Air 21 02/04/18 08:00 Room Air 02/04/18 08:00 97.2 141 18 100/66 (77) 96 97.2 02/04/18 07:52 141 02/04/18 04:02 131 02/04/18 04:00 Room Air 02/04/18 04:00 98.4 76 20 118/83 (95) 95 98.4 02/04/18 00:00 98.4 73 20 116/66 (83) 95 98.4 02/04/18 00:00 Room Air 02/03/18 23:39 72 02/03/18 21:55 74 18 Room Air 21 02/03/18 20:00 98.9 73 20 118/70 (86) 96 98.9 02/03/18 20:00 Room Air 02/03/18 19:57 75 02/03/18 16:00 97.8 72 19 105/69 (81) 97 97.8 02/03/18 16:00 Room Air 02/03/18 15:22 69 02/03/18 12:00 Room Air 02/03/18 11:57 97.5 72 20 117/73 (88) 97 97.5 02/03/18 11:45 75 Intake and Output 02/03/18 02/04/18 19:00 07:00 Intake Total 1036.25 ml 863 ml Output Total 600 ml Balance 1036.25 ml 263 ml Intake Oral 300 ml 0 ml IV Total 736.25 ml 863 ml Output Urine Total 300 ml Post Void Residual 300 ml Bladder Scan Volume Amount 661 > 300 ml 282 # Voids 1 # Bowel Movements 2 2 General Appearance: cachetic HEENT: normocephalic, atraumatic Respiratory/Chest: chest wall non-tender, lungs clear Cardiovascular: normal peripheral pulses, normal rate Abdomen: normal bowel sounds, no organomegaly Genitourinary: normal external genitalia Skin: no rash, no ulcers Laboratory Tests 02/03/18 16:15: Sodium Level 138, Potassium Level 4.3, Chloride Level 103, Carbon Dioxide Level 24, Anion Gap 11, Blood Urea Nitrogen 15, Creatinine 0.5L, Estimat Glomerular Filtration Rate > 60, Glucose Level 160H, Calcium Level 8.4L 02/04/18 03:30: Sodium Level 136, Potassium Level 4.1, Chloride Level 102, Carbon Dioxide Level 24, Anion Gap 10, Blood Urea Nitrogen 14, Creatinine 0.7, Estimat Glomerular Filtration Rate > 60, Glucose Level 233H, Calcium Level 8.6, White Blood Count 7.4, Red Blood Count 4.50L, Hemoglobin 13.4L, Hematocrit 38.8L, Mean Corpuscular Volume 86, Mean Corpuscular Hemoglobin 29.7, Mean Corpuscular Hemoglobin Concent 34.4, Red Cell Distribution Width 11.8, Platelet Count 147L, Mean Platelet Volume 8.9, Neutrophils (%) (Auto) 54.8, Lymphocytes (%) (Auto) 23.8, Monocytes (%) (Auto) 11.0H, Eosinophils (%) (Auto) 9.7H, Basophils (%) ( Auto) 0.7, Phosphorus Level 2.2L, Magnesium Level 1.7L, Total Bilirubin 0.3, Aspartate Amino Transf (AST/SGOT) 18, Alanine Aminotransferase (ALT/SGPT) 29, Alkaline Phosphatase 74, Total Protein 6.7, Albumin 2.9L, Globulin 3.8, Albumin/ Globulin Ratio 0.8L Current Medications Medications (Trade) Dose Ordered Sig/Elyssa Route PRN Reason Start Time Stop Time Status Last Admin Dose Admin Acetaminophen (Tylenol) 650 mg Q4H PRN ORAL fever 02/02/18 14:24 02/27/18 14:23 02/02/18 21:32 Al Hydroxide/Mg Hydroxide (Mylanta II) 30 ml Q6H PRN ORAL dyspepsia 02/02/18 14:24 02/27/18 14:23 Ceftriaxone Sodium 1 gm/ Dextrose 55 ml @ 110 mls/hr Q24H IVPB 02/02/18 16:00 02/09/18 15:59 02/03/18 15:34 Clonidine HCl (Catapres Tab) 0.1 mg Q4H PRN ORAL For SBP>160 02/02/18 14:24 02/27/18 14:23 Clopidogrel Bisulfate (Plavix) 75 mg DAILY ORAL 02/03/18 09:00 03/02/18 08:59 02/03/18 09:15 Dextrose (Dextrose 50%) 25 ml STAT PRN IV Hypoglycemia 02/02/18 14:25 02/27/18 14:24 Dextrose (Dextrose 50%) 50 ml STAT PRN IV Hypoglycemia 02/02/18 14:25 02/27/18 14:24 Fluoxetine HCl (PROzac) 20 mg DAILY ORAL 02/03/18 09:00 03/02/18 12:29 02/03/18 09:15 Gabapentin (Neurontin) 100 mg THREE TIMES A DAY ORAL 02/02/18 18:00 02/28/18 08:59 02/03/18 17:13 Insulin Aspart (NovoLOG) BEFORE MEALS AND HS SUBQ 02/02/18 16:30 02/28/18 06:29 02/03/18 12:31 Lorazepam (Ativan 2mg/ml 1ml) 0.5 mg Q4H PRN IV For Anxiety 02/02/18 14:30 02/04/18 14:29 Mirtazapine (Remeron) 7.5 mg BEDTIME ORAL 02/02/18 21:00 02/27/18 22:29 02/03/18 21:44 Morphine Sulfate (Morphine Sulfate) 1 mg Q4H PRN IVP For Pain 702/02/18 16:30 02/04/18 16:29 Nitroglycerin (Ntg) 0.4 mg Q5M X 3 DOSES PRN SL Prn Chest Pain 02/02/18 14:15 02/27/18 22:14 Olanzapine (ZyPREXA) 2.5 mg Q6H PRN ORAL agitation 02/03/18 12:30 03/05/18 12:29 Olanzapine (ZyPREXA) 2.5 mg QHS ORAL 02/02/18 21:00 02/27/18 22:29 02/03/18 21:44 Ondansetron HCl (Zofran) 4 mg Q6H PRN IVP Nausea & Vomiting 02/02/18 16:15 02/27/18 22:14 Polyethylene Glycol (Miralax) 17 gm HSPRN PRN ORAL Constipation 02/02/18 16:30 02/27/18 16:29 Promethazine HCl/ Codeine (Phenergan with Codeine) 5 ml Q6H PRN ORAL For Cough 02/02/18 16:30 02/28/18 16:29 Sodium Chloride 1,000 ml @ 75 mls/hr [id number] IV 02/03/18 18:00 03/05/18 17:59 02/04/18 06:26 Dontae Joshua MD Feb 04, 2018 10:11
[2018-02-04] MEDS: Metoprolol Succinate XL 50mg tab ORAL SCH (10:42)
[2018-02-04 13:57] LABS: APPEARANCE,URINE CLEAR; BILIRUBIN, URINE NEGATIVE (NEGATIVE); GLUCOSE, URINE (UA) 4+ (NEGATIVE); KETONES,URINE 2+ (NEGATIVE); LEUKOCYTE ESTERASE ,URINE NEGATIVE (NEGATIVE); NITRITE,URINE NEGATIVE (NEGATIVE); PH,URINE 5 (4.5-8.0); PROTEIN,URINE 2+ (NEGATIVE); UROBILINOGEN,URINE NORMAL MG/DL (0.0-1.0)
[2018-02-04 14:03] LABS: COLOR,URINE YELLOW
--- NOTE | 2018-02-04 14:22 | General Progress Note ---
Assessment/Plan Status: stable Assessment/Plan # Anemia due to underlying chronic disease. --> Currently stable, no w/u required. Hgb above 13 # Leukocytosis, likely secondary to reactive process, seems to be resolved. # Deep venous thrombosis. The patient with a history of deep venous thrombosis before. --> Imaging has been reviewed. No evidence of deep venous thrombosis at this time. # Thrombocytopenia likely related to reactive process --> monitor closely for improvement --> hold off any further anticoagulants --> 02/02 PLT count normalized. # Diabetes mellitus. A1c goal less than 7. --> 01/30 A1C of 8.8 # Hyperlipidemia. # Protein-calorie malnutrition. # Syncopal episode. Cardiology and Neurology Service consulted. # Hypertension. Systolic blood pressure goal less than 140. The time the note was entered does not necessarily correspond to the time the patient was seen. Subjective Date patient seen: Feb 04, 2018 ROS Limited/Unobtainable: Yes Hematologic/Lymphatic: Reports: anemia Allergies: Coded Allergies: No Known Allergies (Unverified , 04/12/17) All Systems: reviewed and negative except above Subjective Pt awake, irritable and uncooperative. Pt refused morning meds. No acute events. Objective Last 24 Hour Vital Signs Date Time Temp Pulse Resp B/P (MAP) Pulse Ox O2 Delivery O2 Flow Rate FiO2 02/04/18 12:00 98.2 78 20 114/74 (87) 99 98.2 02/04/18 12:00 Room Air 02/04/18 11:56 72 02/04/18 10:42 70 100/66 02/04/18 08:10 70 18 Room Air 21 02/04/18 08:00 Room Air 02/04/18 08:00 97.2 141 18 100/66 (77) 96 97.2 02/04/18 07:52 141 02/04/18 04:02 131 02/04/18 04:00 Room Air 02/04/18 04:00 98.4 76 20 118/83 (95) 95 98.4 02/04/18 00:00 98.4 73 20 116/66 (83) 95 98.4 02/04/18 00:00 Room Air 02/03/18 23:39 72 02/03/18 21:55 74 18 Room Air 21 02/03/18 20:00 98.9 73 20 118/70 (86) 96 98.9 02/03/18 20:00 Room Air 02/03/18 19:57 75 02/03/18 16:00 97.8 72 19 105/69 (81) 97 97.8 02/03/18 16:00 Room Air 02/03/18 15:22 69 Intake and Output 02/03/18 02/04/18 19:00 07:00 Intake Total 1036.25 ml 863 ml Output Total 600 ml Balance 1036.25 ml 263 ml Intake Oral 300 ml 0 ml IV Total 736.25 ml 863 ml Output Urine Total 300 ml Post Void Residual 300 ml Bladder Scan Volume Amount 661 > 300 ml 282 # Voids 1 # Bowel Movements 2 2 Laboratory Tests 02/03/18 16:15: Sodium Level 138, Potassium Level 4.3, Chloride Level 103, Carbon Dioxide Level 24, Anion Gap 11, Blood Urea Nitrogen 15, Creatinine 0.5L, Estimat Glomerular Filtration Rate > 60, Glucose Level 160H, Calcium Level 8.4L 02/04/18 03:30: Sodium Level 136, Potassium Level 4.1, Chloride Level 102, Carbon Dioxide Level 24, Anion Gap 10, Blood Urea Nitrogen 14, Creatinine 0.7, Estimat Glomerular Filtration Rate > 60, Glucose Level 233H, Calcium Level 8.6, White Blood Count 7.4, Red Blood Count 4.50L, Hemoglobin 13.4L, Hematocrit 38.8L, Mean Corpuscular Volume 86, Mean Corpuscular Hemoglobin 29.7, Mean Corpuscular Hemoglobin Concent 34.4, Red Cell Distribution Width 11.8, Platelet Count 147L, Mean Platelet Volume 8.9, Neutrophils (%) (Auto) 54.8, Lymphocytes (%) (Auto) 23.8, Monocytes (%) (Auto) 11.0H, Eosinophils (%) (Auto) 9.7H, Basophils (%) ( Auto) 0.7, Phosphorus Level 2.2L, Magnesium Level 1.7L, Total Bilirubin 0.3, Aspartate Amino Transf (AST/SGOT) 18, Alanine Aminotransferase (ALT/SGPT) 29, Alkaline Phosphatase 74, Total Protein 6.7, Albumin 2.9L, Globulin 3.8, Albumin/ Globulin Ratio 0.8L, Carcinoembryonic Antigen [Pending] 02/04/18 13:25: Urine Color Yellow, Urine Appearance Clear, Urine pH 5, Urine Specific [place] 1.020, Urine Protein 2+H, Urine Glucose (UA) 4+H, Urine Ketones 2+H, Urine Occult Blood Negative, Urine Nitrite Negative, Urine Bilirubin Negative, Urine Urobilinogen Normal, Urine Leukocyte Esterase Negative, Urine RBC 0-2H, Urine WBC 0-2, Urine Squamous Epithelial Cells None, Urine Bacteria None Height (Feet): 5 Height (Inches): 10.00 Weight (Pounds): 138 General Appearance: no apparent distress, alert EENT: PERRL/EOMI Neck: normal alignment Cardiovascular: normal peripheral pulses Respiratory/Chest: no respiratory distress Abdomen: soft Jonathan Morrow MD Feb 04, 2018 14:22
[2018-02-04] MEDS ORDERED: Tubing IV Secondary IV ONE (15:32)
--- NOTE | 2018-02-04 15:55 | Cardiology Progress Note ---
Assessment/Plan Status: stable Assessment/Plan Assessment Diabetes DVT Depression Hyperglycemia Syncope Confusion AFIB Plan Echo reviewed - no findings to suggest cardiac syncope -Glucose control HgA1c 8.8 -Etiology may be from autonomic dysfunction from longstanding poorly controlled diabetes -May benefit from compression stockings and isometric exercises. -Syncope does not appear to be from an aural/balance etiology, CT head negative. -Telemetry to monitor for arrhythmias - AFIB confirmed -EEG, Neuro consult appreciated -MRI reviewed, possible small infarct -Continue plavix -Physical therapy -Aspiration precautions -Start metoprolol 50 BID for rate control -Xarelto for anticoagulation - will need to determine fall risk and weigh R/B/A -If unstable will need to SRINIVAS/cardiovert -Amiodarone IV push prn RVR -Goal heart rate <110 -Dispo planning, ok to discharge back to SNF - Subjective Cardiovascular: Reports: no symptoms Respiratory: Reports: no symptoms Gastrointestinal/Abdominal: Reports: no symptoms Genitourinary: Reports: no symptoms Subjective No acute events, no distress, vitals stable. Asleep, irritable Went into afib and spontaneously converted Patient is deemed a fall risk thus anticoagulation deferred Electrolytes abnormal today Refused medications, Poor intake, sleeps all day Objective Last 24 Hour Vital Signs Date Time Temp Pulse Resp B/P (MAP) Pulse Ox O2 Delivery O2 Flow Rate FiO2 02/04/18 12:00 98.2 78 20 114/74 (87) 99 98.2 02/04/18 12:00 Room Air 02/04/18 11:56 72 02/04/18 10:42 70 100/66 02/04/18 08:10 70 18 Room Air 21 02/04/18 08:00 Room Air 02/04/18 08:00 97.2 141 18 100/66 (77) 96 97.2 02/04/18 07:52 141 02/04/18 04:02 131 02/04/18 04:00 Room Air 02/04/18 04:00 98.4 76 20 118/83 (95) 95 98.4 02/04/18 00:00 98.4 73 20 116/66 (83) 95 98.4 02/04/18 00:00 Room Air 02/03/18 23:39 72 02/03/18 21:55 74 18 Room Air 21 02/03/18 20:00 98.9 73 20 118/70 (86) 96 98.9 02/03/18 20:00 Room Air 02/03/18 19:57 75 02/03/18 16:00 97.8 72 19 105/69 (81) 97 97.8 02/03/18 16:00 Room Air General Appearance: no apparent distress, alert EENT: PERRL/EOMI, normal ENT inspection Neck: non-tender, normal alignment, supple Rhythm: NSR Cardiovascular: normal peripheral pulses, normal rate, regular rhythm Respiratory/Chest: chest wall non-tender, lungs clear Abdomen: normal bowel sounds, non tender Extremities: normal range of motion, non-tender 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: 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 II-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 grossly normal, no motor/sensory deficits Intake and Output 02/03/18 02/04/18 19:00 07:00 Intake Total 1036.25 ml 863 ml Output Total 600 ml Balance 1036.25 ml 263 ml Intake Oral 300 ml 0 ml IV Total 736.25 ml 863 ml Output Urine Total 300 ml Post Void Residual 300 ml Bladder Scan Volume Amount 661 > 300 ml 282 # Voids 1 # Bowel Movements 2 2 Laboratory Tests Test 02/03/18 16:15 02/04/18 03:30 02/04/18 13:25 Sodium Level 138 MMOL/L (136-145) 136 MMOL/L (136-145) Potassium Level 4.3 MMOL/L (3.5-5.1) 4.1 MMOL/L (3.5-5.1) Chloride Level 103 MMOL/L (98-107) 102 MMOL/L (98-107) Carbon Dioxide Level 24 MMOL/L (21-32) 24 MMOL/L (21-32) Anion Gap 11 mmol/L (5-15) 10 mmol/L (5-15) Blood Urea Nitrogen 15 mg/dL (7-18) 14 mg/dL (7-18) Creatinine 0.5 MG/DL (0.55-1.30) L 0.7 MG/DL (0.55-1.30) Estimat Glomerular Filtration Rate > 60 mL/min (>60) > 60 mL/min (>60) Glucose Level 160 MG/DL (74-106) H 233 MG/DL (74-106) H Calcium Level 8.4 MG/DL (8.5-10.1) L 8.6 MG/DL (8.5-10.1) White Blood Count 7.4 K/UL (4.8-10.8) Red Blood Count 4.50 M/UL (4.70-6.10) L Hemoglobin 13.4 G/DL (14.2-18.0) L Hematocrit 38.8 % (42.0-52.0) L Mean Corpuscular Volume 86 FL (80-99) Mean Corpuscular Hemoglobin 29.7 PG (27.0-31.0) Mean Corpuscular Hemoglobin Concent 34.4 G/DL (32.0-36.0) Red Cell Distribution Width 11.8 % (11.6-14.8) Platelet Count 147 K/UL (150-450) L Mean Platelet Volume 8.9 FL (6.5-10.1) Neutrophils (%) (Auto) 54.8 % (45.0-75.0) Lymphocytes (%) (Auto) 23.8 % (20.0-45.0) Monocytes (%) (Auto) 11.0 % (1.0-10.0) H Eosinophils (%) (Auto) 9.7 % (0.0-3.0) H Basophils (%) (Auto) 0.7 % (0.0-2.0) Phosphorus Level 2.2 MG/DL (2.5-4.9) L Magnesium Level 1.7 MG/DL (1.8-2.4) L Total Bilirubin 0.3 MG/DL (0.2-1.0) Aspartate Amino Transf (AST/SGOT) 18 U/L (15-37) Alanine Aminotransferase (ALT/SGPT) 29 U/L (12-78) Alkaline Phosphatase 74 U/L (46-116) Total Protein 6.7 G/DL (6.4-8.2) Albumin 2.9 G/DL (3.4-5.0) L Globulin 3.8 g/dL Albumin/Globulin Ratio 0.8 (1.0-2.7) L Carcinoembryonic Antigen Pending Urine Color Yellow Urine Appearance Clear Urine pH 5 (4.5-8.0) Urine Specific [place] 1.020 (1.005-1.035) Urine Protein 2+ (NEGATIVE) H Urine Glucose (UA) 4+ (NEGATIVE) H Urine Ketones 2+ (NEGATIVE) H Urine Occult Blood Negative (NEGATIVE) Urine Nitrite Negative (NEGATIVE) Urine Bilirubin Negative (NEGATIVE) Urine Urobilinogen Normal MG/DL (0.0-1.0) Urine Leukocyte Esterase Negative (NEGATIVE) Urine RBC 0-2 /HPF (0 - 0) H Urine WBC 0-2 /HPF (0 - 0) Urine Squamous Epithelial Cells None /LPF (NONE/OCC) Urine Bacteria None /HPF (NONE) Davy Smyth M.D. Feb 04, 2018 15:55
--- NOTE | 2018-02-04 16:51 | Internal Med Progress Note ---
Subjective Date of Service: Feb 04, 2018 Physician Name Magdy Church Attending Physician Jose Michele MD Current Medications Medications (Trade) Dose Ordered Sig/Elyssa Route PRN Reason Start Time Stop Time Status Last Admin Dose Admin Acetaminophen (Tylenol) 650 mg Q4H PRN ORAL fever 02/02/18 14:24 02/27/18 14:23 02/02/18 21:32 Al Hydroxide/Mg Hydroxide (Mylanta II) 30 ml Q6H PRN ORAL dyspepsia 02/02/18 14:24 02/27/18 14:23 Ceftriaxone Sodium 1 gm/ Dextrose 55 ml @ 110 mls/hr Q24H IVPB 02/02/18 16:00 02/09/18 15:59 02/03/18 15:34 Clonidine HCl (Catapres Tab) 0.1 mg Q4H PRN ORAL For SBP>160 02/02/18 14:24 02/27/18 14:23 Clopidogrel Bisulfate (Plavix) 75 mg DAILY ORAL 02/03/18 09:00 03/02/18 08:59 02/03/18 09:15 Dextrose (Dextrose 50%) 25 ml STAT PRN IV Hypoglycemia 02/02/18 14:25 02/27/18 14:24 Dextrose (Dextrose 50%) 50 ml STAT PRN IV Hypoglycemia 02/02/18 14:25 02/27/18 14:24 Gabapentin (Neurontin) 100 mg THREE TIMES A DAY ORAL 02/02/18 18:00 02/28/18 08:59 02/04/18 12:04 Insulin Aspart (NovoLOG) BEFORE MEALS AND HS SUBQ 02/02/18 16:30 02/28/18 06:29 02/03/18 12:31 Nitroglycerin (Ntg) 0.4 mg Q5M X 3 DOSES PRN SL Prn Chest Pain 02/02/18 14:15 02/27/18 22:14 Olanzapine (ZyPREXA) 2.5 mg Q6H PRN ORAL agitation 02/03/18 12:30 03/05/18 12:29 Ondansetron HCl (Zofran) 4 mg Q6H PRN IVP Nausea & Vomiting 02/02/18 16:15 02/27/18 22:14 Polyethylene Glycol (Miralax) 17 gm HSPRN PRN ORAL Constipation 7/29/18 16:30 02/27/18 16:29 Promethazine HCl/ Codeine (Phenergan with Codeine) 5 ml Q6H PRN ORAL For Cough 02/02/18 16:30 02/28/18 16:29 Sodium Chloride 1,000 ml @ 75 mls/hr [id number] IV 02/03/18 18:00 03/05/18 17:59 02/04/18 06:26 Valproic Acid (Depakene) 750 mg BEDTIME NG 02/04/18 21:00 03/06/18 20:59 Allergies: Coded Allergies: No Known Allergies (Unverified , 04/12/17) ROS Limited/Unobtainable: No Constitutional: Reports: no symptoms HEENT: Reports: no symptoms Cardiovascular: Reports: no symptoms Respiratory: Reports: no symptoms Gastrointestinal/Abdominal: Reports: no symptoms Genitourinary: Reports: no symptoms 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: Reports: no symptoms Subjective 62 YO M admitted with chief complaint of syncope. Now atrial fibrillation. Cover for Int Med-Dr Michele. Refusing to give urine sample. ROBERTA Objective Last Vital Signs Date Time Temp Pulse Resp B/P (MAP) Pulse Ox O2 Delivery O2 Flow Rate FiO2 02/04/18 16:00 Room Air 02/04/18 15:23 79 02/04/18 12:00 98.2 20 114/74 (87) 99 98.2 02/04/18 08:10 21 Laboratory Tests Test 02/04/18 03:30 02/04/18 13:25 White Blood Count 7.4 K/UL (4.8-10.8) Red Blood Count 4.50 M/UL (4.70-6.10) L Hemoglobin 13.4 G/DL (14.2-18.0) L Hematocrit 38.8 % (42.0-52.0) L Mean Corpuscular Volume 86 FL (80-99) Mean Corpuscular Hemoglobin 29.7 PG (27.0-31.0) Mean Corpuscular Hemoglobin Concent 34.4 G/DL (32.0-36.0) Red Cell Distribution Width 11.8 % (11.6-14.8) Platelet Count 147 K/UL (150-450) L Mean Platelet Volume 8.9 FL (6.5-10.1) Neutrophils (%) (Auto) 54.8 % (45.0-75.0) Lymphocytes (%) (Auto) 23.8 % (20.0-45.0) Monocytes (%) (Auto) 11.0 % (1.0-10.0) H Eosinophils (%) (Auto) 9.7 % (0.0-3.0) H Basophils (%) (Auto) 0.7 % (0.0-2.0) Sodium Level 136 MMOL/L (136-145) Potassium Level 4.1 MMOL/L (3.5-5.1) Chloride Level 102 MMOL/L (98-107) Carbon Dioxide Level 24 MMOL/L (21-32) Anion Gap 10 mmol/L (5-15) Blood Urea Nitrogen 14 mg/dL (7-18) Creatinine 0.7 MG/DL (0.55-1.30) Estimat Glomerular Filtration Rate > 60 mL/min (>60) Glucose Level 233 MG/DL (74-106) H Calcium Level 8.6 MG/DL (8.5-10.1) Phosphorus Level 2.2 MG/DL (2.5-4.9) L Magnesium Level 1.7 MG/DL (1.8-2.4) L Total Bilirubin 0.3 MG/DL (0.2-1.0) Aspartate Amino Transf (AST/SGOT) 18 U/L (15-37) Alanine Aminotransferase (ALT/SGPT) 29 U/L (12-78) Alkaline Phosphatase 74 U/L (46-116) Total Protein 6.7 G/DL (6.4-8.2) Albumin 2.9 G/DL (3.4-5.0) L Globulin 3.8 g/dL Albumin/Globulin Ratio 0.8 (1.0-2.7) L Carcinoembryonic Antigen Pending Urine Color Yellow Urine Appearance Clear Urine pH 5 (4.5-8.0) Urine Specific [place] 1.020 (1.005-1.035) Urine Protein 2+ (NEGATIVE) H Urine Glucose (UA) 4+ (NEGATIVE) H Urine Ketones 2+ (NEGATIVE) H Urine Occult Blood Negative (NEGATIVE) Urine Nitrite Negative (NEGATIVE) Urine Bilirubin Negative (NEGATIVE) Urine Urobilinogen Normal MG/DL (0.0-1.0) Urine Leukocyte Esterase Negative (NEGATIVE) Urine RBC 0-2 /HPF (0 - 0) H Urine WBC 0-2 /HPF (0 - 0) Urine Squamous Epithelial Cells None /LPF (NONE/OCC) Urine Bacteria None /HPF (NONE) Intake and Output 02/03/18 02/04/18 19:00 07:00 Intake Total 1036.25 ml 863 ml Output Total 600 ml Balance 1036.25 ml 263 ml Intake Oral 300 ml 0 ml IV Total 736.25 ml 863 ml Output Urine Total 300 ml Post Void Residual 300 ml Bladder Scan Volume Amount 661 > 300 ml 282 # Voids 1 # Bowel Movements 2 2 Objective General Appearance: WD/WN, no apparent distress, alert EENT: PERRL/EOMI, normal ENT inspection, TMs normal Neck: non-tender, normal alignment, supple, normal inspection Cardiovascular: normal peripheral pulses, normal rate, regular rhythm, no gallop/murmur, no JVD Respiratory/Chest: chest wall non-tender, lungs clear, normal breath sounds, no respiratory distress, no accessory muscle use Abdomen: normal bowel sounds, non tender, soft, no organomegaly, no mass Extremities: normal range of motion, non-tender 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 (2) HTN (hypertension) Assessment & Plan: Continue prn clonidine (3) Depression, major Assessment & Plan: Continue remeron and zyprexa (4) Syncope (5) Cerebral vascular accident Assessment & Plan: See MRI=no acute CVA-see neurology consult. (6) Elevated WBCs Assessment & Plan: Start ceftriaxone. Await ID consult. Urine culture pending. CXR stat (7) Fever Assessment & Plan: Refused urine sample. Continue ceftriaxone. See ID note. (8) Atrial fibrillation Assessment & Plan: Converted to sinus. ?xarelto?, however fall risk. See cardiology note. Status: stable Assessment/Plan Transfer to Med/Surg Magdy Church MD Feb 04, 2018 16:51
[2018-02-04] MEDS: cefTRIAXone 1 GM in D5W 55 ML IVPB SCH (17:02)
[2018-02-04] MEDS ORDERED: Mylanta II UD 30ml ORAL PRN (18:35)
[2018-02-04] MEDS ORDERED: OLANZapine 2.5mg tab ORAL PRN (18:36)
[2018-02-04] MEDS ORDERED: Promethazine/Codeine 5ml UD ORAL PRN (18:37)
[2018-02-04] MEDS ORDERED: Miralax 17gm pkt ORAL PRN (18:37)
[2018-02-04] MEDS ORDERED: Nitroglycerin Subl 0.4mg tab SL PRN (18:45)
--- NOTE | 2018-02-04 19:16 | Neurology Progress Note ---
Interim History Interim History Interim History Mr. Bateman is subdued. He is more cooperative today. His energy level is still low. His blood pressures have been better. He has been noted to go in and out of atrial fibrillation. He denies any new neurologic symptoms. He specifically denies any weakness, numbness, visual problems or speech problems. Review of Systems Neuro Review of Systems Benign. Objective Physical Exam Last Vital Signs Date Time Temp Pulse Resp B/P (MAP) Pulse Ox O2 Delivery O2 Flow Rate FiO2 02/04/18 18:35 97.3 79 21 99/75 (83) 97 97.3 02/04/18 16:00 Room Air 02/04/18 08:10 21 Laboratory Tests Test 02/04/18 03:30 02/04/18 13:25 White Blood Count 7.4 K/UL (4.8-10.8) Red Blood Count 4.50 M/UL (4.70-6.10) L Hemoglobin 13.4 G/DL (14.2-18.0) L Hematocrit 38.8 % (42.0-52.0) L Mean Corpuscular Volume 86 FL (80-99) Mean Corpuscular Hemoglobin 29.7 PG (27.0-31.0) Mean Corpuscular Hemoglobin Concent 34.4 G/DL (32.0-36.0) Red Cell Distribution Width 11.8 % (11.6-14.8) Platelet Count 147 K/UL (150-450) L Mean Platelet Volume 8.9 FL (6.5-10.1) Neutrophils (%) (Auto) 54.8 % (45.0-75.0) Lymphocytes (%) (Auto) 23.8 % (20.0-45.0) Monocytes (%) (Auto) 11.0 % (1.0-10.0) H Eosinophils (%) (Auto) 9.7 % (0.0-3.0) H Basophils (%) (Auto) 0.7 % (0.0-2.0) Sodium Level 136 MMOL/L (136-145) Potassium Level 4.1 MMOL/L (3.5-5.1) Chloride Level 102 MMOL/L (98-107) Carbon Dioxide Level 24 MMOL/L (21-32) Anion Gap 10 mmol/L (5-15) Blood Urea Nitrogen 14 mg/dL (7-18) Creatinine 0.7 MG/DL (0.55-1.30) Estimat Glomerular Filtration Rate > 60 mL/min (>60) Glucose Level 233 MG/DL (74-106) H Calcium Level 8.6 MG/DL (8.5-10.1) Phosphorus Level 2.2 MG/DL (2.5-4.9) L Magnesium Level 1.7 MG/DL (1.8-2.4) L Total Bilirubin 0.3 MG/DL (0.2-1.0) Aspartate Amino Transf (AST/SGOT) 18 U/L (15-37) Alanine Aminotransferase (ALT/SGPT) 29 U/L (12-78) Alkaline Phosphatase 74 U/L (46-116) Total Protein 6.7 G/DL (6.4-8.2) Albumin 2.9 G/DL (3.4-5.0) L Globulin 3.8 g/dL Albumin/Globulin Ratio 0.8 (1.0-2.7) L Carcinoembryonic Antigen Pending Urine Color Yellow Urine Appearance Clear Urine pH 5 (4.5-8.0) Urine Specific [place] 1.020 (1.005-1.035) Urine Protein 2+ (NEGATIVE) H Urine Glucose (UA) 4+ (NEGATIVE) H Urine Ketones 2+ (NEGATIVE) H Urine Occult Blood Negative (NEGATIVE) Urine Nitrite Negative (NEGATIVE) Urine Bilirubin Negative (NEGATIVE) Urine Urobilinogen Normal MG/DL (0.0-1.0) Urine Leukocyte Esterase Negative (NEGATIVE) Urine RBC 0-2 /HPF (0 - 0) H Urine WBC 0-2 /HPF (0 - 0) Urine Squamous Epithelial Cells None /LPF (NONE/OCC) Urine Bacteria None /HPF (NONE) Neurologic Exam Objective PHYSICAL EXAMINATION: GENERAL: He is a well-developed, well-nourished, but lean gentleman, lying in bed, in no acute distress. HEAD: Normocephalic and atraumatic. EENT: Examination benign. NECK: No neck rigidity was observed. NEUROLOGICAL EXAMINATION: MENTAL STATUS EXAMINATION: He was awake and alert. He was oriented to person, place, and time except for the exact date. He was able to recall 3/3 words immediately and in 1 minute, but could only remember 2/3 words in 3 minutes. He was able to remember presidents, Trump and Obama, but could not remember presidents prior to that. His mathematical skills were impaired. His visuospatial function was also impaired. SPEECH: He had no dysarthria. LANGUAGE: He had no aphasia. CRANIAL NERVE EXAMINATION: II: The visual winter were intact to confrontation testing. III, IV & : The external ocular movements were full and the pupils 3 mm in diameter, equal, round, regular, and reactive to light. V: He had normal facial sensations, and the temporales, masseters, and pterygoids functioned normally. VII: He had normal facial expressions and no facial asymmetry. VIII: He was able to hear well bilaterally and he had no nystagmus. IX: The palate moved symmetrically on phonation. X: He had no hoarseness of voice. XI: The sternocleidomastoids and trapezii function normally. XII: The tongue was in the midline without any fasciculations or atrophy. MOTOR SYSTEM: The tone was normal in all four extremities. Examination of muscle mass revealed no focal wasting. Examination of power revealed grade 5/5 power in all muscle groups tested. SENSORY EXAMINATION: He had intact sensations to pinprick and light touch. Position sense was diminished in the toes bilaterally, but was normal in the fingers bilaterally. Graphesthesia was normal bilaterally. REFLEXES: 0 at the biceps, triceps, brachioradialis, knees, and ankles. The plantar responses were flexor bilaterally. STANCE & GAIT: He refused to get out of bed. Impression/Recommendations Diagnostic Impression 1. Mr. Davy Bateman is a 62-year-old, right-handed, gentleman, with a past history of hypertension, diabetes mellitus, depression, and a syncopal episode approximately 1 month ago, who for the last month or so has been living in a skilled nursing where he had another syncopal episode as a result of which, he was sent to the [facility] emergency room. While he was being investigated for the syncopal episode, an MRI scan of the brain was done on , which revealed a very questionable focus of increased diffusion signal in the left thalamus. This consultation was requested to evaluate the patient for a possible stroke. 2. He continues to be subdued. He is more cooperative today. His energy level is still low. His blood pressures have been better. He has been noted to go in and out of atrial fibrillation. He denies any new neurologic symptoms. He specifically denies any weakness, numbness, visual problems or speech problems. 3. On neurological examination at this time, he does have problems with orientation, recent and remote memory, visuospatial function, and higher cognitive function. He also has absent deep tendon reflexes. He, however, does not demonstrate any signs of focal or lateralizing neurological dysfunction. 4. A CT scan of the brain performed on 01/28/2018 was reviewed and revealed mild age-related changes, but no intracranial mass, hemorrhage, or infarct. 5. The MRI scan of the brain done on 01/29/2018 was also reviewed and revealed a tiny area of increased diffusion signal in the left thalamus most probably of an artifactual nature. 6. His carotid duplex performed on 01/30/2018 revealed 30% stenosis of both internal carotid arteries. 7. Laboratory data obtained thus far have revealed that his WBC count was elevated to 11,100 on admission and has now come down to 9400. He is mildly anemic with a hemoglobin of 13.1. His chemistry panel on admission revealed a blood glucose elevated to 29.8 his TSH was normal at 3.25. His hemoglobin A1c was elevated to 8.8% and his LDL was at 97. 8. The patient's history and neurological examination are most compatible with syncopal episodes. The description of which is unavailable to us. There is a high likelihood that his syncopal episodes are due to a cardiac arrhythmia. 9. The questionable focus of increased diffusion signal in the left thalamus on the MRI scan is not associated with any signs or symptoms, and is thus most probably of an artifactual nature. Recommendations 1. Continue present management. 2. The patient's blood pressures and blood sugars should be controlled and kept in the physiological range. 3. Now that he has been found to have paroxysmal atrial fibrillation - anticoagulation should be considered. 4. Continue Plavix. 5. Treatment of cardiac arrhythmia as per Dr. Smyth. Jhoana Wolf M.D., M.S.P.JHOANA ZULUAGA Feb 04, 2018 19:16
[2018-02-04] MEDS ORDERED: Valproic Acid 250mg/5ml Liquid NG SCH ×2 (21:00)
[2018-02-05 04:00] VITALS: BP 124/53
[2018-02-05] MEDS: NovoLOG Insulin Flexpen SUBQ SCH ×3 (06:47→11:41)
[2018-02-05 07:26] LABS: BASOPHILS % (AUTO) 1.1 % (0.0-2.0); EOSINOPHILS % (AUTO) 10.7 % (0.0-3.0); HEMATOCRIT 35.2 % (42.0-52.0); HEMOGLOBIN 12.3 G/DL (14.2-18.0); LYMPHOCYTES % (AUTO) 26.5 % (20.0-45.0); MEAN CORPUSCULAR VOLUME 85 FL (80-99); NEUTROPHILS % (AUTO) 49.6 % (45.0-75.0); PLATELET COUNT 150 K/UL (150-450); RED BLOOD COUNT 4.13 M/UL (4.70-6.10); RED CELL DISTRIBUTION WIDTH 11.5 % (11.6-14.8)
--- NOTE | 2018-02-05 07:29 | Infectious Diseases Prog Note ---
Assessment/Plan Assessment/Plan Imaging CXR 02/02/18 - No acute process CT and MRI - No finding suggesting infection. Mr. Bateman is a 62 yo male with PMHx of DM2, HTN, Depression and DVT who presenting from a rehab center on 01/28/18 with syncope. On 02/02/18 he deveeloepd fever and mild leukocytosis # Fever and leukocytosis - Now resolved with Ceftriaxone - Unclear source. No signs of PNA, UA now WBCs. No skin lesions. 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 #HTN #Depression #DVT Plan - Start Augmentin #1- finish a 5 day course for possible UTI End date 02/06/18 - 02/05 SPD/C Ceftriaxone #2 - f/u UA/Cx - Monitor clinically Subjective Allergies: Coded Allergies: No Known Allergies (Unverified , 04/12/17) Subjective Patient reports doing well, Denies Headache Denies N/V/D and fever Objective Vital Signs Last 24 Hour Vital Signs Date Time Temp Pulse Resp B/P (MAP) Pulse Ox O2 Delivery O2 Flow Rate FiO2 02/05/18 04:00 97.8 66 20 124/53 (76) 95 97.8 02/05/18 04:00 66 02/05/18 00:00 68 02/04/18 21:00 Room Air 02/04/18 20:00 97.5 69 2 90/58 (69) 98 97.5 02/04/18 20:00 68 02/04/18 18:35 97.3 79 21 99/75 (83) 97 97.3 02/04/18 16:00 97.7 70 24 119/73 (88) 96 97.7 02/04/18 16:00 Room Air 02/04/18 15:23 79 02/04/18 12:00 98.2 78 20 114/74 (87) 99 98.2 02/04/18 12:00 Room Air 02/04/18 11:56 72 02/04/18 10:42 70 100/66 02/04/18 08:10 70 18 Room Air 21 02/04/18 08:00 Room Air 02/04/18 08:00 97.2 141 18 100/66 (77) 96 97.2 02/04/18 07:52 141 Height (Feet): 5 Height (Inches): 10.00 Weight (Pounds): 158 Objective Gen: NAD, Thin almost cachectic male HEENT: NCAT, MMM, EOMI, No Oral lesion, no scleral icterus LUNGS: CTAB, No W/C, CARDS: RRR, No M/R/G, ABD: Soft, NT, ND, + BS, Ext: C/C/E, Pulses 2+ B/L (DP, Rad): NEURO: A/O x 4, Strength and Sensation Grossly intact PSYCH: mood/affect normal SKIN: warm/dry, No rashes, Abrasion on left knee Laboratory Tests Test 02/04/18 13:25 02/05/18 06:03 Urine Color Yellow Urine Appearance Clear Urine pH 5 (4.5-8.0) Urine Specific [place] 1.020 (1.005-1.035) Urine Protein 2+ (NEGATIVE) H Urine Glucose (UA) 4+ (NEGATIVE) H Urine Ketones 2+ (NEGATIVE) H Urine Occult Blood Negative (NEGATIVE) Urine Nitrite Negative (NEGATIVE) Urine Bilirubin Negative (NEGATIVE) Urine Urobilinogen Normal MG/DL (0.0-1.0) Urine Leukocyte Esterase Negative (NEGATIVE) Urine RBC 0-2 /HPF (0 - 0) H Urine WBC 0-2 /HPF (0 - 0) Urine Squamous Epithelial Cells None /LPF (NONE/OCC) Urine Bacteria None /HPF (NONE) White Blood Count Pending Red Blood Count Pending Hemoglobin Pending Hematocrit Pending Mean Corpuscular Volume Pending Mean Corpuscular Hemoglobin Pending Mean Corpuscular Hemoglobin Concent Pending Red Cell Distribution Width Pending Platelet Count Pending Mean Platelet Volume Pending Neutrophils (%) (Auto) Pending Lymphocytes (%) (Auto) Pending Monocytes (%) (Auto) Pending Eosinophils (%) (Auto) Pending Basophils (%) (Auto) Pending Sodium Level Pending Potassium Level Pending Chloride Level Pending Carbon Dioxide Level Pending Blood Urea Nitrogen Pending Creatinine Pending Estimat Glomerular Filtration Rate Pending Glucose Level Pending Calcium Level Pending Phosphorus Level Pending Magnesium Level Pending Total Bilirubin Pending Aspartate Amino Transf (AST/SGOT) Pending Alanine Aminotransferase (ALT/SGPT) Pending Alkaline Phosphatase Pending Total Protein Pending Albumin Pending Globulin Pending Current Medications Medications (Trade) Dose Ordered Sig/Elyssa Route PRN Reason Start Time Stop Time Status Last Admin Dose Admin Acetaminophen (Tylenol) 650 mg Q4H PRN ORAL fever 02/04/18 18:35 02/27/18 18:34 Al Hydroxide/Mg Hydroxide (Mylanta II) 30 ml Q6H PRN ORAL dyspepsia 02/04/18 18:35 02/27/18 18:34 Ceftriaxone Sodium 1 gm/ Dextrose 55 ml @ 110 mls/hr Q24H IVPB 02/05/18 16:00 02/09/18 15:59 Clonidine HCl (Catapres Tab) 0.1 mg Q4H PRN ORAL For SBP>160 02/04/18 18:35 02/27/18 18:34 Clopidogrel Bisulfate (Plavix) 75 mg DAILY ORAL 02/05/18 09:00 03/02/18 08:59 Dextrose (Dextrose 50%) 25 ml STAT PRN IV Hypoglycemia 02/05/18 14:30 02/27/18 14:24 Dextrose (Dextrose 50%) 50 ml STAT PRN IV Hypoglycemia 02/05/18 14:30 02/27/18 14:24 Gabapentin (Neurontin) 100 mg THREE TIMES A DAY ORAL 02/05/18 09:00 02/28/18 08:59 Insulin Aspart (NovoLOG) BEFORE MEALS AND HS SUBQ 02/04/18 21:00 02/28/18 06:29 02/05/18 06:47 Nitroglycerin (Ntg) 0.4 mg Q5M X 3 DOSES PRN SL Prn Chest Pain 02/04/18 18:45 02/27/18 22:14 Olanzapine (ZyPREXA) 2.5 mg Q6H PRN ORAL agitation 02/04/18 18:36 03/06/18 18:35 Ondansetron HCl (Zofran) 4 mg Q6H PRN IVP Nausea & Vomiting 02/04/18 18:36 02/27/18 18:35 Polyethylene Glycol (Miralax) 17 gm HSPRN PRN ORAL Constipation 02/04/18 18:37 03/06/18 18:36 Promethazine HCl/ Codeine (Phenergan with Codeine) 5 ml Q6H PRN ORAL For Cough 02/04/18 18:37 02/28/18 18:36 Sodium Chloride 1,000 ml @ 75 mls/hr [id number] IV 02/04/18 18:45 03/05/18 17:59 02/04/18 20:43 Valproic Acid (Depakene) 750 mg BEDTIME NG 02/04/18 21:00 03/06/18 20:59 02/04/18 20:43 Davy Botello M.D. Feb 05, 2018 07:29
[2018-02-05 07:32] LABS: ALANINE AMINOTRANSFERASE 25 U/L (12-78); ALBUMIN 2.8 G/DL (3.4-5.0); ALBUMIN/GLOBULIN RATIO 0.8 (1.0-2.7); ALKALINE PHOSPHATASE 74 U/L (46-116); ANION GAP 11 mmol/L (5-15); ASPARTATE AMINO TRANSFERASE 17 U/L (15-37); BILIRUBIN,TOTAL 0.3 MG/DL (0.2-1.0); BLOOD UREA NITROGEN 11 mg/dL (7-18); CALCIUM 8.7 MG/DL (8.5-10.1); CARBON DIOXIDE 24 MMOL/L (21-32); CHLORIDE 104 MMOL/L (98-107); CREATININE 0.6 MG/DL (0.55-1.30); PHOSPHORUS 2.6 MG/DL (2.5-4.9); POTASSIUM 3.8 MMOL/L (3.5-5.1); SODIUM 139 MMOL/L (136-145)
[2018-02-05 08:00] VITALS: BP 114/74
[2018-02-05] MEDS ORDERED: OLANZAPINE2.5 MG ORAL (11:31)
[2018-02-05] MEDS ORDERED: DEPAKENE L250 MG/5 M NG (11:31)
[2018-02-05] MEDS ORDERED: AMOX TR-K CLV1 EAC1 ORAL (11:32)
--- NOTE | 2018-02-05 11:34 | Pulmonology Progress Note ---
Assessment/Plan Problems: (1) Atrial fibrillation Assessment & Plan: sinus now (2) Fever Assessment & Plan: on Augmentin (3) Acute encephalopathy (4) Depression (5) Psychosis (6) Diabetes (7) Depression, major Assessment/Plan sinus rhythm now mri : acute cva all reviewed d/w psychiatry f/u neuro recommendation echo noted, EF of 45% sliding scale diabetic diet Subjective ROS Limited/Unobtainable: No Constitutional: Reports: no symptoms HEENT: Repors: no symptoms Respiratory: Reports: no symptoms Allergies: Coded Allergies: No Known Allergies (Unverified , 04/12/17) Objective Last 24 Hour Vital Signs Date Time Temp Pulse Resp B/P (MAP) Pulse Ox O2 Delivery O2 Flow Rate FiO2 02/05/18 09:00 Room Air 02/05/18 08:00 69 02/05/18 08:00 98.0 68 18 114/74 (87) 95 98.0 02/05/18 04:00 97.8 66 20 124/53 (76) 95 97.8 02/05/18 04:00 66 02/05/18 00:00 68 02/04/18 21:00 Room Air 02/04/18 20:00 97.5 69 2 90/58 (69) 98 97.5 02/04/18 20:00 68 02/04/18 18:35 97.3 79 21 99/75 (83) 97 97.3 02/04/18 16:00 97.7 70 24 119/73 (88) 96 97.7 02/04/18 16:00 Room Air 02/04/18 15:23 79 02/04/18 12:00 98.2 78 20 114/74 (87) 99 98.2 02/04/18 12:00 Room Air 02/04/18 11:56 72 Intake and Output 02/04/18 02/05/18 19:00 07:00 Intake Total 1105 ml Output Total 650 ml 800 ml Balance 455 ml -800 ml Intake Oral 300 ml IV Total 805 ml Output Urine Total 570 ml 350 ml Post Void Residual 80 ml 450 ml Bladder Scan Volume Amount 670 999+ 680 999+ 999 999+ 999+ 999+ # Bowel Movements 1 General Appearance: WD/WN HEENT: normocephalic, atraumatic Respiratory/Chest: chest wall non-tender, normal breath sounds Cardiovascular: normal peripheral pulses, normal rate Abdomen: normal bowel sounds, soft, non tender Genitourinary: normal external genitalia Extremities: no clubbing Skin: no rash Microbiology Date/Time Source Procedure Growth Status 02/04/18 13:25 Indwelling Cath Urine Culture - Preliminary NO GROWTH Resulted Laboratory Tests 02/04/18 13:25: Urine Color Yellow, Urine Appearance Clear, Urine pH 5, Urine Specific [place] 1.020, Urine Protein 2+H, Urine Glucose (UA) 4+H, Urine Ketones 2+H, Urine Occult Blood Negative, Urine Nitrite Negative, Urine Bilirubin Negative, Urine Urobilinogen Normal, Urine Leukocyte Esterase Negative, Urine RBC 0-2H, Urine WBC 0-2, Urine Squamous Epithelial Cells None, Urine Bacteria None 02/05/18 06:03: White Blood Count 7.0, Red Blood Count 4.13L, Hemoglobin 12.3L, Hematocrit 35.2L , Mean Corpuscular Volume 85, Mean Corpuscular Hemoglobin 29.8, Mean Corpuscular Hemoglobin Concent 34.9, Red Cell Distribution Width 11.5L, Platelet Count 150, Mean Platelet Volume 9.0, Neutrophils (%) (Auto) 49.6, Lymphocytes (%) (Auto) 26.5, Monocytes (%) (Auto) 12.0H, Eosinophils (%) (Auto) 10.7H, Basophils (%) (Auto) 1.1, Sodium Level 139, Potassium Level 3.8, Chloride Level 104, Carbon Dioxide Level 24, Anion Gap 11, Blood Urea Nitrogen 11, Creatinine 0.6, Estimat Glomerular Filtration Rate > 60, Glucose Level 219H , Calcium Level 8.7, Phosphorus Level 2.6, Magnesium Level 1.7L, Total Bilirubin 0.3, Aspartate Amino Transf (AST/SGOT) 17, Alanine Aminotransferase ( ALT/SGPT) 25, Alkaline Phosphatase 74, Total Protein 6.4, Albumin 2.8L, Globulin 3.6, Albumin/Globulin Ratio 0.8L Current Medications Medications (Trade) Dose Ordered Sig/Elyssa Route PRN Reason Start Time Stop Time Status Last Admin Dose Admin Acetaminophen (Tylenol) 650 mg Q4H PRN ORAL fever 02/04/18 18:35 02/27/18 18:34 Al Hydroxide/Mg Hydroxide (Mylanta II) 30 ml Q6H PRN ORAL dyspepsia 02/04/18 18:35 02/27/18 18:34 Amoxicillin/ Clavulanate Potassium (Augmentin) 500 mg Q12HR ORAL 02/05/18 09:00 02/12/18 08:59 02/05/18 08:31 Clonidine HCl (Catapres Tab) 0.1 mg Q4H PRN ORAL For SBP>160 02/04/18 18:35 02/27/18 18:34 Clopidogrel Bisulfate (Plavix) 75 mg DAILY ORAL 02/05/18 09:00 03/02/18 08:59 02/05/18 08:14 Dextrose (Dextrose 50%) 25 ml STAT PRN IV Hypoglycemia 02/05/18 14:30 02/27/18 14:24 Dextrose (Dextrose 50%) 50 ml STAT PRN IV Hypoglycemia 02/05/18 14:30 02/27/18 14:24 Gabapentin (Neurontin) 100 mg THREE TIMES A DAY ORAL 02/05/18 09:00 02/28/18 08:59 02/05/18 08:15 Insulin Aspart (NovoLOG) BEFORE MEALS AND HS SUBQ 02/04/18 21:00 02/28/18 06:29 02/05/18 06:47 Magnesium Sulfate 100 ml @ 100 mls/hr Q1H IVPB 02/05/18 10:30 02/05/18 12:29 02/05/18 10:24 Nitroglycerin (Ntg) 0.4 mg Q5M X 3 DOSES PRN SL Prn Chest Pain 02/04/18 18:45 02/27/18 22:14 Olanzapine (ZyPREXA) 2.5 mg Q6H PRN ORAL agitation 02/04/18 18:36 03/06/18 18:35 Ondansetron HCl (Zofran) 4 mg Q6H PRN IVP Nausea & Vomiting 02/04/18 18:36 02/27/18 18:35 Polyethylene Glycol (Miralax) 17 gm HSPRN PRN ORAL Constipation 02/04/18 18:37 03/06/18 18:36 Promethazine HCl/ Codeine (Phenergan with Codeine) 5 ml Q6H PRN ORAL For Cough 02/04/18 18:37 02/28/18 18:36 Sodium Chloride 1,000 ml @ 75 mls/hr [id number] IV 02/04/18 18:45 03/05/18 17:59 02/04/18 20:43 Valproic Acid (Depakene) 750 mg BEDTIME NG 02/04/18 21:00 03/06/18 20:59 02/04/18 20:43 Dontae Joshua MD Feb 05, 2018 11:34
--- NOTE | 2018-02-05 11:34 | Internal Med Progress Note ---
Subjective Date of Service: Feb 05, 2018 Physician Name Church,Magdy Attending Physician Jose Michele MD Current Medications Medications (Trade) Dose Ordered Sig/Elyssa Route PRN Reason Start Time Stop Time Status Last Admin Dose Admin Acetaminophen (Tylenol) 650 mg Q4H PRN ORAL fever 02/04/18 18:35 02/27/18 18:34 Al Hydroxide/Mg Hydroxide (Mylanta II) 30 ml Q6H PRN ORAL dyspepsia 02/04/18 18:35 02/27/18 18:34 Amoxicillin/ Clavulanate Potassium (Augmentin) 500 mg Q12HR ORAL 02/05/18 09:00 02/12/18 08:59 02/05/18 08:31 Clonidine HCl (Catapres Tab) 0.1 mg Q4H PRN ORAL For SBP>160 02/04/18 18:35 02/27/18 18:34 Clopidogrel Bisulfate (Plavix) 75 mg DAILY ORAL 02/05/18 09:00 03/02/18 08:59 02/05/18 08:14 Dextrose (Dextrose 50%) 25 ml STAT PRN IV Hypoglycemia 02/05/18 14:30 02/27/18 14:24 Dextrose (Dextrose 50%) 50 ml STAT PRN IV Hypoglycemia 02/05/18 14:30 02/27/18 14:24 Gabapentin (Neurontin) 100 mg THREE TIMES A DAY ORAL 02/05/18 09:00 02/28/18 08:59 02/05/18 08:15 Insulin Aspart (NovoLOG) BEFORE MEALS AND HS SUBQ 02/04/18 21:00 02/28/18 06:29 02/05/18 06:47 Magnesium Sulfate 100 ml @ 100 mls/hr Q1H IVPB 02/05/18 10:30 02/05/18 12:29 02/05/18 10:24 Nitroglycerin (Ntg) 0.4 mg Q5M X 3 DOSES PRN SL Prn Chest Pain 02/04/18 18:45 02/27/18 22:14 Olanzapine (ZyPREXA) 2.5 mg Q6H PRN ORAL agitation 02/04/18 18:36 03/06/18 18:35 Ondansetron HCl (Zofran) 4 mg Q6H PRN IVP Nausea & Vomiting 02/04/18 18:36 02/27/18 18:35 Polyethylene Glycol (Miralax) 17 gm HSPRN PRN ORAL Constipation 02/04/18 18:37 03/06/18 18:36 Promethazine HCl/ Codeine (Phenergan with Codeine) 5 ml Q6H PRN ORAL For Cough 02/04/18 18:37 02/28/18 18:36 Sodium Chloride 1,000 ml @ 75 mls/hr [id number] IV 02/04/18 18:45 03/05/18 17:59 02/04/18 20:43 Valproic Acid (Depakene) 750 mg BEDTIME NG 02/04/18 21:00 03/06/18 20:59 02/04/18 20:43 Allergies: Coded Allergies: No Known Allergies (Unverified , 04/12/17) ROS Limited/Unobtainable: No Constitutional: Reports: no symptoms HEENT: Reports: no symptoms Cardiovascular: Reports: no symptoms Respiratory: Reports: no symptoms Gastrointestinal/Abdominal: Reports: no symptoms Genitourinary: Reports: other - urine retention 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: Reports: no symptoms Subjective 62 YO M admitted with chief complaint of syncope. Now atrial fibrillation. Cover for Int Med-Dr Michele. Refusing to give urine sample. ROBERTA Objective Last Vital Signs Date Time Temp Pulse Resp B/P (MAP) Pulse Ox O2 Delivery O2 Flow Rate FiO2 02/05/18 09:00 Room Air 02/05/18 08:00 69 02/05/18 08:00 98.0 18 114/74 (87) 95 98.0 02/04/18 08:10 21 Laboratory Tests Test 02/04/18 13:25 02/05/18 06:03 Urine Color Yellow Urine Appearance Clear Urine pH 5 (4.5-8.0) Urine Specific [place] 1.020 (1.005-1.035) Urine Protein 2+ (NEGATIVE) H Urine Glucose (UA) 4+ (NEGATIVE) H Urine Ketones 2+ (NEGATIVE) H Urine Occult Blood Negative (NEGATIVE) Urine Nitrite Negative (NEGATIVE) Urine Bilirubin Negative (NEGATIVE) Urine Urobilinogen Normal MG/DL (0.0-1.0) Urine Leukocyte Esterase Negative (NEGATIVE) Urine RBC 0-2 /HPF (0 - 0) H Urine WBC 0-2 /HPF (0 - 0) Urine Squamous Epithelial Cells None /LPF (NONE/OCC) Urine Bacteria None /HPF (NONE) White Blood Count 7.0 K/UL (4.8-10.8) Red Blood Count 4.13 M/UL (4.70-6.10) L Hemoglobin 12.3 G/DL (14.2-18.0) L Hematocrit 35.2 % (42.0-52.0) L Mean Corpuscular Volume 85 FL (80-99) Mean Corpuscular Hemoglobin 29.8 PG (27.0-31.0) Mean Corpuscular Hemoglobin Concent 34.9 G/DL (32.0-36.0) Red Cell Distribution Width 11.5 % (11.6-14.8) L Platelet Count 150 K/UL (150-450) Mean Platelet Volume 9.0 FL (6.5-10.1) Neutrophils (%) (Auto) 49.6 % (45.0-75.0) Lymphocytes (%) (Auto) 26.5 % (20.0-45.0) Monocytes (%) (Auto) 12.0 % (1.0-10.0) H Eosinophils (%) (Auto) 10.7 % (0.0-3.0) H Basophils (%) (Auto) 1.1 % (0.0-2.0) Sodium Level 139 MMOL/L (136-145) Potassium Level 3.8 MMOL/L (3.5-5.1) Chloride Level 104 MMOL/L (98-107) Carbon Dioxide Level 24 MMOL/L (21-32) Anion Gap 11 mmol/L (5-15) Blood Urea Nitrogen 11 mg/dL (7-18) Creatinine 0.6 MG/DL (0.55-1.30) Estimat Glomerular Filtration Rate > 60 mL/min (>60) Glucose Level 219 MG/DL (74-106) H Calcium Level 8.7 MG/DL (8.5-10.1) Phosphorus Level 2.6 MG/DL (2.5-4.9) Magnesium Level 1.7 MG/DL (1.8-2.4) L Total Bilirubin 0.3 MG/DL (0.2-1.0) Aspartate Amino Transf (AST/SGOT) 17 U/L (15-37) Alanine Aminotransferase (ALT/SGPT) 25 U/L (12-78) Alkaline Phosphatase 74 U/L (46-116) Total Protein 6.4 G/DL (6.4-8.2) Albumin 2.8 G/DL (3.4-5.0) L Globulin 3.6 g/dL Albumin/Globulin Ratio 0.8 (1.0-2.7) L Microbiology Date/Time Source Procedure Growth Status 02/04/18 13:25 Indwelling Cath Urine Culture - Preliminary NO GROWTH Resulted Intake and Output 02/04/18 02/05/18 19:00 07:00 Intake Total 1105 ml Output Total 650 ml 800 ml Balance 455 ml -800 ml Intake Oral 300 ml IV Total 805 ml Output Urine Total 570 ml 350 ml Post Void Residual 80 ml 450 ml Bladder Scan Volume Amount 670 999+ 680 999+ 999 999+ 999+ 999+ # Bowel Movements 1 Objective General Appearance: WD/WN, no apparent distress, alert EENT: PERRL/EOMI, normal ENT inspection, TMs normal Neck: non-tender, normal alignment, supple, normal inspection Cardiovascular: normal peripheral pulses, normal rate, regular rhythm, no gallop/murmur, no JVD Respiratory/Chest: chest wall non-tender, lungs clear, normal breath sounds, no respiratory distress, no accessory muscle use Abdomen: normal bowel sounds, non tender, soft, no organomegaly, no mass Extremities: normal range of motion, non-tender 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 (2) HTN (hypertension) Assessment & Plan: Continue prn clonidine (3) Depression, major Assessment & Plan: Continue remeron and zyprexa (4) Syncope (5) Cerebral vascular accident Assessment & Plan: See MRI=no acute CVA-see neurology consult. (6) Elevated WBCs Assessment & Plan: Start ceftriaxone. Await ID consult. Urine culture pending -patient refused in/out cath. (7) Fever Assessment & Plan: Refused urine sample. Continue ceftriaxone. See ID note. (8) Atrial fibrillation Assessment & Plan: Converted to sinus. ?xarelto?, however fall risk. See cardiology note. Status: stable Assessment/Plan Transfer to Rehab on [facility] today Magdy Church MD Feb 05, 2018 11:34
[2018-02-05 12:00] VITALS: BP 118/74
--- NOTE | 2018-02-05 12:54 | General Progress Note ---
Assessment/Plan Status: stable, progressing Assessment/Plan Schizophrenia zyprexa provided ro/st prozac 20mg dc sitter Subjective Date patient seen: Feb 05, 2018 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: Reports: anxiety, depressed, emotional problems Allergies: Coded Allergies: No Known Allergies (Unverified , 04/12/17) Subjective irritable episodes of agitation and being uncooperative at times Objective Last 24 Hour Vital Signs Date Time Temp Pulse Resp B/P (MAP) Pulse Ox O2 Delivery O2 Flow Rate FiO2 02/05/18 09:00 Room Air 02/05/18 08:00 69 02/05/18 08:00 98.0 68 18 114/74 (87) 95 98.0 02/05/18 04:00 97.8 66 20 124/53 (76) 95 97.8 02/05/18 04:00 66 02/05/18 00:00 68 02/04/18 21:00 Room Air 02/04/18 20:00 97.5 69 2 90/58 (69) 98 97.5 02/04/18 20:00 68 02/04/18 18:35 97.3 79 21 99/75 (83) 97 97.3 02/04/18 16:00 97.7 70 24 119/73 (88) 96 97.7 02/04/18 16:00 Room Air 02/04/18 15:23 79 Intake and Output 02/04/18 02/05/18 19:00 07:00 Intake Total 1105 ml Output Total 650 ml 800 ml Balance 455 ml -800 ml Intake Oral 300 ml IV Total 805 ml Output Urine Total 570 ml 350 ml Post Void Residual 80 ml 450 ml Bladder Scan Volume Amount 670 999+ 680 999+ 999 999+ 999+ 999+ # Bowel Movements 1 Laboratory Tests 02/04/18 13:25: Urine Color Yellow, Urine Appearance Clear, Urine pH 5, Urine Specific [place] 1.020, Urine Protein 2+H, Urine Glucose (UA) 4+H, Urine Ketones 2+H, Urine Occult Blood Negative, Urine Nitrite Negative, Urine Bilirubin Negative, Urine Urobilinogen Normal, Urine Leukocyte Esterase Negative, Urine RBC 0-2H, Urine WBC 0-2, Urine Squamous Epithelial Cells None, Urine Bacteria None 02/05/18 06:03: White Blood Count 7.0, Red Blood Count 4.13L, Hemoglobin 12.3L, Hematocrit 35.2L , Mean Corpuscular Volume 85, Mean Corpuscular Hemoglobin 29.8, Mean Corpuscular Hemoglobin Concent 34.9, Red Cell Distribution Width 11.5L, Platelet Count 150, Mean Platelet Volume 9.0, Neutrophils (%) (Auto) 49.6, Lymphocytes (%) (Auto) 26.5, Monocytes (%) (Auto) 12.0H, Eosinophils (%) (Auto) 10.7H, Basophils (%) (Auto) 1.1, Sodium Level 139, Potassium Level 3.8, Chloride Level 104, Carbon Dioxide Level 24, Anion Gap 11, Blood Urea Nitrogen 11, Creatinine 0.6, Estimat Glomerular Filtration Rate > 60, Glucose Level 219H , Calcium Level 8.7, Phosphorus Level 2.6, Magnesium Level 1.7L, Total Bilirubin 0.3, Aspartate Amino Transf (AST/SGOT) 17, Alanine Aminotransferase ( ALT/SGPT) 25, Alkaline Phosphatase 74, Total Protein 6.4, Albumin 2.8L, Globulin 3.6, Albumin/Globulin Ratio 0.8L Height (Feet): 5 Height (Inches): 10.00 Weight (Pounds): 158 General Appearance: no apparent distress, alert Neurologic: oriented x 3, responsive, depressed affect Britney Chaudhary MD Feb 05, 2018 12:54
[2018-02-05] MEDS ORDERED: cefTRIAXone 1 GM in D5W 55 ML IVPB SCH (16:00)
--- NOTE | 2018-02-05 19:04 | General Progress Note ---
Assessment/Plan Status: stable Assessment/Plan # Anemia due to underlying chronic disease. --> Currently stable, no w/u required. Hgb above 13 # Leukocytosis, likely secondary to reactive process, seems to be resolved. # Deep venous thrombosis. The patient with a history of deep venous thrombosis before. --> Imaging has been reviewed. No evidence of deep venous thrombosis at this time. # Thrombocytopenia likely related to reactive process --> monitor closely for improvement --> hold off any further anticoagulants --> 02/02 PLT count normalized. # Diabetes mellitus. A1c goal less than 7. --> 01/30 A1C of 8.8 --> 02/05 Pt refused insulin. # Hyperlipidemia. # Protein-calorie malnutrition. # Syncopal episode. Cardiology and Neurology Service consulted. # Hypertension. Systolic blood pressure goal less than 140. The time the note was entered does not necessarily correspond to the time the patient was seen. Subjective Date patient seen: Feb 05, 2018 Time patient seen: 07:00 ROS Limited/Unobtainable: Yes Hematologic/Lymphatic: Reports: anemia Allergies: Coded Allergies: No Known Allergies (Unverified , 04/12/17) All Systems: reviewed and negative except above Subjective Pt awake and alert. No acute events. DC planned for today. Objective Last 24 Hour Vital Signs Date Time Temp Pulse Resp B/P (MAP) Pulse Ox O2 Delivery O2 Flow Rate FiO2 02/05/18 12:00 67 02/05/18 12:00 97.9 68 18 118/74 (89) 97 97.9 02/05/18 09:00 Room Air 02/05/18 08:00 69 02/05/18 08:00 98.0 68 18 114/74 (87) 95 98.0 02/05/18 04:00 97.8 66 20 124/53 (76) 95 97.8 02/05/18 04:00 66 02/05/18 00:00 68 02/04/18 21:00 Room Air 02/04/18 20:00 97.5 69 2 90/58 (69) 98 97.5 02/04/18 20:00 68 Intake and Output 02/04/18 02/05/18 19:00 07:00 Intake Total 1105 ml Output Total 650 ml 800 ml Balance 455 ml -800 ml Intake Oral 300 ml IV Total 805 ml Output Urine Total 570 ml 350 ml Post Void Residual 80 ml 450 ml Bladder Scan Volume Amount 670 999+ 680 999+ 999 999+ 999+ 999+ # Bowel Movements 1 Laboratory Tests 02/05/18 06:03: White Blood Count 7.0, Red Blood Count 4.13L, Hemoglobin 12.3L, Hematocrit 35.2L , Mean Corpuscular Volume 85, Mean Corpuscular Hemoglobin 29.8, Mean Corpuscular Hemoglobin Concent 34.9, Red Cell Distribution Width 11.5L, Platelet Count 150, Mean Platelet Volume 9.0, Neutrophils (%) (Auto) 49.6, Lymphocytes (%) (Auto) 26.5, Monocytes (%) (Auto) 12.0H, Eosinophils (%) (Auto) 10.7H, Basophils (%) (Auto) 1.1, Sodium Level 139, Potassium Level 3.8, Chloride Level 104, Carbon Dioxide Level 24, Anion Gap 11, Blood Urea Nitrogen 11, Creatinine 0.6, Estimat Glomerular Filtration Rate > 60, Glucose Level 219H , Calcium Level 8.7, Phosphorus Level 2.6, Magnesium Level 1.7L, Total Bilirubin 0.3, Aspartate Amino Transf (AST/SGOT) 17, Alanine Aminotransferase ( ALT/SGPT) 25, Alkaline Phosphatase 74, Total Protein 6.4, Albumin 2.8L, Globulin 3.6, Albumin/Globulin Ratio 0.8L Height (Feet): 5 Height (Inches): 10.00 Weight (Pounds): 158 General Appearance: no apparent distress, alert EENT: PERRL/EOMI Neck: normal alignment Cardiovascular: normal peripheral pulses Respiratory/Chest: no respiratory distress Abdomen: soft Jonathan Morrow MD Feb 05, 2018 19:04
--- NOTE | 2018-02-06 09:21 | Discharge Summary ---
Discharge Summary Discharge Summary _ DATE OF ADMISSION: 01/28/2018 DATE OF DISCHARGE: 02/05/2018 ATTENDING: Dr. Jose Michele CONSULTANTS: Dr. Dontae Botello [facility] COURSE: Patient is a 62-year-old white male, who presented with chief complaint of syncopal episode. Patient is a resident of [facility]. According to staff, patient experienced several episodes of syncope on 2017. He was transferred to [facility]. He has history of diabetes mellitus type 2, hypertension, major depression, history of DVT of the lower extremity. On evaluation at ED, blood work showed elevated glucose level of 298. WBC was slightly elevated to 11, hemoglobin and hematocrit stable. Troponin was negative. EKG was in normal sinus rhythm. Chest x-ray with no acute cardiopulmonary disease. CT of the head with no acute findings. He underwent cardiac evaluation, echocardiogram showed mild systolic dysfunction , EF 45-50%. There was trace mitral, aortic and tricuspid regurgitation. On the monitor, patient was in A. fib. He was started on metoprolol 50 mg twice a day for rate control. He was given Xarelto for anticoagulation. On 01/29/2018, MRI of the brain was done which revealed " a questionable focus of increased diffusion signal in the left thalamus." Neurologist was consulted. Carotid ultrasound revealed a 30% stenosis on both internal carotid arteries. Neurological evaluation was done. MRI findings did not correlate to any focal or lateralizing neurological dysfunction. MRI findings most probably an artifact was in nature. He was given Plavix. He was given physical therapy. He came in afebrile however developed fevers, he was seen by infectious disease specialist. He was initially on ceftriaxone for UTI. Urine culture did not isolate any growth. Antibiotic was switched to Augmentin. Repeat chest x-ray was negative. Fever had an clear source. Fever eventually resolved. Blood glucose was monitored. Hemoglobin A1c was 8.8. He was placed on insulin sliding scale. He has history of schizophrenia and was given Zyprexa. He had episodes of agitation. He was provided a sitter. Prozac was added to his regimen. He had episodes of anemia although levels were stable. Leukocytosis likely secondary to reactive process resolved. Thrombocytopenia was likely related to reactive process. Platelet count normalized. He was eventually transferred back to residential. FINAL DIAGNOSES: Syncope Atrial fibrillation Acute encephalopathy Depression Diabetes mellitus Anemia due to underlying chronic disease Leukocytosis likely reactive history of DVT Thrombocytopenia likely reactive Hyperlipidemia Protein calorie malnutrition Hypertension Schizophrenia Fever and leukocytosis resolved, unclear source. DISPOSITION: Patient was discharged to [facility] on . DISCHARGE MEDICATIONS: Refer to Discharge Medication List. DISCHARGE INSTRUCTIONS: Follow up with PCP in a week. I have been assigned to dictate discharge summary on this account, and I was not involved in the patient's management. Chela Vines NP Feb 06, 2018 09:21
== END 2018-02-05 14:35 | DRG 201 ==
LOC: EDBD 16:26 → EMR 17:33 → OBSVTOIN 19:59 → 2E 19:59 → UNDOADMOB 19:59 → EDBEDREQ 20:18 → 4E 02-01 15:25 → 2W 02-02 13:25 → 2E 02-04 18:13
DX: I48.91 Unspecified atrial fibrillation (principal); G93.40 Encephalopathy, unspecified; E46 Unspecified protein-calorie malnutrition; E11.65 Type 2 diabetes mellitus with hyperglycemia; D69.6 Thrombocytopenia, unspecified; F20.9 Schizophrenia, unspecified; D63.8 Anemia in other chronic diseases classified elsewhere; E78.5 Hyperlipidemia, unspecified; R55 Syncope and collapse; F32.9 Major depressive disorder, single episode, unspecified; I10 Essential (primary) hypertension; Z79.4 Long term (current) use of insulin; Z86.718 Personal history of other venous thrombosis and embolism; R45.1 Restlessness and agitation; R50.9 Fever, unspecified; F17.200 Nicotine dependence, unspecified, uncomplicated
CPT/HCPCS: 36415; 70450; 70551; 71045; 80048; 80053; 80061; 81003; 82306; 82378; 82550; 82553; 82607; 82746; 82962; 83036; 83735; 84100; 84443; 84484; 85007; 85025; 85610; 85730; 87081; 87086; 93005; 93306; 93880; 93970; 94640; 94664; 94760; 99285; J0282; J1815; J7620